=== PATIENT | male | born 1970 ===

== ENCOUNTER 2020-07-03 10:39 | Inpatient (IN) | payer SELFPAY ==
--- NOTE | 2020-07-03 11:07 | EDM.PDOC ---
ED HPI GENERAL MEDICAL PROBLEM - General Stated Complaint: Cough Time Seen by Provider: 07/03/20 10:45 - History of Present Illness INITIAL COMMENTS - FREE TEXT/NARRATIVE: 49-year-old male who denies any other medical problems non-smoker who is presenting with 8 days of primarily dry cough associated with mild pain in his abdomen during the active coughing associated with one episode of diarrhea early in the course no known fevers no myalgias no chest pain patient otherwise feels quite well. No lower extremity pain or swelling he has drank alcohol in the past but has not had any alcohol since the symptoms began. No exacerbating or alleviating factors. Patient does report anorexia and minimal solid food intake over the last few days but is continued to try and drink plenty of fluids no vomiting. - Related Data Allergies Allergy/AdvReac Type Severity Reaction Status Date / Time No Known Allergies Allergy Verified 07/03/20 11:13 Home Meds: Home Meds . [No Known Home Meds] 07/03/20 [History] ED ROS GENERAL - Review of Systems Review Of Systems: See Below Free Text/Narrative/Comment: General: No fever. Skin: No rash. ENT: No sore throat. Neck: No neck stiffness. Respiratory: Per HPI Cardiac: No chest pain. Gastrointestinal: Per HPI Urinary: No dysuria. Musculoskeletal: No myalgias/arthralgias. Neurologic: No headache. ED EXAM, GENERAL - Physical Exam Exam: See Below Free Text/Narrative:: General Appearance: No acute distress, appears comfortable Skin: No rash HEENT: Normocephalic/atraumatic, sclera anicteric, mucous membranes moist Neck: Normal range of motion Chest and Lungs: Normal work of breathing, no wheezing or rhonchi, crackles in the bilateral bases which partially clear with deep breaths Cardiovascular: Regular rate and rhythm, no murmur Abdomen: Soft, non-tender Back: Normal Musculoskeletal: No edema or tenderness Neurologic: Awake, alert, no obvious deficits, moving all extremities Psychiatric: Appropriate, cooperative #1 Interpretation EKG Date: 07/03/20 Time: 11:25 EKG Interpretation Comments: Sinus tachycardia with rate of 101 T wave inversions in 3 and aVF likely baseline no acute ischemia intervals normal Course - Vital Signs Last Recorded V/S: Last Vital Signs Temp 101.7 F H 07/03/20 11:17 Pulse 92 07/03/20 12:37 Resp 18 07/03/20 12:37 BP 124/73 07/03/20 12:37 Pulse Ox 94 L 07/03/20 12:39 - Orders/Labs/Meds Orders: Active Orders 24 hr Category Date Time Status EKG Documentation Completion [RC] STAT Care 07/03/20 10:57 Active BILIRUBIN DIRECT [CHEM] DAILY Lab 07/03/20 13:15 Ordered BILIRUBIN DIRECT [CHEM] DAILY Lab 07/04/20 13:15 Ordered BILIRUBIN DIRECT [CHEM] DAILY Lab 07/05/20 13:15 Ordered BILIRUBIN DIRECT [CHEM] DAILY Lab 07/06/20 13:15 Ordered BILIRUBIN DIRECT [CHEM] DAILY Lab 07/07/20 13:15 Ordered COMPREHENSIVE METABOLIC PN,CMP [CHEM] DAILY Lab 07/03/20 13:15 Ordered COMPREHENSIVE METABOLIC PN,CMP [CHEM] DAILY Lab 07/04/20 13:15 Ordered COMPREHENSIVE METABOLIC PN,CMP [CHEM] DAILY Lab 07/05/20 13:15 Ordered COMPREHENSIVE METABOLIC PN,CMP [CHEM] DAILY Lab 07/06/20 13:15 Ordered COMPREHENSIVE METABOLIC PN,CMP [CHEM] DAILY Lab 07/07/20 13:15 Ordered Remdesivir 200 mg Med 07/03/20 13:01 Ordered Sodium Chloride 0.9% [Normal Saline] 250 ml IV ONETIME Sodium Chloride 0.9% [Saline Flush] Med 07/03/20 10:56 Active 10 ml FLUSH ASDIRECTED PRN Sodium Chloride 0.9% [Saline Flush] Med 07/03/20 10:56 Active 2.5 ml FLUSH ASDIRECTED PRN Saline Lock Insert [OM.PC] Stat Oth 07/03/20 10:56 Ordered Medication Orders Sodium Chloride (Saline Flush) 10 ml FLUSH ASDIRECTED PRN PRN Reason: Keep Vein Open Last Admin: 07/03/20 11:17 Dose: 10 ml Documented by: DAVID Sodium Chloride (Saline Flush) 2.5 ml FLUSH ASDIRECTED PRN PRN Reason: Keep Vein Open Last Admin: 07/03/20 11:17 Dose: 2.5 ml Documented by: DAVID Labs: Laboratory Tests 07/03/20 07/03/20 07/03/20 Range/Units 11:25 11:25 11:25 WBC 4.95 (4.0-11.0) K/uL RBC 4.74 (4.50-5.90) M/uL Hgb 15.1 (13.0-17.0) g/dL Hct 44.0 (38.0-50.0) % MCV 92.8 (80.0-98.0) fL MCH 31.9 (27.0-32.0) pg MCHC 34.3 (31.0-37.0) g/dL RDW Std Deviation 44.5 (28.0-62.0) fl RDW Coeff of Flakita 13 (11.0-15.0) % Plt Count 93 L (150-400) K/uL MPV 12.00 (7.40-12.00) fL Neut % (Auto) 76.7 (48.0-80.0) % Lymph % (Auto) 16.4 (16.0-40.0) % [place] % (Auto) 6.9 (0.0-15.0) % Eos % (Auto) 0.0 (0.0-7.0) % Baso % (Auto) 0.0 (0.0-1.5) % Neut # (Auto) 3.8 (1.4-5.7) K/uL Lymph # (Auto) 0.8 (0.6-2.4) K/uL [place] # (Auto) 0.3 (0.0-0.8) K/uL Eos # (Auto) 0.0 (0.0-0.7) K/uL Baso # (Auto) 0.0 (0.0-0.1) K/uL Nucleated RBC % 0.0 /100WBC Nucleated RBCs # 0 K/uL Sodium 139 (136-148) mmol/L Potassium 3.7 (3.5-5.1) mmol/L Chloride 101 (98-107) mmol/L Carbon Dioxide 27.2 (21.0-32.0) mmol/L BUN 16 (7.0-18.0) mg/dL Creatinine 1.1 (0.8-1.3) mg/dL Est Cr Clr Drug Dosing 71.44 mL/min Estimated GFR (MDRD) > 60.0 ml/min Glucose 118 H (74-106) mg/dL Calcium 8.0 L (8.5-10.1) mg/dL Total Bilirubin 0.4 (0.2-1.0) mg/dL AST 90 H (15-37) IU/L ALT 51 (14-63) IU/L Alkaline Phosphatase 49 (46-116) U/L Troponin I < 0.050 (0.000-0.056) ng/mL B-Natriuretic Peptide 11 (<100) PG/ML Total Protein 7.5 (6.4-8.2) g/dL Albumin 3.1 L (3.4-5.0) g/dL Globulin 4.4 H (2.6-4.0) g/dL Albumin/Globulin Ratio 0.7 L (0.9-1.6) Influenza Type A RNA (NEGATIVE) Influenza Type B RNA (NEGATIVE) SARS-CoV-2 RNA (KOBE) (NEGATIVE) 07/03/20 Range/Units 11:30 WBC (4.0-11.0) K/uL RBC (4.50-5.90) M/uL Hgb (13.0-17.0) g/dL Hct (38.0-50.0) % MCV (80.0-98.0) fL MCH (27.0-32.0) pg MCHC (31.0-37.0) g/dL RDW Std Deviation (28.0-62.0) fl RDW Coeff of Flakita (11.0-15.0) % Plt Count (150-400) K/uL MPV (7.40-12.00) fL Neut % (Auto) (48.0-80.0) % Lymph % (Auto) (16.0-40.0) % [place] % (Auto) (0.0-15.0) % Eos % (Auto) (0.0-7.0) % Baso % (Auto) (0.0-1.5) % Neut # (Auto) (1.4-5.7) K/uL Lymph # (Auto) (0.6-2.4) K/uL [place] # (Auto) (0.0-0.8) K/uL Eos # (Auto) (0.0-0.7) K/uL Baso # (Auto) (0.0-0.1) K/uL Nucleated RBC % /100WBC Nucleated RBCs # K/uL Sodium (136-148) mmol/L Potassium (3.5-5.1) mmol/L Chloride (98-107) mmol/L Carbon Dioxide (21.0-32.0) mmol/L BUN (7.0-18.0) mg/dL Creatinine (0.8-1.3) mg/dL Est Cr Clr Drug Dosing mL/min Estimated GFR (MDRD) ml/min Glucose (74-106) mg/dL Calcium (8.5-10.1) mg/dL Total Bilirubin (0.2-1.0) mg/dL AST (15-37) IU/L ALT (14-63) IU/L Alkaline Phosphatase (46-116) U/L Troponin I (0.000-0.056) ng/mL B-Natriuretic Peptide (<100) PG/ML Total Protein (6.4-8.2) g/dL Albumin (3.4-5.0) g/dL Globulin (2.6-4.0) g/dL Albumin/Globulin Ratio (0.9-1.6) Influenza Type A RNA NEGATIVE (NEGATIVE) Influenza Type B RNA NEGATIVE (NEGATIVE) SARS-CoV-2 RNA (KOBE) POSITIVE H (NEGATIVE) Meds: Medications Generic Name Dose Route Start Last Admin Trade Name Freq PRN Reason Stop Dose Admin Sodium Chloride 10 ml 07/03/20 10:56 07/03/20 11:17 Saline Flush FLUSH 10 ml ASDIRECTED PRN Administration Keep Vein Open Sodium Chloride 2.5 ml 07/03/20 10:56 07/03/20 11:17 Saline Flush FLUSH 2.5 ml ASDIRECTED PRN Administration Keep Vein Open Discontinued Medications Generic Name Dose Route Start Last Admin Trade Name Freq PRN Reason Stop Dose Admin Acetaminophen 650 mg 07/03/20 11:12 07/03/20 11:17 Tylenol PO 07/03/20 11:13 650 mg NOW ONE Administration Dexamethasone 6 mg 07/03/20 12:36 Decadron IVPUSH 07/03/20 12:37 ONETIME ONE Departure - Departure Time of Disposition: 12:28 Disposition: Admitted As Inpatient 67 Condition: Good Clinical Impression: COVID-19, Hypoxia - Discharge Information *PRESCRIPTION DRUG MONITORING PROGRAM REVIEWED*: Not Applicable *COPY OF PRESCRIPTION DRUG MONITORING REPORT IN PATIENT EDUARDO: Not Applicable Instructions: COVID-19 Frequently Asked Questions, Prevent the Spread of COVID- 19 if You Are Sick - [facility] Referrals: PCP,None [Primary Care Provider] - Additional Instructions: [facility] - Primary Care [address] [place] [address] [facility] [address] [place] [address] The following information is given to patients seen in the emergency department who are being discharged to home. This information is to outline your options for follow-up care. We provide all patients seen in our emergency department with a follow-up referral. The need for follow-up, as well as the timing and circumstances, are variable depending upon the specifics of your emergency department visit. If you don't have a primary care physician on staff, we will provide you with a referral. We always advise you to contact your personal physician following an emergency department visit to inform them of the circumstance of the visit and for follow-up with them and/or the need for any referrals to a consulting specialist. The emergency department will also refer you to a specialist when appropriate. This referral assures that you have the opportunity for follow-up care with a specialist. All of these measure are taken in an effort to provide you with optimal care, which includes your follow-up. Under all circumstances we always encourage you to contact your private physician who remains a resource for coordinating your care. When calling for follow-up care, please make the office aware that this follow-up is from your recent emergency room visit. If for any reason you are refused follow-up, please contact the [facility] Emergency Department at and asked to speak to the emergency department charge nurse. Sepsis Event Note (ED) - Focused Exam Vital Signs: Vital Signs Temp Temp Pulse Resp BP Pulse Ox 07/03/20 12:39 94 L 07/03/20 12:37 92 18 124/73 88 L 07/03/20 12:00 105 H 18 107/74 94 L 07/03/20 11:30 102 H 18 129/78 94 L 07/03/20 11:17 101.7 F H 07/03/20 11:00 20 94 L 07/03/20 10:50 101.7 F H 107 H 20 129/75 90 L - My Orders Last 24 Hours: My Active Orders 07/03/20 10:56 Sodium Chloride 0.9% [Saline Flush] 10 ml FLUSH ASDIRECTED PRN Sodium Chloride 0.9% [Saline Flush] 2.5 ml FLUSH ASDIRECTED PRN Saline Lock Insert [OM.PC] Stat 07/03/20 10:57 EKG Documentation Completion [RC] STAT 07/03/20 13:01 Remdesivir 200 mg Sodium Chloride 0.9% [Normal Saline] 250 ml IV ONETIME 07/03/20 13:15 BILIRUBIN DIRECT [CHEM] DAILY COMPREHENSIVE METABOLIC PN,CMP [CHEM] DAILY 07/04/20 13:15 BILIRUBIN DIRECT [CHEM] DAILY COMPREHENSIVE METABOLIC PN,CMP [CHEM] DAILY 07/05/20 13:15 BILIRUBIN DIRECT [CHEM] DAILY COMPREHENSIVE METABOLIC PN,CMP [CHEM] DAILY 07/06/20 13:15 BILIRUBIN DIRECT [CHEM] DAILY COMPREHENSIVE METABOLIC PN,CMP [CHEM] DAILY 07/07/20 13:15 BILIRUBIN DIRECT [CHEM] DAILY COMPREHENSIVE METABOLIC PN,CMP [CHEM] DAILY - Assessment/Plan Last 24 Hours: My Active Orders 07/03/20 10:56 Sodium Chloride 0.9% [Saline Flush] 10 ml FLUSH ASDIRECTED PRN Sodium Chloride 0.9% [Saline Flush] 2.5 ml FLUSH ASDIRECTED PRN Saline Lock Insert [OM.PC] Stat 07/03/20 10:57 EKG Documentation Completion [RC] STAT 07/03/20 13:01 Remdesivir 200 mg Sodium Chloride 0.9% [Normal Saline] 250 ml IV ONETIME 07/03/20 13:15 BILIRUBIN DIRECT [CHEM] DAILY COMPREHENSIVE METABOLIC PN,CMP [CHEM] DAILY 07/04/20 13:15 BILIRUBIN DIRECT [CHEM] DAILY COMPREHENSIVE METABOLIC PN,CMP [CHEM] DAILY 07/05/20 13:15 BILIRUBIN DIRECT [CHEM] DAILY COMPREHENSIVE METABOLIC PN,CMP [CHEM] DAILY 07/06/20 13:15 BILIRUBIN DIRECT [CHEM] DAILY COMPREHENSIVE METABOLIC PN,CMP [CHEM] DAILY 07/07/20 13:15 BILIRUBIN DIRECT [CHEM] DAILY COMPREHENSIVE METABOLIC PN,CMP [CHEM] DAILY Assessment:: Nontoxic-appearing 49-year-old male who denies past medical history is presenting with nonproductive cough poor appetite and one episode of diarrhea for the last 8 days. Certainly Covid is a consideration of the viral syndrome also consideration patient has some scant crackles in the bilateral bases on exam but normal work of breathing he has no lower extremity pain or swelling he does not clinically appear to be in decompensated heart failure but this is also a possibility EKG troponin BMP ordered as well as CBC and CMP he has no abdominal pain and no abdominal tenderness that would suggest appendicitis diverticulitis or any ovarian pathology. Room air O2 saturation in the low 90s heart rate in the upper 90s. Not acutely toxic 1226: Patient's labs notable for mild thrombocytopenia likely related to viral infection. Chest x-ray shows diffuse patchy airspace opacities consistent with Covid and his COVID-19 test is positive. I do think this is the cause of the patient's symptoms. Patient is hypoxic with a room air O2 sat in the upper 80s. For this reason patient was placed on nasal cannula which he had a good response to. Given this hypoxia patient given a dose of Decadron patient d iscussed with Dr. Fuentes and we will admit for acute hypoxic respiratory failure due to COVID-19. Per discussion with Dr. Fuentes patient is a candidate for remdesivir as well and this is been ordered. My entire encounter was conducted with a video airport attendant.
[2020-07-03] MEDS ORDERED: Acetaminophen 325 MG Tab PO ONE (11:12)
[2020-07-03] MEDS: Sodium Chloride 0.9% 10 ML Syringe FLUSH PRN (11:17)
[2020-07-03] MEDS: Sodium Chloride 0.9% 2.5 ML Syringe FLUSH PRN (11:17)
[2020-07-03 12:01] LABS: BLOOD UREA NITROGEN,BUN 16 mg/dL (7.0-18.0); CARBON DIOXIDE,CO2 27.2 mmol/L (21.0-32.0); CHLORIDE,CL 101 mmol/L (98-107); GLUCOSE RANDOM 118 mg/dL (74-106); POTASSIUM,K 3.7 mmol/L (3.5-5.1); SODIUM,NA 139 mmol/L (136-148)
--- NOTE | 2020-07-03 12:12 | CR ---
INDICATION: Cough myalgias, crackles on exam TECHNIQUE: Chest 1 view. COMPARISON: None. FINDINGS: The heart is normal in size. There are patchy bilateral airspace opacities. Negative for pleural effusion or pneumothorax. The bones are unremarkable. IMPRESSION: Bilateral patchy airspace opacities, findings which can be seen with a viral infectious process such as COVID-19 or multifocal pneumonia. Dictated by Noemí Chauhan MD @ Jul 03 2020 12:10PM Signed by Dr. Noemí Chauhan @ Jul 03 2020 12:11PM
[2020-07-03 12:15] LABS: CORONAVIRUS COVID-19 NAA POSITIVE (NEGATIVE); INFLUENZA A NAA NEGATIVE (NEGATIVE); INFLUENZA B NAA NEGATIVE (NEGATIVE)
[2020-07-03] MEDS ORDERED: Dexamethasone 10 MG/ML SDV IVPUSH ONE (12:36)
[2020-07-03] MEDS ORDERED: REMDESIVIR 200 MG in Sodium Chloride 0.9% 250 ML IV ONE ×2 (13:01→13:45)
[2020-07-03] MEDS: Enoxaparin 40 MG/0.4 ML Syringe SUBCUT SCH (16:02)
--- NOTE | 2020-07-03 20:36 | PCM.HP.2 ---
H&P History of Present Illness - General Date of Service: 07/03/20 Admit Problem/Dx: Admission Diagnosis/Problem Admission Diagnosis/Problem Hypoxia - History of Present Illness Initial Comments - Free Text/Narative: 49 yo male who presents to the ED with complaint of cough for eight days. Patient denies any fevers, shortness of breath, chest pain, or fatigue. PAtient was noted to be satting in mid 80s on room air. Patient tested positive for COVID and CXR reported bilateral patchy opacities. - Related Data Allergies/Adverse Reactions: Allergies Allergy/AdvReac Type Severity Reaction Status Date / Time No Known Allergies Allergy Verified 07/03/20 15:04 Home Medications: Home Meds . [No Known Home Meds] 07/03/20 [History] Past Medical History - Past Health History Medical/Surgical History: Denies Medical/Surgical History - Past Surgical History GI Surgical History: Reports: Other (See Below) Other GI Surgeries/Procedures: pt has scar on left lower side Social & Family History - Family History Family Medical History: No Pertinent Family History - Tobacco Use Tobacco Use Status *Q: Former Tobacco User Used Tobacco, but Quit: Yes Month/Year Tobacco Last Used: 8 yrs ago Second Hand Smoke Exposure: No - Caffeine Use Caffeine Use: Reports: Coffee - Recreational Drug Use Recreational Drug Use: No H&P Review of Systems - Review of Systems: Review Of Systems: Comprehensive ROS is negative, except as noted in HPI. Exam - Exam Exam: See Below - Vital Signs Vital Signs: Last Vital Signs Temp 36.2 C 07/03/20 19:38 Pulse 92 07/03/20 19:38 Resp 20 07/03/20 19:38 BP 111/58 L 07/03/20 19:38 Pulse Ox 92 L 07/03/20 19:38 Weight: 208.3 kg - Exam General: Alert, Oriented HEENT: Mucosa Moist & [place] Lungs: Clear to Auscultation, Normal Respiratory Effort Cardiovascular: Regular Rate, Regular Rhythm GI/Abdominal Exam: Normal Bowel Sounds, Soft, Non-Tender Extremities: Non-Tender, No Pedal Edema Skin: Warm, Dry, Intact Neurological: Cranial Nerves Intact - Patient Data Lab Results Last 24 hrs: Laboratory Results - last 24 hr 07/03/20 07/03/20 07/03/20 Range/Units 11:25 11:25 11:25 WBC 4.95 (4.0-11.0) K/uL RBC 4.74 (4.50-5.90) M/uL Hgb 15.1 (13.0-17.0) g/dL Hct 44.0 (38.0-50.0) % MCV 92.8 (80.0-98.0) fL MCH 31.9 (27.0-32.0) pg MCHC 34.3 (31.0-37.0) g/dL RDW Std Deviation 44.5 (28.0-62.0) fl RDW Coeff of Flakita 13 (11.0-15.0) % Plt Count 93 L (150-400) K/uL MPV 12.00 (7.40-12.00) fL Neut % (Auto) 76.7 (48.0-80.0) % Lymph % (Auto) 16.4 (16.0-40.0) % [place] % (Auto) 6.9 (0.0-15.0) % Eos % (Auto) 0.0 (0.0-7.0) % Baso % (Auto) 0.0 (0.0-1.5) % Neut # (Auto) 3.8 (1.4-5.7) K/uL Lymph # (Auto) 0.8 (0.6-2.4) K/uL [place] # (Auto) 0.3 (0.0-0.8) K/uL Eos # (Auto) 0.0 (0.0-0.7) K/uL Baso # (Auto) 0.0 (0.0-0.1) K/uL Nucleated RBC % 0.0 /100WBC Nucleated RBCs # 0 K/uL Sodium 139 (136-148) mmol/L Potassium 3.7 (3.5-5.1) mmol/L Chloride 101 (98-107) mmol/L Carbon Dioxide 27.2 (21.0-32.0) mmol/L BUN 16 (7.0-18.0) mg/dL Creatinine 1.1 (0.8-1.3) mg/dL Est Cr Clr Drug Dosing 71.44 mL/min Estimated GFR (MDRD) > 60.0 ml/min Glucose 118 H (74-106) mg/dL Calcium 8.0 L (8.5-10.1) mg/dL Total Bilirubin 0.4 (0.2-1.0) mg/dL Direct Bilirubin 0.10 (0.0-0.5) mg/dL AST 90 H (15-37) IU/L ALT 51 (14-63) IU/L Alkaline Phosphatase 49 (46-116) U/L Troponin I < 0.050 (0.000-0.056) ng/mL B-Natriuretic Peptide 11 (<100) PG/ML Total Protein 7.5 (6.4-8.2) g/dL Albumin 3.1 L (3.4-5.0) g/dL Globulin 4.4 H (2.6-4.0) g/dL Albumin/Globulin Ratio 0.7 L (0.9-1.6) Influenza Type A RNA (NEGATIVE) Influenza Type B RNA (NEGATIVE) SARS-CoV-2 RNA (KOBE) (NEGATIVE) 07/03/20 Range/Units 11:30 WBC (4.0-11.0) K/uL RBC (4.50-5.90) M/uL Hgb (13.0-17.0) g/dL Hct (38.0-50.0) % MCV (80.0-98.0) fL MCH (27.0-32.0) pg MCHC (31.0-37.0) g/dL RDW Std Deviation (28.0-62.0) fl RDW Coeff of Flakita (11.0-15.0) % Plt Count (150-400) K/uL MPV (7.40-12.00) fL Neut % (Auto) (48.0-80.0) % Lymph % (Auto) (16.0-40.0) % [place] % (Auto) (0.0-15.0) % Eos % (Auto) (0.0-7.0) % Baso % (Auto) (0.0-1.5) % Neut # (Auto) (1.4-5.7) K/uL Lymph # (Auto) (0.6-2.4) K/uL [place] # (Auto) (0.0-0.8) K/uL Eos # (Auto) (0.0-0.7) K/uL Baso # (Auto) (0.0-0.1) K/uL Nucleated RBC % /100WBC Nucleated RBCs # K/uL Sodium (136-148) mmol/L Potassium (3.5-5.1) mmol/L Chloride (98-107) mmol/L Carbon Dioxide (21.0-32.0) mmol/L BUN (7.0-18.0) mg/dL Creatinine (0.8-1.3) mg/dL Est Cr Clr Drug Dosing mL/min Estimated GFR (MDRD) ml/min Glucose (74-106) mg/dL Calcium (8.5-10.1) mg/dL Total Bilirubin (0.2-1.0) mg/dL Direct Bilirubin (0.0-0.5) mg/dL AST (15-37) IU/L ALT (14-63) IU/L Alkaline Phosphatase (46-116) U/L Troponin I (0.000-0.056) ng/mL B-Natriuretic Peptide (<100) PG/ML Total Protein (6.4-8.2) g/dL Albumin (3.4-5.0) g/dL Globulin (2.6-4.0) g/dL Albumin/Globulin Ratio (0.9-1.6) Influenza Type A RNA NEGATIVE (NEGATIVE) Influenza Type B RNA NEGATIVE (NEGATIVE) SARS-CoV-2 RNA (KOBE) POSITIVE H (NEGATIVE) Result Diagrams: 07/03/20 11:25 07/03/20 11:25 Sepsis Event Note - Evaluation Sepsis Screening Result: No Definite Risk - Focused Exam Vital Signs: Vital Signs Temp Temp Pulse Resp BP Pulse Ox 07/03/20 19:38 36.2 C 92 20 111/58 L 92 L 07/03/20 17:00 36.6 C 84 18 110/63 92 L 07/03/20 14:06 36.7 C 93 20 102/73 89 L 07/03/20 13:30 36.2 C 93 18 116/75 96 07/03/20 12:39 94 L 07/03/20 12:37 92 18 124/73 88 L 07/03/20 12:00 105 H 18 107/74 94 L 07/03/20 11:30 102 H 18 129/78 94 L 07/03/20 11:17 38.7 C H 07/03/20 11:00 20 94 L 07/03/20 10:50 38.7 C H 107 H 20 129/75 90 L Problem List Initiated/Reviewed/Updated: Yes Orders Last 24hrs: Active Orders 24 hr Category Date Time Status Admission Status [Patient Status] [ADT] Timed ADT 07/04/20 05:00 Active Vital Signs [RC] Q4H Care 07/03/20 13:47 Active Regular Diet [DIET] Diet 07/03/20 Dinner Active BILIRUBIN DIRECT [CHEM] DAILY Lab 07/04/20 13:15 Ordered BILIRUBIN DIRECT [CHEM] DAILY Lab 07/05/20 13:15 Ordered BILIRUBIN DIRECT [CHEM] DAILY Lab 07/06/20 13:15 Ordered BILIRUBIN DIRECT [CHEM] DAILY Lab 07/07/20 13:15 Ordered CBC WITH AUTO DIFF [HEME] Routine Lab 07/04/20 05:00 Ordered COMPREHENSIVE METABOLIC PN,CMP [CHEM] DAILY Lab 07/04/20 13:15 Ordered COMPREHENSIVE METABOLIC PN,CMP [CHEM] DAILY Lab 07/05/20 13:15 Ordered COMPREHENSIVE METABOLIC PN,CMP [CHEM] DAILY Lab 07/06/20 13:15 Ordered COMPREHENSIVE METABOLIC PN,CMP [CHEM] DAILY Lab 07/07/20 13:15 Ordered COMPREHENSIVE METABOLIC PN,CMP [CHEM] Routine Lab 07/04/20 05:00 Ordered Enoxaparin [Lovenox] Med 07/03/20 16:00 Active 40 mg SUBCUT Q24H Sodium Chloride 0.9% [Saline Flush] Med 07/03/20 10:56 Active 10 ml FLUSH ASDIRECTED PRN Sodium Chloride 0.9% [Saline Flush] Med 07/03/20 10:56 Active 2.5 ml FLUSH ASDIRECTED PRN Saline Lock Insert [OM.PC] Stat Oth 07/03/20 10:56 Ordered Medication Orders Enoxaparin Sodium (Lovenox) 40 mg SUBCUT Q24H YADY Last Admin: 07/03/20 16:02 Dose: 40 mg Documented by: KASHIFPRI Sodium Chloride (Saline Flush) 10 ml FLUSH ASDIRECTED PRN PRN Reason: Keep Vein Open Last Admin: 07/03/20 11:17 Dose: 10 ml Documented by: DAVID Sodium Chloride (Saline Flush) 2.5 ml FLUSH ASDIRECTED PRN PRN Reason: Keep Vein Open Last Admin: 07/03/20 11:17 Dose: 2.5 ml Documented by: DAVID Assessment/Plan Comment:: 49 yo male admitted for COVID pneumonia. We will treat with dexamethasone and remdisivir. We will wean NC O2 as tolerated. We will place on lovenox for VTE prophylaxis.
[2020-07-03] MEDS ORDERED: Benzonatate 100 MG Cap PO PRN (21:44)
[2020-07-04 06:56] LABS: BLOOD UREA NITROGEN,BUN 15 mg/dL (7.0-18.0); CARBON DIOXIDE,CO2 27.7 mmol/L (21.0-32.0); CHLORIDE,CL 104 mmol/L (98-107); GLUCOSE RANDOM 151 mg/dL (74-106); POTASSIUM,K 3.6 mmol/L (3.5-5.1); SODIUM,NA 140 mmol/L (136-148)
[2020-07-04] MEDS ORDERED: Albuterol/Ipratropium 4 GM Inhalation Spray INH PRN (08:00)
--- NOTE | 2020-07-04 08:16 | PCM.PN ---
- General Info Date of Service: 07/04/20 Subjective Update: Reports breathing about the same as yesterday. Reports coughing when trying to take a deep breath. Tolerated dinner last night. No fevers, chills, chest pain, nausea or vomiting. - Patient Data Vitals - Most Recent: Last Vital Signs Temp 36.9 C 07/04/20 04:07 Pulse 77 07/04/20 04:07 Resp 20 07/04/20 04:07 BP 116/63 07/04/20 04:07 Pulse Ox 90 L 07/04/20 04:07 Weight - Most Recent: 208.3 kg I&O - Last 24 Hours: Intake & Output 07/03/20 07/04/20 07/04/20 22:59 06:59 14:59 Intake Total 290 300 Output Total 400 450 Balance -110 -150 Lab Results Last 24 Hours: Laboratory Results - last 24 hr 07/03/20 07/03/20 07/03/20 Range/Units 11:25 11:25 11:25 WBC 4.95 (4.0-11.0) K/uL RBC 4.74 (4.50-5.90) M/uL Hgb 15.1 (13.0-17.0) g/dL Hct 44.0 (38.0-50.0) % MCV 92.8 (80.0-98.0) fL MCH 31.9 (27.0-32.0) pg MCHC 34.3 (31.0-37.0) g/dL RDW Std Deviation 44.5 (28.0-62.0) fl RDW Coeff of Flakita 13 (11.0-15.0) % Plt Count 93 L (150-400) K/uL MPV 12.00 (7.40-12.00) fL Neut % (Auto) 76.7 (48.0-80.0) % Lymph % (Auto) 16.4 (16.0-40.0) % [place] % (Auto) 6.9 (0.0-15.0) % Eos % (Auto) 0.0 (0.0-7.0) % Baso % (Auto) 0.0 (0.0-1.5) % Neut # (Auto) 3.8 (1.4-5.7) K/uL Lymph # (Auto) 0.8 (0.6-2.4) K/uL [place] # (Auto) 0.3 (0.0-0.8) K/uL Eos # (Auto) 0.0 (0.0-0.7) K/uL Baso # (Auto) 0.0 (0.0-0.1) K/uL Nucleated RBC % 0.0 /100WBC Nucleated RBCs # 0 K/uL Sodium 139 (136-148) mmol/L Potassium 3.7 (3.5-5.1) mmol/L Chloride 101 (98-107) mmol/L Carbon Dioxide 27.2 (21.0-32.0) mmol/L BUN 16 (7.0-18.0) mg/dL Creatinine 1.1 (0.8-1.3) mg/dL Est Cr Clr Drug Dosing 71.44 mL/min Estimated GFR (MDRD) > 60.0 ml/min Glucose 118 H (74-106) mg/dL Calcium 8.0 L (8.5-10.1) mg/dL Total Bilirubin 0.4 (0.2-1.0) mg/dL Direct Bilirubin 0.10 (0.0-0.5) mg/dL AST 90 H (15-37) IU/L ALT 51 (14-63) IU/L Alkaline Phosphatase 49 (46-116) U/L Troponin I < 0.050 (0.000-0.056) ng/mL B-Natriuretic Peptide 11 (<100) PG/ML Total Protein 7.5 (6.4-8.2) g/dL Albumin 3.1 L (3.4-5.0) g/dL Globulin 4.4 H (2.6-4.0) g/dL Albumin/Globulin Ratio 0.7 L (0.9-1.6) Influenza Type A RNA (NEGATIVE) Influenza Type B RNA (NEGATIVE) SARS-CoV-2 RNA (KOBE) (NEGATIVE) 07/03/20 07/04/20 07/04/20 Range/Units 11:30 06:15 06:15 WBC 5.80 (4.0-11.0) K/uL RBC 4.67 (4.50-5.90) M/uL Hgb 14.6 (13.0-17.0) g/dL Hct 43.2 (38.0-50.0) % MCV 92.5 (80.0-98.0) fL MCH 31.3 (27.0-32.0) pg MCHC 33.8 (31.0-37.0) g/dL RDW Std Deviation 43.9 (28.0-62.0) fl RDW Coeff of Flakita 13 (11.0-15.0) % Plt Count 110 L (150-400) K/uL MPV 11.30 (7.40-12.00) fL Neut % (Auto) 73.9 (48.0-80.0) % Lymph % (Auto) 16.9 (16.0-40.0) % [place] % (Auto) 9.0 (0.0-15.0) % Eos % (Auto) 0.0 (0.0-7.0) % Baso % (Auto) 0.2 (0.0-1.5) % Neut # (Auto) 4.3 (1.4-5.7) K/uL Lymph # (Auto) 1.0 (0.6-2.4) K/uL [place] # (Auto) 0.5 (0.0-0.8) K/uL Eos # (Auto) 0.0 (0.0-0.7) K/uL Baso # (Auto) 0.0 (0.0-0.1) K/uL Nucleated RBC % 0.0 /100WBC Nucleated RBCs # 0 K/uL Sodium 140 (136-148) mmol/L Potassium 3.6 (3.5-5.1) mmol/L Chloride 104 (98-107) mmol/L Carbon Dioxide 27.7 (21.0-32.0) mmol/L BUN 15 (7.0-18.0) mg/dL Creatinine 0.9 (0.8-1.3) mg/dL Est Cr Clr Drug Dosing 87.31 mL/min Estimated GFR (MDRD) > 60.0 ml/min Glucose 151 H (74-106) mg/dL Calcium 7.8 L (8.5-10.1) mg/dL Total Bilirubin 0.3 (0.2-1.0) mg/dL Direct Bilirubin (0.0-0.5) mg/dL AST 83 H (15-37) IU/L ALT 46 (14-63) IU/L Alkaline Phosphatase 47 (46-116) U/L Troponin I (0.000-0.056) ng/mL B-Natriuretic Peptide (<100) PG/ML Total Protein 7.1 (6.4-8.2) g/dL Albumin 2.8 L (3.4-5.0) g/dL Globulin 4.3 H (2.6-4.0) g/dL Albumin/Globulin Ratio 0.7 L (0.9-1.6) Influenza Type A RNA NEGATIVE (NEGATIVE) Influenza Type B RNA NEGATIVE (NEGATIVE) SARS-CoV-2 RNA (KOBE) POSITIVE H (NEGATIVE) Med Orders - Current: Current Medications Benzonatate (Tessalon Perles) 100 mg PO TID PRN PRN Reason: Cough Last Admin: 07/04/20 00:08 Dose: 100 mg Documented by: Dexamethasone (Dexamethasone) 6 mg PO Q24H YADY Enoxaparin Sodium (Lovenox) 40 mg SUBCUT Q24H [facility] Last Admin: 07/03/20 16:02 Dose: 40 mg Documented by: Remdesivir 100 mg/ Sodium (Chloride) 100 mls @ 100 mls/hr IV Q24H YADY Stop: 07/07/20 14:59 Sodium Chloride (Saline Flush) 10 ml FLUSH ASDIRECTED PRN PRN Reason: Keep Vein Open Last Admin: 07/03/20 11:17 Dose: 10 ml Documented by: Sodium Chloride (Saline Flush) 2.5 ml FLUSH ASDIRECTED PRN PRN Reason: Keep Vein Open Last Admin: 07/03/20 11:17 Dose: 2.5 ml Documented by: Discontinued Medications Acetaminophen (Tylenol) 650 mg PO NOW ONE Stop: 07/03/20 11:13 Last Admin: 07/03/20 11:17 Dose: 650 mg Documented by: Albuterol/Ipratropium (Combivent Respimat) 0 gm INH Q4H PRN PRN Reason: Dyspnea Dexamethasone (Decadron) 6 mg IVPUSH ONETIME ONE Stop: 07/03/20 12:37 Last Admin: 07/03/20 13:34 Dose: 6 mg Documented by: Remdesivir 200 mg/ Sodium (Chloride) 250 mls @ 250 mls/hr IV ONETIME ONE Stop: 07/03/20 13:02 Last Admin: 07/03/20 14:41 Dose: Not Given Documented by: Remdesivir 200 mg/ Sodium (Chloride) 250 mls @ 250 mls/hr IV ONETIME ONE Stop: 07/03/20 14:44 Last Admin: 07/03/20 14:21 Dose: 250 mls/hr Documented by: - Exam General: Alert, Oriented, Cooperative, No Acute Distress Lungs: Clear to Auscultation, Other (poor inspiratory effort) Cardiovascular: Regular Rate, Regular Rhythm GI/Abdominal Exam: Normal Bowel Sounds, Soft, Non-Tender, No Distention Extremities: Normal Inspection, No Pedal Edema - Patient Data Lab Results Last 24 hrs: Laboratory Results - last 24 hr 07/03/20 07/03/20 07/03/20 Range/Units 11:25 11:25 11:25 WBC 4.95 (4.0-11.0) K/uL RBC 4.74 (4.50-5.90) M/uL Hgb 15.1 (13.0-17.0) g/dL Hct 44.0 (38.0-50.0) % MCV 92.8 (80.0-98.0) fL MCH 31.9 (27.0-32.0) pg MCHC 34.3 (31.0-37.0) g/dL RDW Std Deviation 44.5 (28.0-62.0) fl RDW Coeff of Flakita 13 (11.0-15.0) % Plt Count 93 L (150-400) K/uL MPV 12.00 (7.40-12.00) fL Neut % (Auto) 76.7 (48.0-80.0) % Lymph % (Auto) 16.4 (16.0-40.0) % [place] % (Auto) 6.9 (0.0-15.0) % Eos % (Auto) 0.0 (0.0-7.0) % Baso % (Auto) 0.0 (0.0-1.5) % Neut # (Auto) 3.8 (1.4-5.7) K/uL Lymph # (Auto) 0.8 (0.6-2.4) K/uL [place] # (Auto) 0.3 (0.0-0.8) K/uL Eos # (Auto) 0.0 (0.0-0.7) K/uL Baso # (Auto) 0.0 (0.0-0.1) K/uL Nucleated RBC % 0.0 /100WBC Nucleated RBCs # 0 K/uL Sodium 139 (136-148) mmol/L Potassium 3.7 (3.5-5.1) mmol/L Chloride 101 (98-107) mmol/L Carbon Dioxide 27.2 (21.0-32.0) mmol/L BUN 16 (7.0-18.0) mg/dL Creatinine 1.1 (0.8-1.3) mg/dL Est Cr Clr Drug Dosing 71.44 mL/min Estimated GFR (MDRD) > 60.0 ml/min Glucose 118 H (74-106) mg/dL Calcium 8.0 L (8.5-10.1) mg/dL Total Bilirubin 0.4 (0.2-1.0) mg/dL Direct Bilirubin 0.10 (0.0-0.5) mg/dL AST 90 H (15-37) IU/L ALT 51 (14-63) IU/L Alkaline Phosphatase 49 (46-116) U/L Troponin I < 0.050 (0.000-0.056) ng/mL B-Natriuretic Peptide 11 (<100) PG/ML Total Protein 7.5 (6.4-8.2) g/dL Albumin 3.1 L (3.4-5.0) g/dL Globulin 4.4 H (2.6-4.0) g/dL Albumin/Globulin Ratio 0.7 L (0.9-1.6) Influenza Type A RNA (NEGATIVE) Influenza Type B RNA (NEGATIVE) SARS-CoV-2 RNA (KOBE) (NEGATIVE) 07/03/20 07/04/20 07/04/20 Range/Units 11:30 06:15 06:15 WBC 5.80 (4.0-11.0) K/uL RBC 4.67 (4.50-5.90) M/uL Hgb 14.6 (13.0-17.0) g/dL Hct 43.2 (38.0-50.0) % MCV 92.5 (80.0-98.0) fL MCH 31.3 (27.0-32.0) pg MCHC 33.8 (31.0-37.0) g/dL RDW Std Deviation 43.9 (28.0-62.0) fl RDW Coeff of Flakita 13 (11.0-15.0) % Plt Count 110 L (150-400) K/uL MPV 11.30 (7.40-12.00) fL Neut % (Auto) 73.9 (48.0-80.0) % Lymph % (Auto) 16.9 (16.0-40.0) % [place] % (Auto) 9.0 (0.0-15.0) % Eos % (Auto) 0.0 (0.0-7.0) % Baso % (Auto) 0.2 (0.0-1.5) % Neut # (Auto) 4.3 (1.4-5.7) K/uL Lymph # (Auto) 1.0 (0.6-2.4) K/uL [place] # (Auto) 0.5 (0.0-0.8) K/uL Eos # (Auto) 0.0 (0.0-0.7) K/uL Baso # (Auto) 0.0 (0.0-0.1) K/uL Nucleated RBC % 0.0 /100WBC Nucleated RBCs # 0 K/uL Sodium 140 (136-148) mmol/L Potassium 3.6 (3.5-5.1) mmol/L Chloride 104 (98-107) mmol/L Carbon Dioxide 27.7 (21.0-32.0) mmol/L BUN 15 (7.0-18.0) mg/dL Creatinine 0.9 (0.8-1.3) mg/dL Est Cr Clr Drug Dosing 87.31 mL/min Estimated GFR (MDRD) > 60.0 ml/min Glucose 151 H (74-106) mg/dL Calcium 7.8 L (8.5-10.1) mg/dL Total Bilirubin 0.3 (0.2-1.0) mg/dL Direct Bilirubin (0.0-0.5) mg/dL AST 83 H (15-37) IU/L ALT 46 (14-63) IU/L Alkaline Phosphatase 47 (46-116) U/L Troponin I (0.000-0.056) ng/mL B-Natriuretic Peptide (<100) PG/ML Total Protein 7.1 (6.4-8.2) g/dL Albumin 2.8 L (3.4-5.0) g/dL Globulin 4.3 H (2.6-4.0) g/dL Albumin/Globulin Ratio 0.7 L (0.9-1.6) Influenza Type A RNA NEGATIVE (NEGATIVE) Influenza Type B RNA NEGATIVE (NEGATIVE) SARS-CoV-2 RNA (KOBE) POSITIVE H (NEGATIVE) Result Diagrams: 07/04/20 06:15 07/04/20 06:15 Sepsis Event Note - Evaluation Sepsis Screening Result: No Definite Risk - Focused Exam Vital Signs: Vital Signs Temp Pulse Resp BP Pulse Ox Pulse Ox 07/04/20 04:07 36.9 C 77 20 116/63 90 L 07/04/20 00:10 35.7 C L 82 19 108/57 L 92 L 07/03/20 21:42 93 L - Problem List & Annotations (1) COVID-19 SNOMED Code(s): 909680180 Code(s): U07.1 - COVID-19 Status: Acute Current Visit: Yes (2) Hypoxia SNOMED Code(s): 925865175 Code(s): R09.02 - HYPOXEMIA Status: Acute Current Visit: Yes - Problem List Review Problem List Initiated/Reviewed/Updated: Yes - My Orders Last 24 Hours: My Active Orders 07/04/20 07:20 Acapella [RT Chest Physiotherapy] [RC] ASDIRECTED RT Incentive Spirometry [RC] ASDIRECTED 07/04/20 07:21 RT Post Treatment Assessment [RC] Click to Edit RT Pre-Treatment Assessment [RC] Click to Edit 07/04/20 08:15 Albuterol/Ipratropium [Combivent Respimat] See Dose Instructions INH Q4H 07/05/20 05:11 CBC WITH AUTO DIFF [HEME] AM - Plan Plan:: Assessment and Plan: 1. Acute hypoxic respiratory failure secondary to COVID-19 pneumonia: - Continue supplemental oxygen prn to maintain O2 sat > 92%, Combivent q4 YADY, dexamethasone 6 mg qd, Remdesivir, incentive spirometer and acapella. Patient on PPI. 2. DVT prophylaxis: - Lovenox 40 mg subcut qd.
[2020-07-04] MEDS: Dexamethasone 4 MG Tab PO SCH (12:11)
[2020-07-04] MEDS: Albuterol/Ipratropium 4 GM Inhalation Spray INH SCH ×3 (14:28→21:58)
[2020-07-04] MEDS: REMDESIVIR 100 MG in Sodium Chloride 0.9% 100 ML IV SCH (14:52)
[2020-07-04] MEDS: Pantoprazole 40 MG Tab.CR PO SCH (14:54)
[2020-07-04] MEDS: Enoxaparin 40 MG/0.4 ML Syringe SUBCUT SCH (15:02)
[2020-07-04] MEDS: Sodium Chloride 0.9% 2.5 ML Syringe FLUSH PRN (16:18)
[2020-07-05] MEDS: Albuterol/Ipratropium 4 GM Inhalation Spray INH SCH ×7 (02:56→21:45)
[2020-07-05 06:19] LABS: BLOOD UREA NITROGEN,BUN 17 mg/dL (7.0-18.0); CARBON DIOXIDE,CO2 27.9 mmol/L (21.0-32.0); CHLORIDE,CL 105 mmol/L (98-107); GLUCOSE RANDOM 159 mg/dL (74-106); POTASSIUM,K 3.6 mmol/L (3.5-5.1); SODIUM,NA 140 mmol/L (136-148)
--- NOTE | 2020-07-05 08:05 | PCM.PN ---
- General Info Date of Service: 07/05/20 Subjective Update: Reports breathing has improved since yesterday. Denies having much of a cough. Tolerating oral diet. No fevers, chills, nausea, vomiting or chest pain overnight. - Patient Data Vitals - Most Recent: Last Vital Signs Temp 36.7 C 07/05/20 04:00 Pulse 89 07/05/20 04:00 Resp 16 07/05/20 04:00 BP 130/76 07/05/20 04:00 Pulse Ox 91 L 07/05/20 04:00 Weight - Most Recent: 208.3 kg I&O - Last 24 Hours: Intake & Output 07/04/20 07/05/20 07/05/20 22:59 06:59 14:59 Intake Total 950 1000 Output Total 650 Balance 300 1000 Lab Results Last 24 Hours: Laboratory Results - last 24 hr 07/05/20 07/05/20 Range/Units 05:43 05:43 WBC 6.52 (4.0-11.0) K/uL RBC 4.45 L (4.50-5.90) M/uL Hgb 13.8 (13.0-17.0) g/dL Hct 41.4 (38.0-50.0) % MCV 93.0 (80.0-98.0) fL MCH 31.0 (27.0-32.0) pg MCHC 33.3 (31.0-37.0) g/dL RDW Std Deviation 45.0 (28.0-62.0) fl RDW Coeff of Flakita 13 (11.0-15.0) % Plt Count 126 L (150-400) K/uL MPV 11.10 (7.40-12.00) fL Neut % (Auto) 78.1 (48.0-80.0) % Lymph % (Auto) 13.7 L (16.0-40.0) % [place] % (Auto) 8.0 (0.0-15.0) % Eos % (Auto) 0.0 (0.0-7.0) % Baso % (Auto) 0.2 (0.0-1.5) % Neut # (Auto) 5.1 (1.4-5.7) K/uL Lymph # (Auto) 0.9 (0.6-2.4) K/uL [place] # (Auto) 0.5 (0.0-0.8) K/uL Eos # (Auto) 0.0 (0.0-0.7) K/uL Baso # (Auto) 0.0 (0.0-0.1) K/uL Nucleated RBC % 0.0 /100WBC Nucleated RBCs # 0 K/uL Sodium 140 (136-148) mmol/L Potassium 3.6 (3.5-5.1) mmol/L Chloride 105 (98-107) mmol/L Carbon Dioxide 27.9 (21.0-32.0) mmol/L BUN 17 (7.0-18.0) mg/dL Creatinine 0.8 (0.8-1.3) mg/dL Est Cr Clr Drug Dosing 98.23 mL/min Estimated GFR (MDRD) > 60.0 ml/min Glucose 159 H (74-106) mg/dL Calcium 7.6 L (8.5-10.1) mg/dL Total Bilirubin 0.3 (0.2-1.0) mg/dL AST 79 H (15-37) IU/L ALT 46 (14-63) IU/L Alkaline Phosphatase 45 L (46-116) U/L Total Protein 6.6 (6.4-8.2) g/dL Albumin 2.6 L (3.4-5.0) g/dL Globulin 4.0 (2.6-4.0) g/dL Albumin/Globulin Ratio 0.7 L (0.9-1.6) Med Orders - Current: Current Medications Albuterol/Ipratropium (Combivent Respimat) 0 gm INH Q4HRRT [facility] Last Admin: 07/05/20 06:16 Dose: 1 puff Documented by: Benzonatate (Tessalon Perles) 100 mg PO TID PRN PRN Reason: Cough Last Admin: 07/04/20 00:08 Dose: 100 mg Documented by: Dexamethasone (Dexamethasone) 6 mg PO Q24H [facility] Last Admin: 07/04/20 12:11 Dose: 6 mg Documented by: Enoxaparin Sodium (Lovenox) 40 mg SUBCUT Q24H [facility] Last Admin: 07/04/20 15:02 Dose: 40 mg Documented by: Remdesivir 100 mg/ Sodium (Chloride) 100 mls @ 100 mls/hr IV Q24H [facility] Stop: 07/07/20 14:59 Last Admin: 07/04/20 14:52 Dose: 100 mls/hr Documented by: Pantoprazole Sodium (Protonix) 40 mg PO DAILY [facility] Last Admin: 07/04/20 14:54 Dose: 40 mg Documented by: Sodium Chloride (Saline Flush) 10 ml FLUSH ASDIRECTED PRN PRN Reason: Keep Vein Open Last Admin: 07/03/20 11:17 Dose: 10 ml Documented by: Sodium Chloride (Saline Flush) 2.5 ml FLUSH ASDIRECTED PRN PRN Reason: Keep Vein Open Last Admin: 07/04/20 16:18 Dose: 2.5 ml Documented by: Discontinued Medications Acetaminophen (Tylenol) 650 mg PO NOW ONE Stop: 07/03/20 11:13 Last Admin: 07/03/20 11:17 Dose: 650 mg Documented by: Albuterol/Ipratropium (Combivent Respimat) 0 gm INH Q4H PRN PRN Reason: Dyspnea Albuterol/Ipratropium (Combivent Respimat) 0 gm INH Q4H [facility] Last Admin: 07/05/20 05:58 Dose: Not Given Documented by: Dexamethasone (Decadron) 6 mg IVPUSH ONETIME ONE Stop: 07/03/20 12:37 Last Admin: 07/03/20 13:34 Dose: 6 mg Documented by: Remdesivir 200 mg/ Sodium (Chloride) 250 mls @ 250 mls/hr IV ONETIME ONE Stop: 07/03/20 13:02 Last Admin: 07/03/20 14:41 Dose: Not Given Documented by: Remdesivir 200 mg/ Sodium (Chloride) 250 mls @ 250 mls/hr IV ONETIME ONE Stop: 07/03/20 14:44 Last Admin: 07/03/20 14:21 Dose: 250 mls/hr Documented by: - Exam General: Alert, Oriented, Cooperative Lungs: Clear to Auscultation, Normal Respiratory Effort Cardiovascular: Regular Rate, Regular Rhythm GI/Abdominal Exam: Normal Bowel Sounds, Soft, Non-Tender, No Distention Extremities: Normal Inspection, No Pedal Edema - Patient Data Lab Results Last 24 hrs: Laboratory Results - last 24 hr 07/05/20 07/05/20 Range/Units 05:43 05:43 WBC 6.52 (4.0-11.0) K/uL RBC 4.45 L (4.50-5.90) M/uL Hgb 13.8 (13.0-17.0) g/dL Hct 41.4 (38.0-50.0) % MCV 93.0 (80.0-98.0) fL MCH 31.0 (27.0-32.0) pg MCHC 33.3 (31.0-37.0) g/dL RDW Std Deviation 45.0 (28.0-62.0) fl RDW Coeff of Flakita 13 (11.0-15.0) % Plt Count 126 L (150-400) K/uL MPV 11.10 (7.40-12.00) fL Neut % (Auto) 78.1 (48.0-80.0) % Lymph % (Auto) 13.7 L (16.0-40.0) % [place] % (Auto) 8.0 (0.0-15.0) % Eos % (Auto) 0.0 (0.0-7.0) % Baso % (Auto) 0.2 (0.0-1.5) % Neut # (Auto) 5.1 (1.4-5.7) K/uL Lymph # (Auto) 0.9 (0.6-2.4) K/uL [place] # (Auto) 0.5 (0.0-0.8) K/uL Eos # (Auto) 0.0 (0.0-0.7) K/uL Baso # (Auto) 0.0 (0.0-0.1) K/uL Nucleated RBC % 0.0 /100WBC Nucleated RBCs # 0 K/uL Sodium 140 (136-148) mmol/L Potassium 3.6 (3.5-5.1) mmol/L Chloride 105 (98-107) mmol/L Carbon Dioxide 27.9 (21.0-32.0) mmol/L BUN 17 (7.0-18.0) mg/dL Creatinine 0.8 (0.8-1.3) mg/dL Est Cr Clr Drug Dosing 98.23 mL/min Estimated GFR (MDRD) > 60.0 ml/min Glucose 159 H (74-106) mg/dL Calcium 7.6 L (8.5-10.1) mg/dL Total Bilirubin 0.3 (0.2-1.0) mg/dL AST 79 H (15-37) IU/L ALT 46 (14-63) IU/L Alkaline Phosphatase 45 L (46-116) U/L Total Protein 6.6 (6.4-8.2) g/dL Albumin 2.6 L (3.4-5.0) g/dL Globulin 4.0 (2.6-4.0) g/dL Albumin/Globulin Ratio 0.7 L (0.9-1.6) Result Diagrams: 07/05/20 05:43 07/05/20 05:43 Sepsis Event Note - Evaluation Sepsis Screening Result: No Definite Risk - Focused Exam Vital Signs: Vital Signs Temp Pulse Resp BP Pulse Ox 07/05/20 04:00 36.7 C 89 16 130/76 91 L 07/05/20 00:00 36.6 C 87 18 129/69 92 L - Problem List & Annotations (1) COVID-19 SNOMED Code(s): 142245731 Code(s): U07.1 - COVID-19 Status: Acute Current Visit: Yes (2) Hypoxia SNOMED Code(s): 681262125 Code(s): R09.02 - HYPOXEMIA Status: Acute Current Visit: Yes - Problem List Review Problem List Initiated/Reviewed/Updated: Yes - My Orders Last 24 Hours: My Active Orders 07/04/20 07:20 Acapella [RT Chest Physiotherapy] [RC] ASDIRECTED RT Incentive Spirometry [RC] ASDIRECTED 07/04/20 07:21 RT Post Treatment Assessment [RC] Click to Edit RT Pre-Treatment Assessment [RC] Click to Edit 07/04/20 14:15 Pantoprazole [ProTONIX] 40 mg PO DAILY 07/04/20 18:00 Albuterol/Ipratropium [Combivent Respimat] 0 gm INH Q4HRRT 07/06/20 05:11 CBC WITH AUTO DIFF [HEME] AM - Plan Plan:: Assessment and Plan: 1. Acute hypoxic respiratory failure secondary to COVID-19 pneumonia: - Will wean oxygen as tolerated. Continue supplemental oxygen prn to maintain O2 sat > 92%, Combivent q4 YADY, dexamethasone 6 mg qd, Remdesivir, incentive sp irometer and acapella. 2. DVT prophylaxis: - Lovenox 40 mg subcut qd. 3. GI prophylaxis: - Pantoprazole 40 mg qd.
[2020-07-05] MEDS: Pantoprazole 40 MG Tab.CR PO SCH (08:39)
[2020-07-05] MEDS: Dexamethasone 4 MG Tab PO SCH (12:52)
[2020-07-05] MEDS: REMDESIVIR 100 MG in Sodium Chloride 0.9% 100 ML IV SCH (14:49)
[2020-07-05] MEDS: Benzonatate 100 MG Cap PO PRN (14:55)
[2020-07-05] MEDS: Enoxaparin 40 MG/0.4 ML Syringe SUBCUT SCH (15:00)
[2020-07-06] MEDS: Albuterol/Ipratropium 4 GM Inhalation Spray INH SCH ×6 (02:52→21:31)
[2020-07-06] MEDS: Benzonatate 100 MG Cap PO PRN ×2 (04:39→11:40)
[2020-07-06 06:51] LABS: BLOOD UREA NITROGEN,BUN 13 mg/dL (7.0-18.0); CARBON DIOXIDE,CO2 28.4 mmol/L (21.0-32.0); CHLORIDE,CL 104 mmol/L (98-107); GLUCOSE RANDOM 156 mg/dL (74-106); POTASSIUM,K 3.7 mmol/L (3.5-5.1); SODIUM,NA 141 mmol/L (136-148)
[2020-07-06] MEDS: Pantoprazole 40 MG Tab.CR PO SCH (08:48)
[2020-07-06] MEDS: Codeine/guaiFENesin 10-100 MG/5 ML Syrup 5 ML Cup PO PRN ×2 (08:48→15:06)
[2020-07-06] MEDS: Dexamethasone 4 MG Tab PO SCH (11:40)
--- NOTE | 2020-07-06 13:04 | PCM.PN ---
- General Info Date of Service: 07/06/20 Subjective Update: Reports breathing is same as yesterday and was coughing a lot overnight. Tolerating oral diet. Per nursing, patient required increase in oxygen to 5-6 L this morning and had oxygen saturation of 85-86%. - Patient Data Vitals - Most Recent: Last Vital Signs Temp 36.3 C 07/06/20 11:37 Pulse 96 07/06/20 11:37 Resp 16 07/06/20 11:37 BP 123/78 07/06/20 11:37 Pulse Ox 90 L 07/06/20 11:37 Weight - Most Recent: 92.578 kg I&O - Last 24 Hours: Intake & Output 07/05/20 07/06/20 07/06/20 22:59 06:59 14:59 Intake Total 1350 800 Output Total 600 750 Balance 750 50 Lab Results Last 24 Hours: Laboratory Results - last 24 hr 07/06/20 07/06/20 Range/Units 06:22 06:22 WBC 7.23 (4.0-11.0) K/uL RBC 4.74 (4.50-5.90) M/uL Hgb 14.7 (13.0-17.0) g/dL Hct 44.0 (38.0-50.0) % MCV 92.8 (80.0-98.0) fL MCH 31.0 (27.0-32.0) pg MCHC 33.4 (31.0-37.0) g/dL RDW Std Deviation 44.0 (28.0-62.0) fl RDW Coeff of Flakita 13 (11.0-15.0) % Plt Count 165 (150-400) K/uL MPV 11.40 (7.40-12.00) fL Neut % (Auto) 74.4 (48.0-80.0) % Lymph % (Auto) 16.6 (16.0-40.0) % [place] % (Auto) 8.6 (0.0-15.0) % Eos % (Auto) 0.0 (0.0-7.0) % Baso % (Auto) 0.4 (0.0-1.5) % Neut # (Auto) 5.4 (1.4-5.7) K/uL Lymph # (Auto) 1.2 (0.6-2.4) K/uL [place] # (Auto) 0.6 (0.0-0.8) K/uL Eos # (Auto) 0.0 (0.0-0.7) K/uL Baso # (Auto) 0.0 (0.0-0.1) K/uL Nucleated RBC % 0.0 /100WBC Nucleated RBCs # 0 K/uL Sodium 141 (136-148) mmol/L Potassium 3.7 (3.5-5.1) mmol/L Chloride 104 (98-107) mmol/L Carbon Dioxide 28.4 (21.0-32.0) mmol/L BUN 13 (7.0-18.0) mg/dL Creatinine 0.9 (0.8-1.3) mg/dL Est Cr Clr Drug Dosing 87.31 mL/min Estimated GFR (MDRD) > 60.0 ml/min Glucose 156 H (74-106) mg/dL Calcium 7.5 L (8.5-10.1) mg/dL Total Bilirubin 0.5 (0.2-1.0) mg/dL AST 89 H (15-37) IU/L ALT 62 (14-63) IU/L Alkaline Phosphatase 55 (46-116) U/L Total Protein 7.0 (6.4-8.2) g/dL Albumin 2.8 L (3.4-5.0) g/dL Globulin 4.2 H (2.6-4.0) g/dL Albumin/Globulin Ratio 0.7 L (0.9-1.6) Med Orders - Current: Current Medications Albuterol/Ipratropium (Combivent Respimat) 0 gm INH Q4HRRT [facility] Last Admin: 07/06/20 09:30 Dose: 1 puff Documented by: Benzonatate (Tessalon Perles) 200 mg PO TID PRN PRN Reason: Cough Last Admin: 07/06/20 11:40 Dose: 200 mg Documented by: Dexamethasone (Dexamethasone) 6 mg PO Q24H [facility] Last Admin: 07/06/20 11:40 Dose: 6 mg Documented by: Enoxaparin Sodium (Lovenox) 40 mg SUBCUT Q24H [facility] Last Admin: 07/05/20 15:00 Dose: 40 mg Documented by: Guaifenesin/Codeine Phosphate (Robitussin Ac) 5 ml PO Q6H PRN PRN Reason: Cough Last Admin: 07/06/20 08:48 Dose: 5 ml Documented by: Remdesivir 100 mg/ Sodium (Chloride) 100 mls @ 100 mls/hr IV Q24H [facility] Stop: 07/07/20 14:59 Last Admin: 07/05/20 14:49 Dose: 100 mls/hr Documented by: Pantoprazole Sodium (Protonix) 40 mg PO DAILY [facility] Last Admin: 07/06/20 08:48 Dose: 40 mg Documented by: Sodium Chloride (Saline Flush) 10 ml FLUSH ASDIRECTED PRN PRN Reason: Keep Vein Open Last Admin: 07/03/20 11:17 Dose: 10 ml Documented by: Sodium Chloride (Saline Flush) 2.5 ml FLUSH ASDIRECTED PRN PRN Reason: Keep Vein Open Last Admin: 07/04/20 16:18 Dose: 2.5 ml Documented by: Discontinued Medications Acetaminophen (Tylenol) 650 mg PO NOW ONE Stop: 07/03/20 11:13 Last Admin: 07/03/20 11:17 Dose: 650 mg Documented by: Albuterol/Ipratropium (Combivent Respimat) 0 gm INH Q4H PRN PRN Reason: Dyspnea Albuterol/Ipratropium (Combivent Respimat) 0 gm INH Q4H [facility] Last Admin: 07/05/20 05:58 Dose: Not Given Documented by: Benzonatate (Tessalon Perles) 100 mg PO TID PRN PRN Reason: Cough Last Admin: 07/04/20 00:08 Dose: 100 mg Documented by: Dexamethasone (Decadron) 6 mg IVPUSH ONETIME ONE Stop: 07/03/20 12:37 Last Admin: 07/03/20 13:34 Dose: 6 mg Documented by: Remdesivir 200 mg/ Sodium (Chloride) 250 mls @ 250 mls/hr IV ONETIME ONE Stop: 07/03/20 13:02 Last Admin: 07/03/20 14:41 Dose: Not Given Documented by: Remdesivir 200 mg/ Sodium (Chloride) 250 mls @ 250 mls/hr IV ONETIME ONE Stop: 07/03/20 14:44 Last Admin: 07/03/20 14:21 Dose: 250 mls/hr Documented by: - Exam General: Alert, Oriented, Cooperative, No Acute Distress Lungs: Clear to Auscultation, Normal Respiratory Effort Cardiovascular: Regular Rate, Regular Rhythm GI/Abdominal Exam: Normal Bowel Sounds, Soft, Non-Tender, No Distention Extremities: Normal Inspection, No Pedal Edema - Patient Data Lab Results Last 24 hrs: Laboratory Results - last 24 hr 07/06/20 07/06/20 Range/Units 06:22 06:22 WBC 7.23 (4.0-11.0) K/uL RBC 4.74 (4.50-5.90) M/uL Hgb 14.7 (13.0-17.0) g/dL Hct 44.0 (38.0-50.0) % MCV 92.8 (80.0-98.0) fL MCH 31.0 (27.0-32.0) pg MCHC 33.4 (31.0-37.0) g/dL RDW Std Deviation 44.0 (28.0-62.0) fl RDW Coeff of [place] 13 (11.0-15.0) % Plt Count 165 (150-400) K/uL MPV 11.40 (7.40-12.00) fL Neut % (Auto) 74.4 (48.0-80.0) % Lymph % (Auto) 16.6 (16.0-40.0) % [place] % (Auto) 8.6 (0.0-15.0) % Eos % (Auto) 0.0 (0.0-7.0) % Baso % (Auto) 0.4 (0.0-1.5) % Neut # (Auto) 5.4 (1.4-5.7) K/uL Lymph # (Auto) 1.2 (0.6-2.4) K/uL [place] # (Auto) 0.6 (0.0-0.8) K/uL Eos # (Auto) 0.0 (0.0-0.7) K/uL Baso # (Auto) 0.0 (0.0-0.1) K/uL Nucleated RBC % 0.0 /100WBC Nucleated RBCs # 0 K/uL Sodium 141 (136-148) mmol/L Potassium 3.7 (3.5-5.1) mmol/L Chloride 104 (98-107) mmol/L Carbon Dioxide 28.4 (21.0-32.0) mmol/L BUN 13 (7.0-18.0) mg/dL Creatinine 0.9 (0.8-1.3) mg/dL Est Cr Clr Drug Dosing 87.31 mL/min Estimated GFR (MDRD) > 60.0 ml/min Glucose 156 H (74-106) mg/dL Calcium 7.5 L (8.5-10.1) mg/dL Total Bilirubin 0.5 (0.2-1.0) mg/dL AST 89 H (15-37) IU/L ALT 62 (14-63) IU/L Alkaline Phosphatase 55 (46-116) U/L Total Protein 7.0 (6.4-8.2) g/dL Albumin 2.8 L (3.4-5.0) g/dL Globulin 4.2 H (2.6-4.0) g/dL Albumin/Globulin Ratio 0.7 L (0.9-1.6) Result Diagrams: 07/06/20 06:22 07/06/20 06:22 Sepsis Event Note - Evaluation Sepsis Screening Result: No Definite Risk - Focused Exam Vital Signs: Vital Signs Temp Pulse Resp BP Pulse Ox 07/06/20 11:37 36.3 C 96 16 123/78 90 L 07/06/20 08:50 36.3 C 86 16 128/80 87 L 07/06/20 04:00 36.3 C 86 16 133/75 90 L - Problem List & Annotations (1) COVID-19 SNOMED Code(s): 523941848 Code(s): U07.1 - COVID-19 Status: Acute Current Visit: Yes (2) Hypoxia SNOMED Code(s): 771550312 Code(s): R09.02 - HYPOXEMIA Status: Acute Current Visit: Yes - Problem List Review Problem List Initiated/Reviewed/Updated: Yes - My Orders Last 24 Hours: My Active Orders 07/06/20 08:00 Codeine/guaiFENesin [Robitussin AC] 5 ml PO Q6H PRN 07/06/20 09:14 Communication Order [RC] ROUTINE RT Oxygen High Humidity High Flow [RESPCARE] Urgent 07/06/20 11:45 Ang Chest [CT] Urgent - Plan Plan:: Assessment and Plan: 1. Acute hypoxic respiratory failure secondary to COVID-19 pneumonia: - Will start heated high flow oxygen. Continue Combivent q4 YADY, dexamethasone 6 mg qd, Remdesivir, incentive spirometer and acapella. 2. DVT prophylaxis: - Lovenox 40 mg subcut qd. 3. GI prophylaxis: - Pantoprazole 40 mg qd.
[2020-07-06] MEDS: REMDESIVIR 100 MG in Sodium Chloride 0.9% 100 ML IV SCH (15:05)
[2020-07-06] MEDS: Enoxaparin 40 MG/0.4 ML Syringe SUBCUT SCH (15:15)
--- NOTE | 2020-07-06 15:34 | CT ---
INDICATION: Hypoxia TECHNIQUE: CT chest pulmonary angiogram acquired with IV contrast. 100 cc Isovue 370 COMPARISON: None FINDINGS: Cardiovascular structures: Occluded limited study due to suboptimal opacification the pulmonary arteries. No obvious pulmonary emboli involving the main pulmonary arteries. Heart size is normal. No sign of aneurysm or dissection in the thoracic aorta. Mediastinum and kadeem: Sub centimeter mediastinal adenopathy. Lungs: Extensive diffuse bilateral areas of ground-glass appearance. COVID pneumonia should be considered. Pleura and pericardium: No effusions. Chest wall and axilla: No mass or adenopathy. Bones: No significant findings. Upper abdomen: Hepatic steatosis. Thickening of the distal esophagus. IMPRESSION: Nuclear study due to suboptimal opacification of pulmonary arteries. No obvious pulmonary emboli in the main pulmonary arteries. Extensive diffuse some bilateral areas of ground-glass appearance. COVID pneumonia should be considered. Hepatic steatosis. Please note that all CT scans at this facility use dose modulation, iterative reconstruction, and/or weight-based dosing when appropriate to reduce radiation dose to as low as reasonably achievable. Dictated by Ronal Gamez MD @ Jul 06 2020 3:33PM Signed by Dr. Ronal Gamez @ Jul 06 2020 3:33PM
[2020-07-06] MEDS ORDERED: Iopamidol 755 MG/ML 500 ML Multipack Bottle IVPUSH STA (16:00)
[2020-07-06] MEDS ORDERED: Iodixanol 652 MG/ML 100 ML Bottle IVPUSH ONE (16:04)
[2020-07-06] MEDS: Sodium Chloride 0.9% 10 ML Syringe FLUSH PRN (21:31)
[2020-07-07] MEDS: Albuterol/Ipratropium 4 GM Inhalation Spray INH SCH ×6 (02:21→21:26)
[2020-07-07 07:15] LABS: BLOOD UREA NITROGEN,BUN 12 mg/dL (7.0-18.0); CARBON DIOXIDE,CO2 28.6 mmol/L (21.0-32.0); CHLORIDE,CL 107 mmol/L (98-107); GLUCOSE RANDOM 169 mg/dL (74-106); POTASSIUM,K 3.7 mmol/L (3.5-5.1); SODIUM,NA 144 mmol/L (136-148)
--- NOTE | 2020-07-07 08:56 | PCM.PN ---
<Joey Nguyen M - Last Filed: 07/07/20 11:31> - General Info Date of Service: 07/07/20 Subjective Update: Reports breathing feels the same as yesterday. Has cough in the mornings but better throughout the day. Tolerating oral diet. No complaints overnight. - Patient Data Vitals - Most Recent: Last Vital Signs Temp 35.7 C L 07/07/20 04:40 Pulse 88 07/07/20 04:40 Resp 16 07/07/20 04:40 BP 123/78 07/07/20 04:40 Pulse Ox 92 L 07/07/20 04:43 Weight - Most Recent: 92.578 kg I&O - Last 24 Hours: Intake & Output 07/06/20 07/07/20 07/07/20 22:59 06:59 14:59 Intake Total 1380 800 Output Total 600 1150 Balance 780 -350 Lab Results Last 24 Hours: Laboratory Results - last 24 hr 07/07/20 07/07/20 Range/Units 06:15 06:15 WBC 7.58 (4.0-11.0) K/uL RBC 4.41 L (4.50-5.90) M/uL Hgb 13.7 (13.0-17.0) g/dL Hct 41.0 (38.0-50.0) % MCV 93.0 (80.0-98.0) fL MCH 31.1 (27.0-32.0) pg MCHC 33.4 (31.0-37.0) g/dL RDW Std Deviation 44.3 (28.0-62.0) fl RDW Coeff of Flakita 13 (11.0-15.0) % Plt Count 175 (150-400) K/uL MPV 11.90 (7.40-12.00) fL Neut % (Auto) 74.6 (48.0-80.0) % Lymph % (Auto) 16.6 (16.0-40.0) % Ralls % (Auto) 8.4 (0.0-15.0) % Eos % (Auto) 0.0 (0.0-7.0) % Baso % (Auto) 0.4 (0.0-1.5) % Neut # (Auto) 5.7 (1.4-5.7) K/uL Lymph # (Auto) 1.3 (0.6-2.4) K/uL Ralls # (Auto) 0.6 (0.0-0.8) K/uL Eos # (Auto) 0.0 (0.0-0.7) K/uL Baso # (Auto) 0.0 (0.0-0.1) K/uL Nucleated RBC % 0.0 /100WBC Nucleated RBCs # 0 K/uL Sodium 144 (136-148) mmol/L Potassium 3.7 (3.5-5.1) mmol/L Chloride 107 (98-107) mmol/L Carbon Dioxide 28.6 (21.0-32.0) mmol/L BUN 12 (7.0-18.0) mg/dL Creatinine 0.9 (0.8-1.3) mg/dL Est Cr Clr Drug Dosing 87.31 mL/min Estimated GFR (MDRD) > 60.0 ml/min Glucose 169 H (74-106) mg/dL Calcium 7.6 L (8.5-10.1) mg/dL Total Bilirubin 0.5 (0.2-1.0) mg/dL AST 114 H (15-37) IU/L ALT 108 H (14-63) IU/L Alkaline Phosphatase 54 (46-116) U/L Total Protein 6.4 (6.4-8.2) g/dL Albumin 2.6 L (3.4-5.0) g/dL Globulin 3.8 (2.6-4.0) g/dL Albumin/Globulin Ratio 0.7 L (0.9-1.6) Med Orders - Current: Current Medications Albuterol/Ipratropium (Combivent Respimat) 0 gm INH Q4HRRT [facility] Last Admin: 07/07/20 05:45 Dose: 1 puff Documented by: Benzonatate (Tessalon Perles) 200 mg PO TID PRN PRN Reason: Cough Last Admin: 07/06/20 11:40 Dose: 200 mg Documented by: Dexamethasone (Dexamethasone) 6 mg PO Q24H [facility] Last Admin: 07/06/20 11:40 Dose: 6 mg Documented by: Enoxaparin Sodium (Lovenox) 40 mg SUBCUT Q24H [facility] Last Admin: 07/06/20 15:15 Dose: 40 mg Documented by: Guaifenesin/Codeine Phosphate (Robitussin Ac) 5 ml PO Q6H PRN PRN Reason: Cough Last Admin: 07/06/20 15:06 Dose: 5 ml Documented by: Remdesivir 100 mg/ Sodium (Chloride) 100 mls @ 100 mls/hr IV Q24H [facility] Stop: 07/07/20 14:59 Last Admin: 07/06/20 15:05 Dose: 100 mls/hr Documented by: Pantoprazole Sodium (Protonix) 40 mg PO DAILY [facility] Last Admin: 07/06/20 08:48 Dose: 40 mg Documented by: Sodium Chloride (Saline Flush) 10 ml FLUSH ASDIRECTED PRN PRN Reason: Keep Vein Open Last Admin: 07/06/20 21:31 Dose: 10 ml Documented by: Sodium Chloride (Saline Flush) 2.5 ml FLUSH ASDIRECTED PRN PRN Reason: Keep Vein Open Last Admin: 07/04/20 16:18 Dose: 2.5 ml Documented by: Discontinued Medications Acetaminophen (Tylenol) 650 mg PO NOW ONE Stop: 07/03/20 11:13 Last Admin: 07/03/20 11:17 Dose: 650 mg Documented by: Albuterol/Ipratropium (Combivent Respimat) 0 gm INH Q4H PRN PRN Reason: Dyspnea Albuterol/Ipratropium (Combivent Respimat) 0 gm INH Q4H [facility] Last Admin: 07/05/20 05:58 Dose: Not Given Documented by: Benzonatate (Tessalon Perles) 100 mg PO TID PRN PRN Reason: Cough Last Admin: 07/04/20 00:08 Dose: 100 mg Documented by: Dexamethasone (Decadron) 6 mg IVPUSH ONETIME ONE Stop: 07/03/20 12:37 Last Admin: 07/03/20 13:34 Dose: 6 mg Documented by: Remdesivir 200 mg/ Sodium (Chloride) 250 mls @ 250 mls/hr IV ONETIME ONE Stop: 07/03/20 13:02 Last Admin: 07/03/20 14:41 Dose: Not Given Documented by: Remdesivir 200 mg/ Sodium (Chloride) 250 mls @ 250 mls/hr IV ONETIME ONE Stop: 07/03/20 14:44 Last Admin: 07/03/20 14:21 Dose: 250 mls/hr Documented by: Iodixanol (Visipaque 320) 100 ml IVPUSH ONETIME ONE Stop: 07/06/20 16:05 Last Admin: 07/06/20 16:05 Dose: 100 ml Documented by: Iopamidol (Isovue Multipack-370 (76%)) 100 ml IVPUSH ONETIME STA Stop: 07/06/20 16:01 Last Admin: 07/06/20 16:01 Dose: 100 ml Documented by: - Exam General: Alert, Oriented, Cooperative, No Acute Distress Lungs: Clear to Auscultation, Normal Respiratory Effort Cardiovascular: Regular Rate, Regular Rhythm GI/Abdominal Exam: Normal Bowel Sounds, Soft, Non-Tender, No Distention Extremities: Normal Inspection, No Pedal Edema - Patient Data Lab Results Last 24 hrs: Laboratory Results - last 24 hr 07/07/20 07/07/20 Range/Units 06:15 06:15 WBC 7.58 (4.0-11.0) K/uL RBC 4.41 L (4.50-5.90) M/uL Hgb 13.7 (13.0-17.0) g/dL Hct 41.0 (38.0-50.0) % MCV 93.0 (80.0-98.0) fL MCH 31.1 (27.0-32.0) pg MCHC 33.4 (31.0-37.0) g/dL RDW Std Deviation 44.3 (28.0-62.0) fl RDW Coeff of Flakita 13 (11.0-15.0) % Plt Count 175 (150-400) K/uL MPV 11.90 (7.40-12.00) fL Neut % (Auto) 74.6 (48.0-80.0) % Lymph % (Auto) 16.6 (16.0-40.0) % Ralls % (Auto) 8.4 (0.0-15.0) % Eos % (Auto) 0.0 (0.0-7.0) % Baso % (Auto) 0.4 (0.0-1.5) % Neut # (Auto) 5.7 (1.4-5.7) K/uL Lymph # (Auto) 1.3 (0.6-2.4) K/uL Ralls # (Auto) 0.6 (0.0-0.8) K/uL Eos # (Auto) 0.0 (0.0-0.7) K/uL Baso # (Auto) 0.0 (0.0-0.1) K/uL Nucleated RBC % 0.0 /100WBC Nucleated RBCs # 0 K/uL Sodium 144 (136-148) mmol/L Potassium 3.7 (3.5-5.1) mmol/L Chloride 107 (98-107) mmol/L Carbon Dioxide 28.6 (21.0-32.0) mmol/L BUN 12 (7.0-18.0) mg/dL Creatinine 0.9 (0.8-1.3) mg/dL Est Cr Clr Drug Dosing 87.31 mL/min Estimated GFR (MDRD) > 60.0 ml/min Glucose 169 H (74-106) mg/dL Calcium 7.6 L (8.5-10.1) mg/dL Total Bilirubin 0.5 (0.2-1.0) mg/dL AST 114 H (15-37) IU/L ALT 108 H (14-63) IU/L Alkaline Phosphatase 54 (46-116) U/L Total Protein 6.4 (6.4-8.2) g/dL Albumin 2.6 L (3.4-5.0) g/dL Globulin 3.8 (2.6-4.0) g/dL Albumin/Globulin Ratio 0.7 L (0.9-1.6) Result Diagrams: 07/07/20 06:15 07/07/20 06:15 Sepsis Event Note - Evaluation Sepsis Screening Result: No Definite Risk - Focused Exam Vital Signs: Vital Signs Temp Pulse Resp BP Pulse Ox Pulse Ox 07/07/20 04:43 92 L 07/07/20 04:40 35.7 C L 88 16 123/78 95 07/07/20 00:45 16 95 07/07/20 00:42 36.1 C 80 16 114/65 97 07/06/20 22:10 92 L 07/06/20 21:27 37.2 C 94 16 119/80 93 L - Problem List & Annotations (1) COVID-19 SNOMED Code(s): 280939702 Code(s): U07.1 - COVID-19 Status: Acute Current Visit: Yes (2) Hypoxia SNOMED Code(s): 193254364 Code(s): R09.02 - HYPOXEMIA Status: Acute Current Visit: Yes - Problem List Review Problem List Initiated/Reviewed/Updated: Yes - My Orders Last 24 Hours: My Active Orders 07/06/20 08:00 Codeine/guaiFENesin [Robitussin AC] 5 ml PO Q6H PRN 07/06/20 09:14 Communication Order [RC] ROUTINE RT Oxygen High Humidity High Flow [RESPCARE] Urgent - Plan Plan:: Assessment and Plan: 1. Acute hypoxic respiratory failure secondary to COVID-19 pneumonia: - Continue heated high flow oxygen, currently on 45 L and 50% FiO2. Continue Combivent q4 [facility], dexamethasone 6 mg qd, Remdesivir, incentive spirometer and acapella. 2. DVT prophylaxis: - Lovenox 40 mg subcut qd. 3. GI prophylaxis: - Pantoprazole 40 mg qd. <Jagjit Taylor - Last Filed: 07/08/20 12:01> - General Info Subjective Update: I have seen and evaluated the patient and agree with the residents note unless specified in my note - Patient Data Vitals - Most Recent: Last Vital Signs Temp 36.5 C 07/08/20 09:00 Pulse 67 07/08/20 09:00 Resp 16 07/08/20 09:00 BP 130/70 07/08/20 09:00 Pulse Ox 93 L 07/08/20 09:00 I&O - Last 24 Hours: Intake & Output 07/07/20 07/08/20 07/08/20 22:59 06:59 14:59 Intake Total 1250 1100 Output Total 350 1350 Balance 900 -250 Lab Results Last 24 Hours: Laboratory Results - last 24 hr 07/08/20 07/08/20 07/08/20 Range/Units 05:55 05:55 11:29 WBC 9.28 (4.0-11.0) K/uL RBC 4.55 (4.50-5.90) M/uL Hgb 14.0 (13.0-17.0) g/dL Hct 41.8 (38.0-50.0) % MCV 91.9 (80.0-98.0) fL MCH 30.8 (27.0-32.0) pg MCHC 33.5 (31.0-37.0) g/dL RDW Std Deviation 43.0 (28.0-62.0) fl RDW Coeff of Flakita 13 (11.0-15.0) % Plt Count 199 (150-400) K/uL MPV 11.10 (7.40-12.00) fL Neut % (Auto) 78.4 (48.0-80.0) % Lymph % (Auto) 14.4 L (16.0-40.0) % Ralls % (Auto) 7.1 (0.0-15.0) % Eos % (Auto) 0.0 (0.0-7.0) % Baso % (Auto) 0.1 (0.0-1.5) % Neut # (Auto) 7.3 H (1.4-5.7) K/uL Lymph # (Auto) 1.3 (0.6-2.4) K/uL Ralls # (Auto) 0.7 (0.0-0.8) K/uL Eos # (Auto) 0.0 (0.0-0.7) K/uL Baso # (Auto) 0.0 (0.0-0.1) K/uL Nucleated RBC % 0.0 /100WBC Nucleated RBCs # 0 K/uL ABG pH 7.559 H (7.35-7.45) ABG pCO2 29 L (35-45) mmHG ABG pO2 105 H (75-100) mmHG ABG HCO3 26 (22-26) mEq/L ABG Total CO2 22.1 ABG Base Excess 4.4 H (-2.0-2.0) Sodium 142 (136-148) mmol/L Potassium 3.7 (3.5-5.1) mmol/L Chloride 107 (98-107) mmol/L Carbon Dioxide 25.7 (21.0-32.0) mmol/L BUN 10 (7.0-18.0) mg/dL Creatinine 0.8 (0.8-1.3) mg/dL Est Cr Clr Drug Dosing 98.23 mL/min Estimated GFR (MDRD) > 60.0 ml/min Glucose 140 H (74-106) mg/dL Calcium 7.8 L (8.5-10.1) mg/dL Magnesium 2.3 (1.8-2.4) mg/dL Total Bilirubin 0.5 (0.2-1.0) mg/dL AST 67 H (15-37) IU/L ALT 84 H (14-63) IU/L Alkaline Phosphatase 57 (46-116) U/L Total Protein 6.5 (6.4-8.2) g/dL Albumin 2.6 L (3.4-5.0) g/dL Globulin 3.9 (2.6-4.0) g/dL Albumin/Globulin Ratio 0.7 L (0.9-1.6) Med Orders - Current: Current Medications Albuterol/Ipratropium (Combivent Respimat) 0 gm INH Q4HRRT [facility] Last Admin: 07/08/20 09:22 Dose: 1 puff Documented by: Benzonatate (Tessalon Perles) 200 mg PO TID PRN PRN Reason: Cough Last Admin: 07/08/20 09:22 Dose: 200 mg Documented by: Dexamethasone (Dexamethasone) 6 mg PO Q24H [facility] Last Admin: 07/07/20 12:35 Dose: 6 mg Documented by: Enoxaparin Sodium (Lovenox) 40 mg SUBCUT Q24H [facility] Last Admin: 07/07/20 16:00 Dose: 40 mg Documented by: Guaifenesin/Codeine Phosphate (Robitussin Ac) 5 ml PO Q6H PRN PRN Reason: Cough Last Admin: 07/08/20 04:09 Dose: 5 ml Documented by: Levofloxacin/Dextrose 750 mg/ (Premix) 150 mls @ 100 mls/hr IV Q24H [facility] Last Admin: 07/08/20 11:41 Dose: 100 mls/hr Documented by: Pantoprazole Sodium (Protonix) 40 mg PO DAILY [facility] Last Admin: 07/08/20 09:22 Dose: 40 mg Documented by: Sodium Chloride (Saline Flush) 10 ml FLUSH ASDIRECTED PRN PRN Reason: Keep Vein Open Last Admin: 07/06/20 21:31 Dose: 10 ml Documented by: Sodium Chloride (Saline Flush) 2.5 ml FLUSH ASDIRECTED PRN PRN Reason: Keep Vein Open Last Admin: 07/04/20 16:18 Dose: 2.5 ml Documented by: Discontinued Medications Acetaminophen (Tylenol) 650 mg PO NOW ONE Stop: 07/03/20 11:13 Last Admin: 07/03/20 11:17 Dose: 650 mg Documented by: Albuterol/Ipratropium (Combivent Respimat) 0 gm INH Q4H PRN PRN Reason: Dyspnea Albuterol/Ipratropium (Combivent Respimat) 0 gm INH Q4H [facility] Last Admin: 07/05/20 05:58 Dose: Not Given Documented by: Benzonatate (Tessalon Perles) 100 mg PO TID PRN PRN Reason: Cough Last Admin: 07/04/20 00:08 Dose: 100 mg Documented by: Dexamethasone (Decadron) 6 mg IVPUSH ONETIME ONE Stop: 07/03/20 12:37 Last Admin: 07/03/20 13:34 Dose: 6 mg Documented by: Furosemide (Lasix) 20 mg IVPUSH ONETIME ONE Stop: 07/08/20 11:11 Last Admin: 07/08/20 11:39 Dose: 20 mg Documented by: Remdesivir 200 mg/ Sodium (Chloride) 250 mls @ 250 mls/hr IV ONETIME ONE Stop: 07/03/20 13:02 Last Admin: 07/03/20 14:41 Dose: Not Given Documented by: Remdesivir 200 mg/ Sodium (Chloride) 250 mls @ 250 mls/hr IV ONETIME ONE Stop: 07/03/20 14:44 Last Admin: 07/03/20 14:21 Dose: 250 mls/hr Documented by: Remdesivir 100 mg/ Sodium (Chloride) 100 mls @ 100 mls/hr IV Q24H [facility] Stop: 07/07/20 14:59 Last Admin: 07/07/20 14:10 Dose: 100 mls/hr Documented by: Iodixanol (Visipaque 320) 100 ml IVPUSH ONETIME ONE Stop: 07/06/20 16:05 Last Admin: 07/06/20 16:05 Dose: 100 ml Documented by: Iopamidol (Isovue Multipack-370 (76%)) 100 ml IVPUSH ONETIME STA Stop: 07/06/20 16:01 Last Admin: 07/06/20 16:01 Dose: 100 ml Documented by: - Patient Data Lab Results Last 24 hrs: Laboratory Results - last 24 hr 07/08/20 07/08/20 07/08/20 Range/Units 05:55 05:55 11:29 WBC 9.28 (4.0-11.0) K/uL RBC 4.55 (4.50-5.90) M/uL Hgb 14.0 (13.0-17.0) g/dL Hct 41.8 (38.0-50.0) % MCV 91.9 (80.0-98.0) fL MCH 30.8 (27.0-32.0) pg MCHC 33.5 (31.0-37.0) g/dL RDW Std Deviation 43.0 (28.0-62.0) fl RDW Coeff of Flakita 13 (11.0-15.0) % Plt Count 199 (150-400) K/uL MPV 11.10 (7.40-12.00) fL Neut % (Auto) 78.4 (48.0-80.0) % Lymph % (Auto) 14.4 L (16.0-40.0) % Ralls % (Auto) 7.1 (0.0-15.0) % Eos % (Auto) 0.0 (0.0-7.0) % Baso % (Auto) 0.1 (0.0-1.5) % Neut # (Auto) 7.3 H (1.4-5.7) K/uL Lymph # (Auto) 1.3 (0.6-2.4) K/uL Ralls # (Auto) 0.7 (0.0-0.8) K/uL Eos # (Auto) 0.0 (0.0-0.7) K/uL Baso # (Auto) 0.0 (0.0-0.1) K/uL Nucleated RBC % 0.0 /100WBC Nucleated RBCs # 0 K/uL ABG pH 7.559 H (7.35-7.45) ABG pCO2 29 L (35-45) mmHG ABG pO2 105 H (75-100) mmHG ABG HCO3 26 (22-26) mEq/L ABG Total CO2 22.1 ABG Base Excess 4.4 H (-2.0-2.0) Sodium 142 (136-148) mmol/L Potassium 3.7 (3.5-5.1) mmol/L Chloride 107 (98-107) mmol/L Carbon Dioxide 25.7 (21.0-32.0) mmol/L BUN 10 (7.0-18.0) mg/dL Creatinine 0.8 (0.8-1.3) mg/dL Est Cr Clr Drug Dosing 98.23 mL/min Estimated GFR (MDRD) > 60.0 ml/min Glucose 140 H (74-106) mg/dL Calcium 7.8 L (8.5-10.1) mg/dL Magnesium 2.3 (1.8-2.4) mg/dL Total Bilirubin 0.5 (0.2-1.0) mg/dL AST 67 H (15-37) IU/L ALT 84 H (14-63) IU/L Alkaline Phosphatase 57 (46-116) U/L Total Protein 6.5 (6.4-8.2) g/dL Albumin 2.6 L (3.4-5.0) g/dL Globulin 3.9 (2.6-4.0) g/dL Albumin/Globulin Ratio 0.7 L (0.9-1.6) Result Diagrams: 07/08/20 05:55 07/08/20 05:55 Sepsis Event Note - Focused Exam Vital Signs: Vital Signs Temp Pulse Resp BP Pulse Ox Pulse Ox 07/08/20 09:00 36.5 C 67 16 130/70 93 L 07/08/20 07:02 95 07/08/20 06:50 91 L 07/08/20 06:33 88 L 07/08/20 04:09 36.2 C 88 17 137/90 91 L 07/08/20 02:59 88 L 07/08/20 00:22 35.7 C L 73 16 128/82 93 L
[2020-07-07] MEDS: Pantoprazole 40 MG Tab.CR PO SCH (09:09)
[2020-07-07] MEDS: Benzonatate 100 MG Cap PO PRN ×2 (10:33→21:25)
[2020-07-07] MEDS: Codeine/guaiFENesin 10-100 MG/5 ML Syrup 5 ML Cup PO PRN ×2 (10:34→21:25)
[2020-07-07] MEDS: Dexamethasone 4 MG Tab PO SCH (12:35)
[2020-07-07] MEDS: REMDESIVIR 100 MG in Sodium Chloride 0.9% 100 ML IV SCH (14:10)
[2020-07-07] MEDS: Enoxaparin 40 MG/0.4 ML Syringe SUBCUT SCH (16:00)
[2020-07-08] MEDS: Albuterol/Ipratropium 4 GM Inhalation Spray INH SCH ×7 (02:32→21:29)
[2020-07-08] MEDS: Codeine/guaiFENesin 10-100 MG/5 ML Syrup 5 ML Cup PO PRN ×2 (04:09→17:38)
[2020-07-08 06:42] LABS: BLOOD UREA NITROGEN,BUN 10 mg/dL (7.0-18.0); CARBON DIOXIDE,CO2 25.7 mmol/L (21.0-32.0); CHLORIDE,CL 107 mmol/L (98-107); GLUCOSE RANDOM 140 mg/dL (74-106); POTASSIUM,K 3.7 mmol/L (3.5-5.1); SODIUM,NA 142 mmol/L (136-148)
--- NOTE | 2020-07-08 08:18 | PCM.PN ---
<Joey Nguyen M - Last Filed: 07/08/20 13:02> - General Info Date of Service: 07/08/20 Subjective Update: Reports coughing a lot last night causing O2 desaturation. Breathing feels the same as yesterday. Denies any fevers, nausea, vomiting or chest pain. - Patient Data Vitals - Most Recent: Last Vital Signs Temp 36.2 C 07/08/20 04:09 Pulse 88 07/08/20 04:09 Resp 17 07/08/20 04:09 BP 137/90 07/08/20 04:09 Pulse Ox 95 07/08/20 07:02 Weight - Most Recent: 92.578 kg I&O - Last 24 Hours: Intake & Output 07/07/20 07/08/20 07/08/20 22:59 06:59 14:59 Intake Total 1250 1100 Output Total 350 1350 Balance 900 -250 Lab Results Last 24 Hours: Laboratory Results - last 24 hr 07/08/20 07/08/20 Range/Units 05:55 05:55 WBC 9.28 (4.0-11.0) K/uL RBC 4.55 (4.50-5.90) M/uL Hgb 14.0 (13.0-17.0) g/dL Hct 41.8 (38.0-50.0) % MCV 91.9 (80.0-98.0) fL MCH 30.8 (27.0-32.0) pg MCHC 33.5 (31.0-37.0) g/dL RDW Std Deviation 43.0 (28.0-62.0) fl RDW Coeff of Flakita 13 (11.0-15.0) % Plt Count 199 (150-400) K/uL MPV 11.10 (7.40-12.00) fL Neut % (Auto) 78.4 (48.0-80.0) % Lymph % (Auto) 14.4 L (16.0-40.0) % Dillon % (Auto) 7.1 (0.0-15.0) % Eos % (Auto) 0.0 (0.0-7.0) % Baso % (Auto) 0.1 (0.0-1.5) % Neut # (Auto) 7.3 H (1.4-5.7) K/uL Lymph # (Auto) 1.3 (0.6-2.4) K/uL Dillon # (Auto) 0.7 (0.0-0.8) K/uL Eos # (Auto) 0.0 (0.0-0.7) K/uL Baso # (Auto) 0.0 (0.0-0.1) K/uL Nucleated RBC % 0.0 /100WBC Nucleated RBCs # 0 K/uL Sodium 142 (136-148) mmol/L Potassium 3.7 (3.5-5.1) mmol/L Chloride 107 (98-107) mmol/L Carbon Dioxide 25.7 (21.0-32.0) mmol/L BUN 10 (7.0-18.0) mg/dL Creatinine 0.8 (0.8-1.3) mg/dL Est Cr Clr Drug Dosing 98.23 mL/min Estimated GFR (MDRD) > 60.0 ml/min Glucose 140 H (74-106) mg/dL Calcium 7.8 L (8.5-10.1) mg/dL Magnesium 2.3 (1.8-2.4) mg/dL Total Bilirubin 0.5 (0.2-1.0) mg/dL AST 67 H (15-37) IU/L ALT 84 H (14-63) IU/L Alkaline Phosphatase 57 (46-116) U/L Total Protein 6.5 (6.4-8.2) g/dL Albumin 2.6 L (3.4-5.0) g/dL Globulin 3.9 (2.6-4.0) g/dL Albumin/Globulin Ratio 0.7 L (0.9-1.6) Med Orders - Current: Current Medications Albuterol/Ipratropium (Combivent Respimat) 0 gm INH Q4HRRT [facility] Last Admin: 07/08/20 05:47 Dose: 1 puff Documented by: Benzonatate (Tessalon Perles) 200 mg PO TID PRN PRN Reason: Cough Last Admin: 07/07/20 21:25 Dose: 200 mg Documented by: Dexamethasone (Dexamethasone) 6 mg PO Q24H [facility] Last Admin: 07/07/20 12:35 Dose: 6 mg Documented by: Enoxaparin Sodium (Lovenox) 40 mg SUBCUT Q24H [facility] Last Admin: 07/07/20 16:00 Dose: 40 mg Documented by: Guaifenesin/Codeine Phosphate (Robitussin Ac) 5 ml PO Q6H PRN PRN Reason: Cough Last Admin: 07/08/20 04:09 Dose: 5 ml Documented by: Pantoprazole Sodium (Protonix) 40 mg PO DAILY [facility] Last Admin: 07/07/20 09:09 Dose: 40 mg Documented by: Sodium Chloride (Saline Flush) 10 ml FLUSH ASDIRECTED PRN PRN Reason: Keep Vein Open Last Admin: 07/06/20 21:31 Dose: 10 ml Documented by: Sodium Chloride (Saline Flush) 2.5 ml FLUSH ASDIRECTED PRN PRN Reason: Keep Vein Open Last Admin: 07/04/20 16:18 Dose: 2.5 ml Documented by: Discontinued Medications Acetaminophen (Tylenol) 650 mg PO NOW ONE Stop: 07/03/20 11:13 Last Admin: 07/03/20 11:17 Dose: 650 mg Documented by: Albuterol/Ipratropium (Combivent Respimat) 0 gm INH Q4H PRN PRN Reason: Dyspnea Albuterol/Ipratropium (Combivent Respimat) 0 gm INH Q4H [facility] Last Admin: 07/05/20 05:58 Dose: Not Given Documented by: Benzonatate (Tessalon Perles) 100 mg PO TID PRN PRN Reason: Cough Last Admin: 07/04/20 00:08 Dose: 100 mg Documented by: Dexamethasone (Decadron) 6 mg IVPUSH ONETIME ONE Stop: 07/03/20 12:37 Last Admin: 07/03/20 13:34 Dose: 6 mg Documented by: Remdesivir 200 mg/ Sodium (Chloride) 250 mls @ 250 mls/hr IV ONETIME ONE Stop: 07/03/20 13:02 Last Admin: 07/03/20 14:41 Dose: Not Given Documented by: Remdesivir 200 mg/ Sodium (Chloride) 250 mls @ 250 mls/hr IV ONETIME ONE Stop: 07/03/20 14:44 Last Admin: 07/03/20 14:21 Dose: 250 mls/hr Documented by: Remdesivir 100 mg/ Sodium (Chloride) 100 mls @ 100 mls/hr IV Q24H [facility] Stop: 07/07/20 14:59 Last Admin: 07/07/20 14:10 Dose: 100 mls/hr Documented by: Iodixanol (Visipaque 320) 100 ml IVPUSH ONETIME ONE Stop: 07/06/20 16:05 Last Admin: 07/06/20 16:05 Dose: 100 ml Documented by: Iopamidol (Isovue Multipack-370 (76%)) 100 ml IVPUSH ONETIME STA Stop: 07/06/20 16:01 Last Admin: 07/06/20 16:01 Dose: 100 ml Documented by: - Exam General: Alert, Oriented, Cooperative, No Acute Distress Lungs: Normal Respiratory Effort, Other (mild rales in bases b/l) Cardiovascular: Regular Rate, Regular Rhythm GI/Abdominal Exam: Normal Bowel Sounds, Soft, Non-Tender, No Distention Extremities: Normal Inspection, No Pedal Edema - Patient Data Lab Results Last 24 hrs: Laboratory Results - last 24 hr 07/08/20 07/08/20 Range/Units 05:55 05:55 WBC 9.28 (4.0-11.0) K/uL RBC 4.55 (4.50-5.90) M/uL Hgb 14.0 (13.0-17.0) g/dL Hct 41.8 (38.0-50.0) % MCV 91.9 (80.0-98.0) fL MCH 30.8 (27.0-32.0) pg MCHC 33.5 (31.0-37.0) g/dL RDW Std Deviation 43.0 (28.0-62.0) fl RDW Coeff of Flakita 13 (11.0-15.0) % Plt Count 199 (150-400) K/uL MPV 11.10 (7.40-12.00) fL Neut % (Auto) 78.4 (48.0-80.0) % Lymph % (Auto) 14.4 L (16.0-40.0) % Dillon % (Auto) 7.1 (0.0-15.0) % Eos % (Auto) 0.0 (0.0-7.0) % Baso % (Auto) 0.1 (0.0-1.5) % Neut # (Auto) 7.3 H (1.4-5.7) K/uL Lymph # (Auto) 1.3 (0.6-2.4) K/uL Dillon # (Auto) 0.7 (0.0-0.8) K/uL Eos # (Auto) 0.0 (0.0-0.7) K/uL Baso # (Auto) 0.0 (0.0-0.1) K/uL Nucleated RBC % 0.0 /100WBC Nucleated RBCs # 0 K/uL Sodium 142 (136-148) mmol/L Potassium 3.7 (3.5-5.1) mmol/L Chloride 107 (98-107) mmol/L Carbon Dioxide 25.7 (21.0-32.0) mmol/L BUN 10 (7.0-18.0) mg/dL Creatinine 0.8 (0.8-1.3) mg/dL Est Cr Clr Drug Dosing 98.23 mL/min Estimated GFR (MDRD) > 60.0 ml/min Glucose 140 H (74-106) mg/dL Calcium 7.8 L (8.5-10.1) mg/dL Magnesium 2.3 (1.8-2.4) mg/dL Total Bilirubin 0.5 (0.2-1.0) mg/dL AST 67 H (15-37) IU/L ALT 84 H (14-63) IU/L Alkaline Phosphatase 57 (46-116) U/L Total Protein 6.5 (6.4-8.2) g/dL Albumin 2.6 L (3.4-5.0) g/dL Globulin 3.9 (2.6-4.0) g/dL Albumin/Globulin Ratio 0.7 L (0.9-1.6) Result Diagrams: 07/08/20 05:55 07/08/20 05:55 Sepsis Event Note - Evaluation Sepsis Screening Result: No Definite Risk - Focused Exam Vital Signs: Vital Signs Temp Pulse Resp BP Pulse Ox Pulse Ox 07/08/20 07:02 95 07/08/20 06:50 91 L 07/08/20 06:33 88 L 07/08/20 04:09 36.2 C 88 17 137/90 91 L 07/08/20 02:59 88 L 07/08/20 00:22 35.7 C L 73 16 128/82 93 L 07/07/20 21:30 92 L - Problem List & Annotations (1) COVID-19 SNOMED Code(s): 108458765 Code(s): U07.1 - COVID-19 Status: Acute Current Visit: Yes (2) Hypoxia SNOMED Code(s): 571483861 Code(s): R09.02 - HYPOXEMIA Status: Acute Current Visit: Yes - Problem List Review Problem List Initiated/Reviewed/Updated: Yes - Plan Plan:: Assessment and Plan: 1. Acute hypoxic respiratory failure secondary to COVID-19 pneumonia: - Will continue HHF oxygen, he is currently on 40 L and 89% FiO2. As patient's respiratory status worsened overnight, will order repeat CT angio, ABG and start Levaquin. IV lasix 20 mg x1. Continue Combivent q4 [facility], dexamethasone 6 mg qd, Remdesivir, incentive spirometer and acapella. 2. DVT prophylaxis: - Lovenox 40 mg subcut qd. 3. GI prophylaxis: - Pantoprazole 40 mg qd. <Jagjit Taylor - Last Filed: 07/09/20 14:07> - General Info Subjective Update: I have seen and evaluated the patient and agree with the residents note unless specified in my note - Patient Data Vitals - Most Recent: Last Vital Signs Temp 36.7 C 07/09/20 07:00 Pulse 83 07/09/20 07:00 Resp 20 07/09/20 07:00 BP 119/83 07/09/20 07:00 Pulse Ox 93 L 07/09/20 07:00 I&O - Last 24 Hours: Intake & Output 07/08/20 07/09/20 07/09/20 22:59 06:59 14:59 Intake Total 1820 950 Output Total 1900 1200 Balance -80 -250 Lab Results Last 24 Hours: Laboratory Results - last 24 hr 07/09/20 07/09/20 Range/Units 06:45 06:45 WBC 9.22 (4.0-11.0) K/uL RBC 4.66 (4.50-5.90) M/uL Hgb 14.2 (13.0-17.0) g/dL Hct 42.8 (38.0-50.0) % MCV 91.8 (80.0-98.0) fL MCH 30.5 (27.0-32.0) pg MCHC 33.2 (31.0-37.0) g/dL RDW Std Deviation 43.4 (28.0-62.0) fl RDW Coeff of Flakita 13 (11.0-15.0) % Plt Count 219 (150-400) K/uL MPV 11.50 (7.40-12.00) fL Add Manual Diff YES Neutrophils % (Manual) 82 H (48.0-80.0) % Lymphocytes % (Manual) 12 L (16.0-40.0) % Monocytes % (Manual) 6 (0.0-15.0) % Nucleated RBC % 0.0 /100WBC Absolute Seg Neuts 7.6 H (1.4-5.7) Lymphocytes # (Manual) 1.1 (0.6-2.4) Monocytes # (Manual) 0.6 (0.0-0.8) Nucleated RBCs # 0 K/uL Sodium 140 (136-148) mmol/L Potassium 3.8 (3.5-5.1) mmol/L Chloride 105 (98-107) mmol/L Carbon Dioxide 27.3 (21.0-32.0) mmol/L BUN 15 (7.0-18.0) mg/dL Creatinine 0.8 (0.8-1.3) mg/dL Est Cr Clr Drug Dosing 98.23 mL/min Estimated GFR (MDRD) > 60.0 ml/min Glucose 139 H (74-106) mg/dL Calcium 7.9 L (8.5-10.1) mg/dL Magnesium 2.5 H (1.8-2.4) mg/dL Total Bilirubin 0.7 (0.2-1.0) mg/dL AST 47 H (15-37) IU/L ALT 78 H (14-63) IU/L Alkaline Phosphatase 66 (46-116) U/L Total Protein 6.8 (6.4-8.2) g/dL Albumin 2.7 L (3.4-5.0) g/dL Globulin 4.1 H (2.6-4.0) g/dL Albumin/Globulin Ratio 0.7 L (0.9-1.6) Med Orders - Current: Current Medications Albuterol/Ipratropium (Combivent Respimat) 0 gm INH Q4HRRT [facility] Last Admin: 07/09/20 14:02 Dose: 1 puff Documented by: Benzonatate (Tessalon Perles) 200 mg PO TID PRN PRN Reason: Cough Last Admin: 07/08/20 17:38 Dose: 200 mg Documented by: Dexamethasone (Dexamethasone) 6 mg PO Q24H [facility] Last Admin: 07/09/20 13:58 Dose: 6 mg Documented by: Docusate Sodium (Colace) 100 mg PO BID PRN PRN Reason: Constipation Enoxaparin Sodium (Lovenox) 40 mg SUBCUT Q24H [facility] Last Admin: 07/08/20 15:40 Dose: 40 mg Documented by: Guaifenesin/Codeine Phosphate (Robitussin Ac) 5 ml PO Q6H PRN PRN Reason: Cough Last Admin: 07/08/20 17:38 Dose: 5 ml Documented by: Levofloxacin/Dextrose 750 mg/ (Premix) 150 mls @ 100 mls/hr IV Q24H [facility] Last Admin: 07/09/20 10:29 Dose: 100 mls/hr Documented by: Lorazepam (Ativan) 1 mg IVPUSH Q6H PRN PRN Reason: Anxiety Last Admin: 07/08/20 23:20 Dose: 1 mg Documented by: Pantoprazole Sodium (Protonix) 40 mg PO DAILY [facility] Last Admin: 07/09/20 10:28 Dose: 40 mg Documented by: Sodium Chloride (Saline Flush) 10 ml FLUSH ASDIRECTED PRN PRN Reason: Keep Vein Open Last Admin: 07/06/20 21:31 Dose: 10 ml Documented by: Sodium Chloride (Saline Flush) 2.5 ml FLUSH ASDIRECTED PRN PRN Reason: Keep Vein Open Last Admin: 07/04/20 16:18 Dose: 2.5 ml Documented by: Discontinued Medications Acetaminophen (Tylenol) 650 mg PO NOW ONE Stop: 07/03/20 11:13 Last Admin: 07/03/20 11:17 Dose: 650 mg Documented by: Albuterol/Ipratropium (Combivent Respimat) 0 gm INH Q4H PRN PRN Reason: Dyspnea Albuterol/Ipratropium (Combivent Respimat) 0 gm INH Q4H [facility] Last Admin: 07/05/20 05:58 Dose: Not Given Documented by: Benzonatate (Tessalon Perles) 100 mg PO TID PRN PRN Reason: Cough Last Admin: 07/04/20 00:08 Dose: 100 mg Documented by: Dexamethasone (Decadron) 6 mg IVPUSH ONETIME ONE Stop: 07/03/20 12:37 Last Admin: 07/03/20 13:34 Dose: 6 mg Documented by: Furosemide (Lasix) 20 mg IVPUSH ONETIME ONE Stop: 07/08/20 11:11 Last Admin: 07/08/20 11:39 Dose: 20 mg Documented by: Furosemide (Lasix) 20 mg IVPUSH ONETIME ONE Stop: 07/09/20 13:27 Last Admin: 07/09/20 13:58 Dose: 20 mg Documented by: Remdesivir 200 mg/ Sodium (Chloride) 250 mls @ 250 mls/hr IV ONETIME ONE Stop: 07/03/20 13:02 Last Admin: 07/03/20 14:41 Dose: Not Given Documented by: Remdesivir 200 mg/ Sodium (Chloride) 250 mls @ 250 mls/hr IV ONETIME ONE Stop: 07/03/20 14:44 Last Admin: 07/03/20 14:21 Dose: 250 mls/hr Documented by: Remdesivir 100 mg/ Sodium (Chloride) 100 mls @ 100 mls/hr IV Q24H [facility] Stop: 07/07/20 14:59 Last Admin: 07/07/20 14:10 Dose: 100 mls/hr Documented by: Iodixanol (Visipaque 320) 100 ml IVPUSH ONETIME ONE Stop: 07/06/20 16:05 Last Admin: 07/06/20 16:05 Dose: 100 ml Documented by: Iopamidol (Isovue Multipack-370 (76%)) 100 ml IVPUSH ONETIME STA Stop: 07/06/20 16:01 Last Admin: 07/06/20 16:01 Dose: 100 ml Documented by: Iopamidol (Isovue Multipack-370 (76%)) 100 ml IVPUSH ONETIME ONE Stop: 07/08/20 12:59 Last Admin: 07/08/20 12:58 Dose: 100 ml Documented by: - Patient Data Lab Results Last 24 hrs: Laboratory Results - last 24 hr 07/09/20 07/09/20 Range/Units 06:45 06:45 WBC 9.22 (4.0-11.0) K/uL RBC 4.66 (4.50-5.90) M/uL Hgb 14.2 (13.0-17.0) g/dL Hct 42.8 (38.0-50.0) % MCV 91.8 (80.0-98.0) fL MCH 30.5 (27.0-32.0) pg MCHC 33.2 (31.0-37.0) g/dL RDW Std Deviation 43.4 (28.0-62.0) fl RDW Coeff of Flakita 13 (11.0-15.0) % Plt Count 219 (150-400) K/uL MPV 11.50 (7.40-12.00) fL Add Manual Diff YES Neutrophils % (Manual) 82 H (48.0-80.0) % Lymphocytes % (Manual) 12 L (16.0-40.0) % Monocytes % (Manual) 6 (0.0-15.0) % Nucleated RBC % 0.0 /100WBC Absolute Seg Neuts 7.6 H (1.4-5.7) Lymphocytes # (Manual) 1.1 (0.6-2.4) Monocytes # (Manual) 0.6 (0.0-0.8) Nucleated RBCs # 0 K/uL Sodium 140 (136-148) mmol/L Potassium 3.8 (3.5-5.1) mmol/L Chloride 105 (98-107) mmol/L Carbon Dioxide 27.3 (21.0-32.0) mmol/L BUN 15 (7.0-18.0) mg/dL Creatinine 0.8 (0.8-1.3) mg/dL Est Cr Clr Drug Dosing 98.23 mL/min Estimated GFR (MDRD) > 60.0 ml/min Glucose 139 H (74-106) mg/dL Calcium 7.9 L (8.5-10.1) mg/dL Magnesium 2.5 H (1.8-2.4) mg/dL Total Bilirubin 0.7 (0.2-1.0) mg/dL AST 47 H (15-37) IU/L ALT 78 H (14-63) IU/L Alkaline Phosphatase 66 (46-116) U/L Total Protein 6.8 (6.4-8.2) g/dL Albumin 2.7 L (3.4-5.0) g/dL Globulin 4.1 H (2.6-4.0) g/dL Albumin/Globulin Ratio 0.7 L (0.9-1.6) Result Diagrams: 07/09/20 06:45 07/09/20 06:45 Sepsis Event Note - Focused Exam Vital Signs: Vital Signs Temp Pulse Resp BP BP Pulse Ox Pulse Ox 07/09/20 07:00 36.7 C 83 20 119/83 93 L 93 L 07/09/20 03:29 36.4 C 71 22 H 123/69 97 - My Orders Last 24 Hours: My Active Orders 07/08/20 22:59 LORazepam [Ativan] 1 mg IVPUSH Q6H PRN
[2020-07-08] MEDS: Pantoprazole 40 MG Tab.CR PO SCH (09:22)
[2020-07-08] MEDS: Benzonatate 100 MG Cap PO PRN ×2 (09:22→17:38)
[2020-07-08] MEDS ORDERED: Furosemide 20 MG/2 ML VIAL IVPUSH ONE (11:10)
[2020-07-08] MEDS: Levofloxacin/Dextrose 5%-Water 750 MG in Premix Bag 1 BAG IV SCH (11:41)
[2020-07-08] MEDS: Dexamethasone 4 MG Tab PO SCH (12:04)
[2020-07-08] MEDS ORDERED: Iopamidol 755 MG/ML 500 ML Multipack Bottle IVPUSH ONE (12:58)
--- NOTE | 2020-07-08 13:42 | CT ---
Indication: Respiratory distress Technique: CT PE with 100 mL Isovue 370 Comparison: CT chest 07/06/2020 Findings: Normal caliber thoracic aorta. Poor enhancement of the pulmonary arteries. No central pulmonary emboli. Mildly prominent mediastinal nodes probably reactive. The heart size is normal. There is no pericardial effusion. Diffuse bilateral patchy ground-glass opacities again seen without significant change. Fatty liver. No acute findings in the upper abdomen small hiatal hernia. Impression: 1. Poor enhancement of the pulmonary arteries. No central pulmonary emboli. 2. Diffuse bilateral patchy ground-glass opacities without significant change consistent the patient`s known COVID infection. Please note that all CT scans at this facility use dose modulation, iterative reconstruction, and/or weight-based dosing when appropriate to reduce radiation dose to as low as reasonably achievable. Dictated by Moriah Jenkins MD @ Jul 08 2020 1:31PM Signed by Dr. Moriah Jenkins @ Jul 08 2020 1:41PM
[2020-07-08] MEDS: Enoxaparin 40 MG/0.4 ML Syringe SUBCUT SCH (15:40)
[2020-07-08] MEDS: LORazepam 2 MG/ML SDV IVPUSH PRN (23:20)
[2020-07-09] MEDS: Albuterol/Ipratropium 4 GM Inhalation Spray INH SCH ×6 (01:50→21:04)
[2020-07-09 07:52] LABS: BLOOD UREA NITROGEN,BUN 15 mg/dL (7.0-18.0); CARBON DIOXIDE,CO2 27.3 mmol/L (21.0-32.0); CHLORIDE,CL 105 mmol/L (98-107); GLUCOSE RANDOM 139 mg/dL (74-106); POTASSIUM,K 3.8 mmol/L (3.5-5.1); SODIUM,NA 140 mmol/L (136-148)
--- NOTE | 2020-07-09 08:46 | PCM.PN ---
<Joey Nguyen M - Last Filed: 07/09/20 11:28> - General Info Date of Service: 07/09/20 Subjective Update: Per nursing, patient was on BiPAP for most of the night. At bedside, patient states breathing feels similar to yesterday but continues to have a bad cough. - Patient Data Vitals - Most Recent: Last Vital Signs Temp 36.7 C 07/09/20 07:00 Pulse 83 07/09/20 07:00 Resp 20 07/09/20 07:00 BP 119/83 07/09/20 07:00 Pulse Ox 93 L 07/09/20 07:00 Weight - Most Recent: 92.578 kg I&O - Last 24 Hours: Intake & Output 07/08/20 07/09/20 07/09/20 22:59 06:59 14:59 Intake Total 1820 950 Output Total 1900 1200 Balance -80 -250 Lab Results Last 24 Hours: Laboratory Results - last 24 hr 07/08/20 07/09/20 07/09/20 Range/Units 11:29 06:45 06:45 WBC 9.22 (4.0-11.0) K/uL RBC 4.66 (4.50-5.90) M/uL Hgb 14.2 (13.0-17.0) g/dL Hct 42.8 (38.0-50.0) % MCV 91.8 (80.0-98.0) fL MCH 30.5 (27.0-32.0) pg MCHC 33.2 (31.0-37.0) g/dL RDW Std Deviation 43.4 (28.0-62.0) fl RDW Coeff of Flakita 13 (11.0-15.0) % Plt Count 219 (150-400) K/uL MPV 11.50 (7.40-12.00) fL Add Manual Diff YES Neutrophils % (Manual) 82 H (48.0-80.0) % Lymphocytes % (Manual) 12 L (16.0-40.0) % Monocytes % (Manual) 6 (0.0-15.0) % Nucleated RBC % 0.0 /100WBC Absolute Seg Neuts 7.6 H (1.4-5.7) Lymphocytes # (Manual) 1.1 (0.6-2.4) Monocytes # (Manual) 0.6 (0.0-0.8) Nucleated RBCs # 0 K/uL ABG pH 7.559 H (7.35-7.45) ABG pCO2 29 L (35-45) mmHG ABG pO2 105 H (75-100) mmHG ABG HCO3 26 (22-26) mEq/L ABG Total CO2 22.1 ABG Base Excess 4.4 H (-2.0-2.0) Sodium 140 (136-148) mmol/L Potassium 3.8 (3.5-5.1) mmol/L Chloride 105 (98-107) mmol/L Carbon Dioxide 27.3 (21.0-32.0) mmol/L BUN 15 (7.0-18.0) mg/dL Creatinine 0.8 (0.8-1.3) mg/dL Est Cr Clr Drug Dosing 98.23 mL/min Estimated GFR (MDRD) > 60.0 ml/min Glucose 139 H (74-106) mg/dL Calcium 7.9 L (8.5-10.1) mg/dL Magnesium 2.5 H (1.8-2.4) mg/dL Total Bilirubin 0.7 (0.2-1.0) mg/dL AST 47 H (15-37) IU/L ALT 78 H (14-63) IU/L Alkaline Phosphatase 66 (46-116) U/L Total Protein 6.8 (6.4-8.2) g/dL Albumin 2.7 L (3.4-5.0) g/dL Globulin 4.1 H (2.6-4.0) g/dL Albumin/Globulin Ratio 0.7 L (0.9-1.6) Med Orders - Current: Current Medications Albuterol/Ipratropium (Combivent Respimat) 0 gm INH Q4HRRT [facility] Last Admin: 07/09/20 06:27 Dose: 1 puff Documented by: Benzonatate (Tessalon Perles) 200 mg PO TID PRN PRN Reason: Cough Last Admin: 07/08/20 17:38 Dose: 200 mg Documented by: Dexamethasone (Dexamethasone) 6 mg PO Q24H [facility] Last Admin: 07/08/20 12:04 Dose: 6 mg Documented by: Enoxaparin Sodium (Lovenox) 40 mg SUBCUT Q24H [facility] Last Admin: 07/08/20 15:40 Dose: 40 mg Documented by: Guaifenesin/Codeine Phosphate (Robitussin Ac) 5 ml PO Q6H PRN PRN Reason: Cough Last Admin: 07/08/20 17:38 Dose: 5 ml Documented by: Levofloxacin/Dextrose 750 mg/ (Premix) 150 mls @ 100 mls/hr IV Q24H [facility] Last Admin: 07/08/20 11:41 Dose: 100 mls/hr Documented by: Lorazepam (Ativan) 1 mg IVPUSH Q6H PRN PRN Reason: Anxiety Last Admin: 07/08/20 23:20 Dose: 1 mg Documented by: Pantoprazole Sodium (Protonix) 40 mg PO DAILY [facility] Last Admin: 07/08/20 09:22 Dose: 40 mg Documented by: Sodium Chloride (Saline Flush) 10 ml FLUSH ASDIRECTED PRN PRN Reason: Keep Vein Open Last Admin: 07/06/20 21:31 Dose: 10 ml Documented by: Sodium Chloride (Saline Flush) 2.5 ml FLUSH ASDIRECTED PRN PRN Reason: Keep Vein Open Last Admin: 07/04/20 16:18 Dose: 2.5 ml Documented by: Discontinued Medications Acetaminophen (Tylenol) 650 mg PO NOW ONE Stop: 07/03/20 11:13 Last Admin: 07/03/20 11:17 Dose: 650 mg Documented by: Albuterol/Ipratropium (Combivent Respimat) 0 gm INH Q4H PRN PRN Reason: Dyspnea Albuterol/Ipratropium (Combivent Respimat) 0 gm INH Q4H [facility] Last Admin: 07/05/20 05:58 Dose: Not Given Documented by: Benzonatate (Tessalon Perles) 100 mg PO TID PRN PRN Reason: Cough Last Admin: 07/04/20 00:08 Dose: 100 mg Documented by: Dexamethasone (Decadron) 6 mg IVPUSH ONETIME ONE Stop: 07/03/20 12:37 Last Admin: 07/03/20 13:34 Dose: 6 mg Documented by: Furosemide (Lasix) 20 mg IVPUSH ONETIME ONE Stop: 07/08/20 11:11 Last Admin: 07/08/20 11:39 Dose: 20 mg Documented by: Remdesivir 200 mg/ Sodium (Chloride) 250 mls @ 250 mls/hr IV ONETIME ONE Stop: 07/03/20 13:02 Last Admin: 07/03/20 14:41 Dose: Not Given Documented by: Remdesivir 200 mg/ Sodium (Chloride) 250 mls @ 250 mls/hr IV ONETIME ONE Stop: 07/03/20 14:44 Last Admin: 07/03/20 14:21 Dose: 250 mls/hr Documented by: Remdesivir 100 mg/ Sodium (Chloride) 100 mls @ 100 mls/hr IV Q24H [facility] Stop: 07/07/20 14:59 Last Admin: 07/07/20 14:10 Dose: 100 mls/hr Documented by: Iodixanol (Visipaque 320) 100 ml IVPUSH ONETIME ONE Stop: 07/06/20 16:05 Last Admin: 07/06/20 16:05 Dose: 100 ml Documented by: Iopamidol (Isovue Multipack-370 (76%)) 100 ml IVPUSH ONETIME STA Stop: 07/06/20 16:01 Last Admin: 07/06/20 16:01 Dose: 100 ml Documented by: Iopamidol (Isovue Multipack-370 (76%)) 100 ml IVPUSH ONETIME ONE Stop: 07/08/20 12:59 Last Admin: 07/08/20 12:58 Dose: 100 ml Documented by: - Exam General: Alert, Oriented, Cooperative, No Acute Distress Lungs: Normal Respiratory Effort, Other (mild rales in bases b/l) Cardiovascular: Regular Rate, Regular Rhythm GI/Abdominal Exam: Normal Bowel Sounds, Soft, Non-Tender, No Distention Extremities: Normal Inspection, No Pedal Edema - Patient Data Lab Results Last 24 hrs: Laboratory Results - last 24 hr 07/08/20 07/09/20 07/09/20 Range/Units 11:29 06:45 06:45 WBC 9.22 (4.0-11.0) K/uL RBC 4.66 (4.50-5.90) M/uL Hgb 14.2 (13.0-17.0) g/dL Hct 42.8 (38.0-50.0) % MCV 91.8 (80.0-98.0) fL MCH 30.5 (27.0-32.0) pg MCHC 33.2 (31.0-37.0) g/dL RDW Std Deviation 43.4 (28.0-62.0) fl RDW Coeff of Flakita 13 (11.0-15.0) % Plt Count 219 (150-400) K/uL MPV 11.50 (7.40-12.00) fL Add Manual Diff YES Neutrophils % (Manual) 82 H (48.0-80.0) % Lymphocytes % (Manual) 12 L (16.0-40.0) % Monocytes % (Manual) 6 (0.0-15.0) % Nucleated RBC % 0.0 /100WBC Absolute Seg Neuts 7.6 H (1.4-5.7) Lymphocytes # (Manual) 1.1 (0.6-2.4) Monocytes # (Manual) 0.6 (0.0-0.8) Nucleated RBCs # 0 K/uL ABG pH 7.559 H (7.35-7.45) ABG pCO2 29 L (35-45) mmHG ABG pO2 105 H (75-100) mmHG ABG HCO3 26 (22-26) mEq/L ABG Total CO2 22.1 ABG Base Excess 4.4 H (-2.0-2.0) Sodium 140 (136-148) mmol/L Potassium 3.8 (3.5-5.1) mmol/L Chloride 105 (98-107) mmol/L Carbon Dioxide 27.3 (21.0-32.0) mmol/L BUN 15 (7.0-18.0) mg/dL Creatinine 0.8 (0.8-1.3) mg/dL Est Cr Clr Drug Dosing 98.23 mL/min Estimated GFR (MDRD) > 60.0 ml/min Glucose 139 H (74-106) mg/dL Calcium 7.9 L (8.5-10.1) mg/dL Magnesium 2.5 H (1.8-2.4) mg/dL Total Bilirubin 0.7 (0.2-1.0) mg/dL AST 47 H (15-37) IU/L ALT 78 H (14-63) IU/L Alkaline Phosphatase 66 (46-116) U/L Total Protein 6.8 (6.4-8.2) g/dL Albumin 2.7 L (3.4-5.0) g/dL Globulin 4.1 H (2.6-4.0) g/dL Albumin/Globulin Ratio 0.7 L (0.9-1.6) Result Diagrams: 07/09/20 06:45 07/09/20 06:45 Sepsis Event Note - Evaluation Sepsis Screening Result: No Definite Risk - Focused Exam Vital Signs: Vital Signs Temp Pulse Resp BP BP Pulse Ox Pulse Ox 07/09/20 07:00 36.7 C 83 20 119/83 93 L 93 L 07/09/20 03:29 36.4 C 71 22 H 123/69 97 07/08/20 23:19 36.7 C 77 25 H 128/57 L 96 07/08/20 20:59 36.5 C 88 21 H 129/75 96 - Problem List & Annotations (1) COVID-19 SNOMED Code(s): 278975613 Code(s): U07.1 - COVID-19 Status: Acute Current Visit: Yes (2) Hypoxia SNOMED Code(s): 539493304 Code(s): R09.02 - HYPOXEMIA Status: Acute Current Visit: Yes - Problem List Review Problem List Initiated/Reviewed/Updated: Yes - My Orders Last 24 Hours: My Active Orders 07/08/20 12:42 Telemetry Monitoring [Cardiac Monitoring] [RC] Q8H 07/08/20 20:33 BIPAP Adult [RT BiPAP/CPAP] [RC] ASDIRECTED - Plan Plan:: Assessment and Plan: 1. Acute hypoxic respiratory failure secondary to COVID-19 pneumonia: - Patient tolerated BiPAP for most of the night. Currently on HHF this AM: 50L, 86% FiO2 and 94% O2 saturation. Continue Combivent q4 [facility], dexamethasone 6 mg qd, Levaquin, incentive spirometer and acapella. Remdesivir 5-day course is complete. Will continue BiPAP overnight. - Repeat CT angio showed poor enhancement of pulmonary arteries. No central pulmonary emboli. Diffuse b/l ground-glass opacities without significant change from prior CT. 2. DVT prophylaxis: - Lovenox 40 mg subcut qd. 3. GI prophylaxis: - Pantoprazole 40 mg qd. <Jagjit Taylor - Last Filed: 07/10/20 14:29> - General Info Subjective Update: I have seen and evaluated the patient and agree with the residents note unless specified in my note - Patient Data Vitals - Most Recent: Last Vital Signs Temp 37.0 C 07/10/20 12:22 Pulse 126 H 07/10/20 12:22 Resp 23 H 07/10/20 12:22 BP 118/74 07/10/20 12:22 Pulse Ox 90 L 07/10/20 12:22 I&O - Last 24 Hours: Intake & Output 07/09/20 07/10/20 07/10/20 22:59 06:59 14:59 Intake Total 2240 200 Output Total 2000 475 Balance 240 -275 Lab Results Last 24 Hours: Laboratory Results - last 24 hr 07/10/20 07/10/20 Range/Units 06:15 06:15 WBC 9.43 (4.0-11.0) K/uL RBC 4.75 (4.50-5.90) M/uL Hgb 14.7 (13.0-17.0) g/dL Hct 43.8 (38.0-50.0) % MCV 92.2 (80.0-98.0) fL MCH 30.9 (27.0-32.0) pg MCHC 33.6 (31.0-37.0) g/dL RDW Std Deviation 43.8 (28.0-62.0) fl RDW Coeff of Flakita 13 (11.0-15.0) % Plt Count 243 (150-400) K/uL MPV 11.60 (7.40-12.00) fL Add Manual Diff YES Neutrophils % (Manual) 85 H (48.0-80.0) % Band Neutrophils % 4 % Lymphocytes % (Manual) 10 L (16.0-40.0) % Monocytes % (Manual) 1 (0.0-15.0) % Nucleated RBC % 0.0 /100WBC Absolute Seg Neuts 8.0 H (1.4-5.7) Band Neutrophils # 0.4 Lymphocytes # (Manual) 0.9 (0.6-2.4) Monocytes # (Manual) 0.1 (0.0-0.8) Nucleated RBCs # 0 K/uL Sodium 142 (136-148) mmol/L Potassium 4.1 (3.5-5.1) mmol/L Chloride 106 (98-107) mmol/L Carbon Dioxide 29.6 (21.0-32.0) mmol/L BUN 15 (7.0-18.0) mg/dL Creatinine 0.9 (0.8-1.3) mg/dL Est Cr Clr Drug Dosing 87.31 mL/min Estimated GFR (MDRD) > 60.0 ml/min Glucose 138 H (74-106) mg/dL Calcium 8.0 L (8.5-10.1) mg/dL Phosphorus 3.6 (2.6-4.7) mg/dL Magnesium 2.4 (1.8-2.4) mg/dL Total Bilirubin 0.6 (0.2-1.0) mg/dL AST 38 H (15-37) IU/L ALT 62 (14-63) IU/L Alkaline Phosphatase 61 (46-116) U/L Total Protein 7.1 (6.4-8.2) g/dL Albumin 2.6 L (3.4-5.0) g/dL Globulin 4.5 H (2.6-4.0) g/dL Albumin/Globulin Ratio 0.6 L (0.9-1.6) Med Orders - Current: Current Medications Albuterol/Ipratropium (Combivent Respimat) 0 gm INH Q4HRRT [facility] Last Admin: 07/10/20 14:27 Dose: 1 puff Documented by: Benzonatate (Tessalon Perles) 200 mg PO TID PRN PRN Reason: Cough Last Admin: 07/10/20 08:12 Dose: 200 mg Documented by: Dexamethasone (Dexamethasone) 6 mg PO Q24H [facility] Last Admin: 07/10/20 12:42 Dose: 6 mg Documented by: Docusate Sodium (Colace) 100 mg PO BID PRN PRN Reason: Constipation Last Admin: 07/09/20 18:19 Dose: 100 mg Documented by: Enoxaparin Sodium (Lovenox) 40 mg SUBCUT Q24H [facility] Last Admin: 07/09/20 15:58 Dose: 40 mg Documented by: Guaifenesin/Codeine Phosphate (Robitussin Ac) 5 ml PO Q6H PRN PRN Reason: Cough Last Admin: 07/10/20 08:12 Dose: 5 ml Documented by: Levofloxacin/Dextrose 750 mg/ (Premix) 150 mls @ 100 mls/hr IV Q24H [facility] Last Admin: 07/10/20 11:05 Dose: 100 mls/hr Documented by: Lorazepam (Ativan) 1 mg IVPUSH Q6H PRN PRN Reason: Anxiety Last Admin: 07/09/20 18:16 Dose: 1 mg Documented by: Pantoprazole Sodium (Protonix) 40 mg PO DAILY [facility] Last Admin: 07/10/20 08:12 Dose: 40 mg Documented by: Sodium Chloride (Saline Flush) 10 ml FLUSH ASDIRECTED PRN PRN Reason: Keep Vein Open Last Admin: 07/06/20 21:31 Dose: 10 ml Documented by: Sodium Chloride (Saline Flush) 2.5 ml FLUSH ASDIRECTED PRN PRN Reason: Keep Vein Open Last Admin: 07/10/20 08:17 Dose: 2.5 ml Documented by: Discontinued Medications Acetaminophen (Tylenol) 650 mg PO NOW ONE Stop: 07/03/20 11:13 Last Admin: 07/03/20 11:17 Dose: 650 mg Documented by: Albuterol/Ipratropium (Combivent Respimat) 0 gm INH Q4H PRN PRN Reason: Dyspnea Albuterol/Ipratropium (Combivent Respimat) 0 gm INH Q4H [facility] Last Admin: 07/05/20 05:58 Dose: Not Given Documented by: Benzonatate (Tessalon Perles) 100 mg PO TID PRN PRN Reason: Cough Last Admin: 07/04/20 00:08 Dose: 100 mg Documented by: Dexamethasone (Decadron) 6 mg IVPUSH ONETIME ONE Stop: 07/03/20 12:37 Last Admin: 07/03/20 13:34 Dose: 6 mg Documented by: Furosemide (Lasix) 20 mg IVPUSH ONETIME ONE Stop: 07/08/20 11:11 Last Admin: 07/08/20 11:39 Dose: 20 mg Documented by: Furosemide (Lasix) 20 mg IVPUSH ONETIME ONE Stop: 07/09/20 13:27 Last Admin: 07/09/20 13:58 Dose: 20 mg Documented by: Furosemide (Lasix) 20 mg IVPUSH ONETIME ONE Stop: 07/10/20 11:07 Last Admin: 07/10/20 12:42 Dose: 20 mg Documented by: Remdesivir 200 mg/ Sodium (Chloride) 250 mls @ 250 mls/hr IV ONETIME ONE Stop: 07/03/20 13:02 Last Admin: 07/03/20 14:41 Dose: Not Given Documented by: Remdesivir 200 mg/ Sodium (Chloride) 250 mls @ 250 mls/hr IV ONETIME ONE Stop: 07/03/20 14:44 Last Admin: 07/03/20 14:21 Dose: 250 mls/hr Documented by: Remdesivir 100 mg/ Sodium (Chloride) 100 mls @ 100 mls/hr IV Q24H [facility] Stop: 07/07/20 14:59 Last Admin: 07/07/20 14:10 Dose: 100 mls/hr Documented by: Iodixanol (Visipaque 320) 100 ml IVPUSH ONETIME ONE Stop: 07/06/20 16:05 Last Admin: 07/06/20 16:05 Dose: 100 ml Documented by: Iopamidol (Isovue Multipack-370 (76%)) 100 ml IVPUSH ONETIME STA Stop: 07/06/20 16:01 Last Admin: 07/06/20 16:01 Dose: 100 ml Documented by: Iopamidol (Isovue Multipack-370 (76%)) 100 ml IVPUSH ONETIME ONE Stop: 07/08/20 12:59 Last Admin: 07/08/20 12:58 Dose: 100 ml Documented by: - Patient Data Lab Results Last 24 hrs: Laboratory Results - last 24 hr 07/10/20 07/10/20 Range/Units 06:15 06:15 WBC 9.43 (4.0-11.0) K/uL RBC 4.75 (4.50-5.90) M/uL Hgb 14.7 (13.0-17.0) g/dL Hct 43.8 (38.0-50.0) % MCV 92.2 (80.0-98.0) fL MCH 30.9 (27.0-32.0) pg MCHC 33.6 (31.0-37.0) g/dL RDW Std Deviation 43.8 (28.0-62.0) fl RDW Coeff of Flakita 13 (11.0-15.0) % Plt Count 243 (150-400) K/uL MPV 11.60 (7.40-12.00) fL Add Manual Diff YES Neutrophils % (Manual) 85 H (48.0-80.0) % Band Neutrophils % 4 % Lymphocytes % (Manual) 10 L (16.0-40.0) % Monocytes % (Manual) 1 (0.0-15.0) % Nucleated RBC % 0.0 /100WBC Absolute Seg Neuts 8.0 H (1.4-5.7) Band Neutrophils # 0.4 Lymphocytes # (Manual) 0.9 (0.6-2.4) Monocytes # (Manual) 0.1 (0.0-0.8) Nucleated RBCs # 0 K/uL Sodium 142 (136-148) mmol/L Potassium 4.1 (3.5-5.1) mmol/L Chloride 106 (98-107) mmol/L Carbon Dioxide 29.6 (21.0-32.0) mmol/L BUN 15 (7.0-18.0) mg/dL Creatinine 0.9 (0.8-1.3) mg/dL Est Cr Clr Drug Dosing 87.31 mL/min Estimated GFR (MDRD) > 60.0 ml/min Glucose 138 H (74-106) mg/dL Calcium 8.0 L (8.5-10.1) mg/dL Phosphorus 3.6 (2.6-4.7) mg/dL Magnesium 2.4 (1.8-2.4) mg/dL Total Bilirubin 0.6 (0.2-1.0) mg/dL AST 38 H (15-37) IU/L ALT 62 (14-63) IU/L Alkaline Phosphatase 61 (46-116) U/L Total Protein 7.1 (6.4-8.2) g/dL Albumin 2.6 L (3.4-5.0) g/dL Globulin 4.5 H (2.6-4.0) g/dL Albumin/Globulin Ratio 0.6 L (0.9-1.6) Result Diagrams: 07/10/20 06:15 07/10/20 06:15 Sepsis Event Note - Focused Exam Vital Signs: Vital Signs Temp Pulse Resp BP BP Pulse Ox Pulse Ox 07/10/20 12:22 37.0 C 126 H 23 H 118/74 90 L 07/10/20 09:58 07/10/20 09:33 92 L 07/10/20 08:20 95 07/10/20 08:10 07/10/20 07:57 36.4 C 103 H 25 H 134/84 91 L 07/10/20 04:03 35.9 C L 85 25 H 134/81 91 L Pulse Ox 07/10/20 12:22 07/10/20 09:58 89 L 07/10/20 09:33 07/10/20 08:20 07/10/20 08:10 86 L 07/10/20 07:57 07/10/20 04:03 - Problem List & Annotations (1) Acute hypoxemic respiratory failure SNOMED Code(s): 634508640 Code(s): J96.01 - ACUTE RESPIRATORY FAILURE WITH HYPOXIA Status: Acute Current Visit: Yes (2) COVID-19 SNOMED Code(s): 469812296 Code(s): U07.1 - COVID-19 Status: Acute Current Visit: Yes - My Orders Last 24 Hours: My Active Orders 07/10/20 12:32 Transfer Patient (Change bed) [ADT] Routine
[2020-07-09] MEDS ORDERED: Docusate Sodium 100 MG Cap PO PRN (08:53)
[2020-07-09] MEDS: Pantoprazole 40 MG Tab.CR PO SCH (10:28)
[2020-07-09] MEDS: Levofloxacin/Dextrose 5%-Water 750 MG in Premix Bag 1 BAG IV SCH (10:29)
[2020-07-09] MEDS ORDERED: Furosemide 20 MG/2 ML VIAL IVPUSH ONE (13:26)
[2020-07-09] MEDS: Dexamethasone 4 MG Tab PO SCH (13:58)
[2020-07-09] MEDS: Enoxaparin 40 MG/0.4 ML Syringe SUBCUT SCH (15:58)
[2020-07-09] MEDS: Codeine/guaiFENesin 10-100 MG/5 ML Syrup 5 ML Cup PO PRN (17:39)
[2020-07-09] MEDS: Benzonatate 100 MG Cap PO PRN (18:15)
[2020-07-09] MEDS: LORazepam 2 MG/ML SDV IVPUSH PRN (18:16)
[2020-07-10] MEDS: Albuterol/Ipratropium 4 GM Inhalation Spray INH SCH ×6 (01:50→21:37)
[2020-07-10 07:10] LABS: BLOOD UREA NITROGEN,BUN 15 mg/dL (7.0-18.0); CARBON DIOXIDE,CO2 29.6 mmol/L (21.0-32.0); CHLORIDE,CL 106 mmol/L (98-107); GLUCOSE RANDOM 138 mg/dL (74-106); POTASSIUM,K 4.1 mmol/L (3.5-5.1); SODIUM,NA 142 mmol/L (136-148)
[2020-07-10] MEDS: Benzonatate 100 MG Cap PO PRN ×2 (08:12→17:39)
[2020-07-10] MEDS: Codeine/guaiFENesin 10-100 MG/5 ML Syrup 5 ML Cup PO PRN ×3 (08:12→23:55)
[2020-07-10] MEDS: Pantoprazole 40 MG Tab.CR PO SCH (08:12)
[2020-07-10] MEDS: Sodium Chloride 0.9% 2.5 ML Syringe FLUSH PRN ×2 (08:17→11:04)
[2020-07-10] MEDS: Levofloxacin/Dextrose 5%-Water 750 MG in Premix Bag 1 BAG IV SCH (11:05)
[2020-07-10] MEDS ORDERED: Furosemide 20 MG/2 ML VIAL IVPUSH ONE (11:06)
[2020-07-10] MEDS: Dexamethasone 4 MG Tab PO SCH (12:42)
--- NOTE | 2020-07-10 13:07 | PCM.PN ---
- General Info Date of Service: 07/10/20 Admission Dx/Problem (Free Text): Admission Diagnosis/Problem Admission Diagnosis/Problem Hypoxia Subjective Update: seen at bedside, sitting on chair, speaking on phone comfortably - Review of Systems General: Reports: Weakness, Fatigue. Denies: Fever Pulmonary: Reports: Shortness of Breath, Cough. Denies: Pleuritic Chest Pain Gastrointestinal: Denies: Abdominal Pain, Constipation, Decreased Appetite Genitourinary: Denies: Dysuria, Frequency, Burning Musculoskeletal: Denies: Neck Pain, Shoulder Pain, Arm Pain Skin: Denies: Cyanosis, Jaundice, Mottled Neurological: Denies: Confusion, Dizziness, Headache - Patient Data Vitals - Most Recent: Last Vital Signs Temp 36.4 C 07/10/20 07:57 Pulse 103 H 07/10/20 07:57 Resp 25 H 07/10/20 07:57 BP 134/84 07/10/20 07:57 Pulse Ox 89 L 07/10/20 09:58 Weight - Most Recent: 92.578 kg I&O - Last 24 Hours: Intake & Output 07/09/20 07/10/20 07/10/20 22:59 06:59 14:59 Intake Total 2240 200 Output Total 2000 475 Balance 240 -275 Lab Results Last 24 Hours: Laboratory Results - last 24 hr 07/10/20 07/10/20 Range/Units 06:15 06:15 WBC 9.43 (4.0-11.0) K/uL RBC 4.75 (4.50-5.90) M/uL Hgb 14.7 (13.0-17.0) g/dL Hct 43.8 (38.0-50.0) % MCV 92.2 (80.0-98.0) fL MCH 30.9 (27.0-32.0) pg MCHC 33.6 (31.0-37.0) g/dL RDW Std Deviation 43.8 (28.0-62.0) fl RDW Coeff of Flakita 13 (11.0-15.0) % Plt Count 243 (150-400) K/uL MPV 11.60 (7.40-12.00) fL Add Manual Diff YES Neutrophils % (Manual) 85 H (48.0-80.0) % Band Neutrophils % 4 % Lymphocytes % (Manual) 10 L (16.0-40.0) % Monocytes % (Manual) 1 (0.0-15.0) % Nucleated RBC % 0.0 /100WBC Absolute Seg Neuts 8.0 H (1.4-5.7) Band Neutrophils # 0.4 Lymphocytes # (Manual) 0.9 (0.6-2.4) Monocytes # (Manual) 0.1 (0.0-0.8) Nucleated RBCs # 0 K/uL Sodium 142 (136-148) mmol/L Potassium 4.1 (3.5-5.1) mmol/L Chloride 106 (98-107) mmol/L Carbon Dioxide 29.6 (21.0-32.0) mmol/L BUN 15 (7.0-18.0) mg/dL Creatinine 0.9 (0.8-1.3) mg/dL Est Cr Clr Drug Dosing 87.31 mL/min Estimated GFR (MDRD) > 60.0 ml/min Glucose 138 H (74-106) mg/dL Calcium 8.0 L (8.5-10.1) mg/dL Phosphorus 3.6 (2.6-4.7) mg/dL Magnesium 2.4 (1.8-2.4) mg/dL Total Bilirubin 0.6 (0.2-1.0) mg/dL AST 38 H (15-37) IU/L ALT 62 (14-63) IU/L Alkaline Phosphatase 61 (46-116) U/L Total Protein 7.1 (6.4-8.2) g/dL Albumin 2.6 L (3.4-5.0) g/dL Globulin 4.5 H (2.6-4.0) g/dL Albumin/Globulin Ratio 0.6 L (0.9-1.6) Med Orders - Current: Current Medications Albuterol/Ipratropium (Combivent Respimat) 0 gm INH Q4HRRT [facility] Last Admin: 07/10/20 09:55 Dose: 1 puff Documented by: Benzonatate (Tessalon Perles) 200 mg PO TID PRN PRN Reason: Cough Last Admin: 07/10/20 08:12 Dose: 200 mg Documented by: Dexamethasone (Dexamethasone) 6 mg PO Q24H [facility] Last Admin: 07/09/20 13:58 Dose: 6 mg Documented by: Docusate Sodium (Colace) 100 mg PO BID PRN PRN Reason: Constipation Last Admin: 07/09/20 18:19 Dose: 100 mg Documented by: Enoxaparin Sodium (Lovenox) 40 mg SUBCUT Q24H [facility] Last Admin: 07/09/20 15:58 Dose: 40 mg Documented by: Guaifenesin/Codeine Phosphate (Robitussin Ac) 5 ml PO Q6H PRN PRN Reason: Cough Last Admin: 07/10/20 08:12 Dose: 5 ml Documented by: Levofloxacin/Dextrose 750 mg/ (Premix) 150 mls @ 100 mls/hr IV Q24H [facility] Last Admin: 07/09/20 10:29 Dose: 100 mls/hr Documented by: Lorazepam (Ativan) 1 mg IVPUSH Q6H PRN PRN Reason: Anxiety Last Admin: 07/09/20 18:16 Dose: 1 mg Documented by: Pantoprazole Sodium (Protonix) 40 mg PO DAILY [facility] Last Admin: 07/10/20 08:12 Dose: 40 mg Documented by: Sodium Chloride (Saline Flush) 10 ml FLUSH ASDIRECTED PRN PRN Reason: Keep Vein Open Last Admin: 07/06/20 21:31 Dose: 10 ml Documented by: Sodium Chloride (Saline Flush) 2.5 ml FLUSH ASDIRECTED PRN PRN Reason: Keep Vein Open Last Admin: 07/10/20 08:17 Dose: 2.5 ml Documented by: Discontinued Medications Acetaminophen (Tylenol) 650 mg PO NOW ONE Stop: 07/03/20 11:13 Last Admin: 07/03/20 11:17 Dose: 650 mg Documented by: Albuterol/Ipratropium (Combivent Respimat) 0 gm INH Q4H PRN PRN Reason: Dyspnea Albuterol/Ipratropium (Combivent Respimat) 0 gm INH Q4H [facility] Last Admin: 07/05/20 05:58 Dose: Not Given Documented by: Benzonatate (Tessalon Perles) 100 mg PO TID PRN PRN Reason: Cough Last Admin: 07/04/20 00:08 Dose: 100 mg Documented by: Dexamethasone (Decadron) 6 mg IVPUSH ONETIME ONE Stop: 07/03/20 12:37 Last Admin: 07/03/20 13:34 Dose: 6 mg Documented by: Furosemide (Lasix) 20 mg IVPUSH ONETIME ONE Stop: 07/08/20 11:11 Last Admin: 07/08/20 11:39 Dose: 20 mg Documented by: Furosemide (Lasix) 20 mg IVPUSH ONETIME ONE Stop: 07/09/20 13:27 Last Admin: 07/09/20 13:58 Dose: 20 mg Documented by: Furosemide (Lasix) 20 mg IVPUSH ONETIME ONE Stop: 07/10/20 11:07 Remdesivir 200 mg/ Sodium (Chloride) 250 mls @ 250 mls/hr IV ONETIME ONE Stop: 07/03/20 13:02 Last Admin: 07/03/20 14:41 Dose: Not Given Documented by: Remdesivir 200 mg/ Sodium (Chloride) 250 mls @ 250 mls/hr IV ONETIME ONE Stop: 07/03/20 14:44 Last Admin: 07/03/20 14:21 Dose: 250 mls/hr Documented by: Remdesivir 100 mg/ Sodium (Chloride) 100 mls @ 100 mls/hr IV Q24H [facility]ADY Stop: 07/07/20 14:59 Last Admin: 07/07/20 14:10 Dose: 100 mls/hr Documented by: Iodixanol (Visipaque 320) 100 ml IVPUSH ONETIME ONE Stop: 07/06/20 16:05 Last Admin: 07/06/20 16:05 Dose: 100 ml Documented by: Iopamidol (Isovue Multipack-370 (76%)) 100 ml IVPUSH ONETIME STA Stop: 07/06/20 16:01 Last Admin: 07/06/20 16:01 Dose: 100 ml Documented by: Iopamidol (Isovue Multipack-370 (76%)) 100 ml IVPUSH ONETIME ONE Stop: 07/08/20 12:59 Last Admin: 07/08/20 12:58 Dose: 100 ml Documented by: - Exam Quality Assessment: Supplemental Oxygen General: Alert Lungs: Normal Respiratory Effort, Crackles, Rales, Rub GI/Abdominal Exam: Normal Bowel Sounds, Soft, Non-Tender Extremities: Normal Inspection, Normal Range of Motion Skin: Warm, Dry - Patient Data Lab Results Last 24 hrs: Laboratory Results - last 24 hr 07/10/20 07/10/20 Range/Units 06:15 06:15 WBC 9.43 (4.0-11.0) K/uL RBC 4.75 (4.50-5.90) M/uL Hgb 14.7 (13.0-17.0) g/dL Hct 43.8 (38.0-50.0) % MCV 92.2 (80.0-98.0) fL MCH 30.9 (27.0-32.0) pg MCHC 33.6 (31.0-37.0) g/dL RDW Std Deviation 43.8 (28.0-62.0) fl RDW Coeff of Flakita 13 (11.0-15.0) % Plt Count 243 (150-400) K/uL MPV 11.60 (7.40-12.00) fL Add Manual Diff YES Neutrophils % (Manual) 85 H (48.0-80.0) % Band Neutrophils % 4 % Lymphocytes % (Manual) 10 L (16.0-40.0) % Monocytes % (Manual) 1 (0.0-15.0) % Nucleated RBC % 0.0 /100WBC Absolute Seg Neuts 8.0 H (1.4-5.7) Band Neutrophils # 0.4 Lymphocytes # (Manual) 0.9 (0.6-2.4) Monocytes # (Manual) 0.1 (0.0-0.8) Nucleated RBCs # 0 K/uL Sodium 142 (136-148) mmol/L Potassium 4.1 (3.5-5.1) mmol/L Chloride 106 (98-107) mmol/L Carbon Dioxide 29.6 (21.0-32.0) mmol/L BUN 15 (7.0-18.0) mg/dL Creatinine 0.9 (0.8-1.3) mg/dL Est Cr Clr Drug Dosing 87.31 mL/min Estimated GFR (MDRD) > 60.0 ml/min Glucose 138 H (74-106) mg/dL Calcium 8.0 L (8.5-10.1) mg/dL Phosphorus 3.6 (2.6-4.7) mg/dL Magnesium 2.4 (1.8-2.4) mg/dL Total Bilirubin 0.6 (0.2-1.0) mg/dL AST 38 H (15-37) IU/L ALT 62 (14-63) IU/L Alkaline Phosphatase 61 (46-116) U/L Total Protein 7.1 (6.4-8.2) g/dL Albumin 2.6 L (3.4-5.0) g/dL Globulin 4.5 H (2.6-4.0) g/dL Albumin/Globulin Ratio 0.6 L (0.9-1.6) Result Diagrams: 07/10/20 06:15 07/10/20 06:15 Sepsis Event Note - Evaluation Sepsis Screening Result: No Definite Risk - Focused Exam Vital Signs: Vital Signs Temp Pulse Resp BP Pulse Ox Pulse Ox Pulse Ox 07/10/20 09:58 89 L 07/10/20 09:33 92 L 07/10/20 08:20 95 07/10/20 08:10 86 L 07/10/20 07:57 36.4 C 103 H 25 H 134/84 91 L 07/10/20 04:03 35.9 C L 85 25 H 134/81 91 L 07/10/20 01:59 24 H 96 - Problem List & Annotations (1) Acute hypoxemic respiratory failure SNOMED Code(s): 131535490 Code(s): J96.01 - ACUTE RESPIRATORY FAILURE WITH HYPOXIA Status: Acute Current Visit: Yes (2) COVID-19 SNOMED Code(s): 447021941 Code(s): U07.1 - COVID-19 Status: Acute Current Visit: Yes - Problem List Review Problem List Initiated/Reviewed/Updated: Yes - My Orders Last 24 Hours: My Active Orders 07/10/20 12:32 Transfer Patient (Change bed) [ADT] Routine - Plan Plan:: Assessment and Plan: 1. Acute hypoxic respiratory failure secondary to COVID-19 pneumonia: - Patient tolerated BiPAP for most of the night. Currently on HHF this AM: 50L, 86% FiO2 and 94% O2 saturation. Continue Combivent q4 YADY, dexamethasone 6 mg qd, Levaquin, incentive spirometer and acapella. Remdesivir 5-day course is complete. Will continue BiPAP overnight, lasix as needed to keep net fluid balance negative patient is requiring higher level of care do will be transferred to ICU. - Repeat CT angio showed poor enhancement of pulmonary arteries. No central pulmonary emboli. Diffuse b/l ground-glass opacities without significant change from prior CT. 2. DVT prophylaxis: - Lovenox 40 mg subcut qd. 3. GI prophylaxis: - Pantoprazole 40 mg qd.
[2020-07-10] MEDS: Enoxaparin 40 MG/0.4 ML Syringe SUBCUT SCH (16:12)
--- NOTE | 2020-07-10 17:14 | PN ---
THC Physician - Brief Progress [id number]/07/2021 17:13[facility] Gerry Malone, [place] - MWN (SABINAN) - [facility]ID MOONEYDate of Service 07/10/2020 17:13HPI/E vents of Note eICU Admission [id number] admitted for respiratory failure attributed to COVID pneumonia. History obtained from review of EMR.Camera exam: Laying in bed on BPAP. Vitals monitor reviewed. eICU Impression and Recommendations:Acute hypoxemic respiratory failure attributed to COVID pneumoniaIsol ation precautions per local policyDexamethasone 6mg daily for 10 days, status post 5 days of remdesiv irContinue oxygen supplementation. If NIV is used, suggest CPAP over BPAP (unless patient is hypercap jim or has high work of breathing) to minimize patient self-inflicted lung injuryAwake proning as nate eratedSuggest targeting a neutral to negative net fluid balance as tolerated hemodynamicallyDVT and G I prophylaxis as appropriate.Thank you for allowing us to participate in the care of this patient.Unl ess otherwise specified, defer implementation of above recommendations to discretion of bedside provi saba. Please do not hesitate to contact the eICU service for questions, clarification, or assistance w ith implementation.The above note transcribed with the assistance of dictation software. Please excus e any errors.Interventions Major-Respiratory failure - evaluation and management
[2020-07-11] MEDS: Albuterol/Ipratropium 4 GM Inhalation Spray INH SCH ×6 (02:19→22:51)
[2020-07-11] MEDS: Benzonatate 100 MG Cap PO PRN ×3 (02:19→18:48)
[2020-07-11 06:11] LABS: BLOOD UREA NITROGEN,BUN 17 mg/dL (7.0-18.0); CARBON DIOXIDE,CO2 26.4 mmol/L (21.0-32.0); CHLORIDE,CL 103 mmol/L (98-107); GLUCOSE RANDOM 156 mg/dL (74-106); SODIUM,NA 139 mmol/L (136-148)
[2020-07-11] MEDS: Pantoprazole 40 MG Tab.CR PO SCH (09:00)
[2020-07-11] MEDS: Codeine/guaiFENesin 10-100 MG/5 ML Syrup 5 ML Cup PO PRN ×3 (09:00→22:51)
[2020-07-11] MEDS: Levofloxacin/Dextrose 5%-Water 750 MG in Premix Bag 1 BAG IV SCH (10:37)
[2020-07-11] MEDS: Dexamethasone 4 MG Tab PO SCH (12:22)
--- NOTE | 2020-07-11 13:46 | PCM.PN ---
<Naveed Bird - Last Filed: 07/11/20 13:49> - General Info Date of Service: 07/11/20 Subjective Update: Patient denies shortness of breath, chest pain, dizziness, lightheadedness this morning. Patient states he feels better after he coughs up phlegm. - Review of Systems General: Denies: Fever, Chills Pulmonary: Reports: Cough, Sputum. Denies: Shortness of Breath Cardiovascular: Denies: Chest Pain, Lightheadedness Gastrointestinal: Denies: Abdominal Pain Neurological: Denies: Confusion, Dizziness Psychiatric: Denies: Confusion - Patient Data Vitals - Most Recent: Last Vital Signs Temp 97.7 F 07/11/20 12:00 Pulse 126 H 07/10/20 12:22 Resp 15 07/11/20 13:00 BP 114/64 07/11/20 13:00 Pulse Ox 87 L 07/11/20 13:00 Weight - Most Recent: 90.265 kg I&O - Last 24 Hours: Intake & Output 07/10/20 07/11/20 07/11/20 22:59 06:59 14:59 Intake Total 400 500 150 Output Total 1550 500 Balance -1150 0 150 Lab Results Last 24 Hours: Laboratory Results - last 24 hr 07/11/20 07/11/20 Range/Units 05:07 05:07 WBC 9.86 (4.0-11.0) K/uL RBC 4.60 (4.50-5.90) M/uL Hgb 14.4 (13.0-17.0) g/dL Hct 42.2 (38.0-50.0) % MCV 91.7 (80.0-98.0) fL MCH 31.3 (27.0-32.0) pg MCHC 34.1 (31.0-37.0) g/dL RDW Std Deviation 43.5 (28.0-62.0) fl RDW Coeff of Flakita 13 (11.0-15.0) % Plt Count 256 (150-400) K/uL MPV 11.60 (7.40-12.00) fL Add Manual Diff YES Neutrophils % (Manual) 82 H (48.0-80.0) % Band Neutrophils % 1 % Lymphocytes % (Manual) 10 L (16.0-40.0) % Monocytes % (Manual) 7 (0.0-15.0) % Nucleated RBC % 0.0 /100WBC Absolute Seg Neuts 8.1 H (1.4-5.7) Band Neutrophils # 0.1 Lymphocytes # (Manual) 1.0 (0.6-2.4) Monocytes # (Manual) 0.7 (0.0-0.8) Nucleated RBCs # 0 K/uL Sodium 139 (136-148) mmol/L Potassium 4.0 (3.5-5.1) mmol/L Chloride 103 (98-107) mmol/L Carbon Dioxide 26.4 (21.0-32.0) mmol/L BUN 17 (7.0-18.0) mg/dL Creatinine 0.9 (0.8-1.3) mg/dL Est Cr Clr Drug Dosing 87.31 mL/min Estimated GFR (MDRD) > 60.0 ml/min Glucose 156 H (74-106) mg/dL Calcium 8.7 (8.5-10.1) mg/dL Total Bilirubin 0.6 (0.2-1.0) mg/dL AST 36 (15-37) IU/L ALT 50 (14-63) IU/L Alkaline Phosphatase 65 (46-116) U/L Total Protein 7.1 (6.4-8.2) g/dL Albumin 2.5 L (3.4-5.0) g/dL Globulin 4.6 H (2.6-4.0) g/dL Albumin/Globulin Ratio 0.5 L (0.9-1.6) Med Orders - Current: Current Medications Albuterol/Ipratropium (Combivent Respimat) 0 gm INH Q4HRRT [facility] Last Admin: 07/11/20 09:42 Dose: 1 puff Documented by: Benzonatate (Tessalon Perles) 200 mg PO TID PRN PRN Reason: Cough Last Admin: 07/11/20 10:45 Dose: 200 mg Documented by: Dexamethasone (Dexamethasone) 6 mg PO Q24H [facility] Last Admin: 07/11/20 12:22 Dose: 6 mg Documented by: Docusate Sodium (Colace) 100 mg PO BID PRN PRN Reason: Constipation Last Admin: 07/09/20 18:19 Dose: 100 mg Documented by: Enoxaparin Sodium (Lovenox) 40 mg SUBCUT Q24H [facility] Last Admin: 07/10/20 16:12 Dose: 40 mg Documented by: Guaifenesin/Codeine Phosphate (Robitussin Ac) 5 ml PO Q6H PRN PRN Reason: Cough Last Admin: 07/11/20 09:00 Dose: 5 ml Documented by: Levofloxacin/Dextrose 750 mg/ (Premix) 150 mls @ 100 mls/hr IV Q24H [facility] Last Admin: 07/11/20 10:37 Dose: 100 mls/hr Documented by: Lorazepam (Ativan) 1 mg IVPUSH Q6H PRN PRN Reason: Anxiety Last Admin: 07/09/20 18:16 Dose: 1 mg Documented by: Pantoprazole Sodium (Protonix) 40 mg PO DAILY [facility] Last Admin: 07/11/20 09:00 Dose: 40 mg Documented by: Sodium Chloride (Saline Flush) 10 ml FLUSH ASDIRECTED PRN PRN Reason: Keep Vein Open Last Admin: 07/06/20 21:31 Dose: 10 ml Documented by: Sodium Chloride (Saline Flush) 2.5 ml FLUSH ASDIRECTED PRN PRN Reason: Keep Vein Open Last Admin: 07/10/20 11:04 Dose: 2.5 ml Documented by: Discontinued Medications Acetaminophen (Tylenol) 650 mg PO NOW ONE Stop: 07/03/20 11:13 Last Admin: 07/03/20 11:17 Dose: 650 mg Documented by: Albuterol/Ipratropium (Combivent Respimat) 0 gm INH Q4H PRN PRN Reason: Dyspnea Albuterol/Ipratropium (Combivent Respimat) 0 gm INH Q4H [facility] Last Admin: 07/05/20 05:58 Dose: Not Given Documented by: Benzonatate (Tessalon Perles) 100 mg PO TID PRN PRN Reason: Cough Last Admin: 07/04/20 00:08 Dose: 100 mg Documented by: Dexamethasone (Decadron) 6 mg IVPUSH ONETIME ONE Stop: 07/03/20 12:37 Last Admin: 07/03/20 13:34 Dose: 6 mg Documented by: Furosemide (Lasix) 20 mg IVPUSH ONETIME ONE Stop: 07/08/20 11:11 Last Admin: 07/08/20 11:39 Dose: 20 mg Documented by: Furosemide (Lasix) 20 mg IVPUSH ONETIME ONE Stop: 07/09/20 13:27 Last Admin: 07/09/20 13:58 Dose: 20 mg Documented by: Furosemide (Lasix) 20 mg IVPUSH ONETIME ONE Stop: 07/10/20 11:07 Last Admin: 07/10/20 12:42 Dose: 20 mg Documented by: Remdesivir 200 mg/ Sodium (Chloride) 250 mls @ 250 mls/hr IV ONETIME ONE Stop: 07/03/20 13:02 Last Admin: 07/03/20 14:41 Dose: Not Given Documented by: Remdesivir 200 mg/ Sodium (Chloride) 250 mls @ 250 mls/hr IV ONETIME ONE Stop: 07/03/20 14:44 Last Admin: 07/03/20 14:21 Dose: 250 mls/hr Documented by: Remdesivir 100 mg/ Sodium (Chloride) 100 mls @ 100 mls/hr IV Q24H [facility] Stop: 07/07/20 14:59 Last Admin: 07/07/20 14:10 Dose: 100 mls/hr Documented by: Iodixanol (Visipaque 320) 100 ml IVPUSH ONETIME ONE Stop: 07/06/20 16:05 Last Admin: 07/06/20 16:05 Dose: 100 ml Documented by: Iopamidol (Isovue Multipack-370 (76%)) 100 ml IVPUSH ONETIME STA Stop: 07/06/20 16:01 Last Admin: 07/06/20 16:01 Dose: 100 ml Documented by: Iopamidol (Isovue Multipack-370 (76%)) 100 ml IVPUSH ONETIME ONE Stop: 07/08/20 12:59 Last Admin: 07/08/20 12:58 Dose: 100 ml Documented by: - Exam Quality Assessment: Supplemental Oxygen General: Alert, Oriented Lungs: Crackles, Wheezing Cardiovascular: Regular Rate, Regular Rhythm GI/Abdominal Exam: Normal Bowel Sounds Psy/Mental Status: Alert - Patient Data Lab Results Last 24 hrs: Laboratory Results - last 24 hr 07/11/20 07/11/20 Range/Units 05:07 05:07 WBC 9.86 (4.0-11.0) K/uL RBC 4.60 (4.50-5.90) M/uL Hgb 14.4 (13.0-17.0) g/dL Hct 42.2 (38.0-50.0) % MCV 91.7 (80.0-98.0) fL MCH 31.3 (27.0-32.0) pg MCHC 34.1 (31.0-37.0) g/dL RDW Std Deviation 43.5 (28.0-62.0) fl RDW Coeff of Flakita 13 (11.0-15.0) % Plt Count 256 (150-400) K/uL MPV 11.60 (7.40-12.00) fL Add Manual Diff YES Neutrophils % (Manual) 82 H (48.0-80.0) % Band Neutrophils % 1 % Lymphocytes % (Manual) 10 L (16.0-40.0) % Monocytes % (Manual) 7 (0.0-15.0) % Nucleated RBC % 0.0 /100WBC Absolute Seg Neuts 8.1 H (1.4-5.7) Band Neutrophils # 0.1 Lymphocytes # (Manual) 1.0 (0.6-2.4) Monocytes # (Manual) 0.7 (0.0-0.8) Nucleated RBCs # 0 K/uL Sodium 139 (136-148) mmol/L Potassium 4.0 (3.5-5.1) mmol/L Chloride 103 (98-107) mmol/L Carbon Dioxide 26.4 (21.0-32.0) mmol/L BUN 17 (7.0-18.0) mg/dL Creatinine 0.9 (0.8-1.3) mg/dL Est Cr Clr Drug Dosing 87.31 mL/min Estimated GFR (MDRD) > 60.0 ml/min Glucose 156 H (74-106) mg/dL Calcium 8.7 (8.5-10.1) mg/dL Total Bilirubin 0.6 (0.2-1.0) mg/dL AST 36 (15-37) IU/L ALT 50 (14-63) IU/L Alkaline Phosphatase 65 (46-116) U/L Total Protein 7.1 (6.4-8.2) g/dL Albumin 2.5 L (3.4-5.0) g/dL Globulin 4.6 H (2.6-4.0) g/dL Albumin/Globulin Ratio 0.5 L (0.9-1.6) Result Diagrams: 07/11/20 05:07 07/11/20 05:07 Sepsis Event Note - Evaluation Sepsis Screening Result: No Definite Risk - Focused Exam Vital Signs: Vital Signs Temp Resp BP BP Pulse Ox 07/11/20 13:00 15 114/64 87 L 07/11/20 12:00 97.7 F 18 121/78 90 L 07/11/20 11:00 22 H 126/83 88 L 07/11/20 10:00 18 118/77 84 L 07/11/20 09:30 28 H 83 L 07/11/20 09:00 25 H 123/78 86 L 07/11/20 08:00 97.5 F 20 127/75 88 L 07/11/20 07:00 27 H 110/51 L 89 L 07/11/20 06:00 21 H 97/52 L 88 L 07/11/20 05:00 26 H 118/65 86 L 07/11/20 04:00 23 H 98/53 L 89 L 07/11/20 03:00 97 F 24 H 102/57 L 88 L 07/11/20 02:00 22 H 119/73 92 L - Problem List & Annotations (1) Acute hypoxemic respiratory failure SNOMED Code(s): 946390057 Code(s): J96.01 - ACUTE RESPIRATORY FAILURE WITH HYPOXIA Status: Acute Current Visit: Yes (2) COVID-19 SNOMED Code(s): 530919226 Code(s): U07.1 - COVID-19 Status: Acute Current Visit: Yes (3) Hypoxia SNOMED Code(s): 707324226 Code(s): R09.02 - HYPOXEMIA Status: Acute Current Visit: Yes - Problem List Review Problem List Initiated/Reviewed/Updated: Yes - My Orders Last 24 Hours: My Active Orders 07/11/20 11:41 Chest Physiotherapy [RT Chest Physiotherapy] [RC] ASDIRECTED - Plan Plan:: Assessment and Plan: 1. Acute hypoxic respiratory failure secondary to COVID-19 pneumonia: - Patient switched to CPAP, (8, 85%fio2) this morning due to low oxygen saturations with HHF. Will wean back to HHF per 02 saturations. Chest physiotherapy ordered. Continue Combivent q4 [facility], dexamethasone 6 mg qd, Levaquin, incentive spirometer and acapella. Remdesivir 5-day course is complete. Will continue BiPAP overnight, lasix as needed 2. DVT prophylaxis: - Lovenox 40 mg subcut qd. 3. GI prophylaxis: - Pantoprazole 40 mg qd. <Jagjit aTylor - Last Filed: 07/13/20 13:21> - Patient Data Vitals - Most Recent: Last Vital Signs Temp 36.3 C 07/13/20 08:00 Pulse 126 H 07/10/20 12:22 Resp 20 07/13/20 12:00 BP 101/51 L 07/13/20 12:00 Pulse Ox 90 L 07/13/20 12:00 I&O - Last 24 Hours: Intake & Output 07/12/20 07/13/20 07/13/20 22:59 06:59 14:59 Intake Total 700 600 150 Output Total 1100 Balance 700 -500 150 Lab Results Last 24 Hours: Laboratory Results - last 24 hr 07/13/20 07/13/20 Range/Units 05:40 05:40 WBC 11.49 H (4.0-11.0) K/uL RBC 4.60 (4.50-5.90) M/uL Hgb 14.2 (13.0-17.0) g/dL Hct 42.6 (38.0-50.0) % MCV 92.6 (80.0-98.0) fL MCH 30.9 (27.0-32.0) pg MCHC 33.3 (31.0-37.0) g/dL RDW Std Deviation 45.0 (28.0-62.0) fl RDW Coeff of Flakita 13 (11.0-15.0) % Plt Count 275 (150-400) K/uL MPV 11.00 (7.40-12.00) fL Neut % (Auto) 85.4 H (48.0-80.0) % Lymph % (Auto) 8.4 L (16.0-40.0) % [place] % (Auto) 5.8 (0.0-15.0) % Eos % (Auto) 0.3 (0.0-7.0) % Baso % (Auto) 0.1 (0.0-1.5) % Neut # (Auto) 9.8 H (1.4-5.7) K/uL Lymph # (Auto) 1.0 (0.6-2.4) K/uL [place] # (Auto) 0.7 (0.0-0.8) K/uL Eos # (Auto) 0.0 (0.0-0.7) K/uL Baso # (Auto) 0.0 (0.0-0.1) K/uL Nucleated RBC % 0.0 /100WBC Nucleated RBCs # 0 K/uL Sodium 139 (136-148) mmol/L Potassium 4.0 (3.5-5.1) mmol/L Chloride 106 (98-107) mmol/L Carbon Dioxide 28.1 (21.0-32.0) mmol/L BUN 19 H (7.0-18.0) mg/dL Creatinine 0.9 (0.8-1.3) mg/dL Est Cr Clr Drug Dosing 87.31 mL/min Estimated GFR (MDRD) > 60.0 ml/min Glucose 146 H (74-106) mg/dL Calcium 8.1 L (8.5-10.1) mg/dL Magnesium 2.3 (1.8-2.4) mg/dL Vitamin D 25-Hydroxy 9.4 L (30.0-100.0) ng/mL Med Orders - Current: Current Medications Albuterol/Ipratropium (Combivent Respimat) 0 gm INH Q4HRRT [facility] Last Admin: 07/13/20 10:48 Dose: 1 puff Documented by: Benzonatate (Tessalon Perles) 200 mg PO TID PRN PRN Reason: Cough Last Admin: 07/13/20 08:48 Dose: 200 mg Documented by: Dexamethasone (Dexamethasone 4 Mg Tab) 6 mg PO Q24H [facility] Last Admin: 07/13/20 11:00 Dose: 6 mg Documented by: Docusate Sodium (Colace) 100 mg PO BID PRN PRN Reason: Constipation Last Admin: 07/09/20 18:19 Dose: 100 mg Documented by: Enoxaparin Sodium (Lovenox) 40 mg SUBCUT Q24H [facility] Last Admin: 07/12/20 15:25 Dose: 40 mg Documented by: Guaifenesin/Codeine Phosphate (Robitussin Ac) 5 ml PO Q6H PRN PRN Reason: Cough Last Admin: 07/13/20 08:48 Dose: 5 ml Documented by: Levofloxacin/Dextrose 750 mg/ (Premix) 150 mls @ 100 mls/hr IV Q24H [facility] Last Admin: 07/13/20 10:49 Dose: 100 mls/hr Documented by: Lorazepam (Ativan) 1 mg IVPUSH Q6H PRN PRN Reason: Anxiety Last Admin: 07/09/20 18:16 Dose: 1 mg Documented by: Pantoprazole Sodium (Pantoprazole 40 Mg Tab.Cr) 40 mg PO DAILY [facility] Last Admin: 07/13/20 08:48 Dose: 40 mg Documented by: Sodium Chloride (Saline Flush) 10 ml FLUSH ASDIRECTED PRN PRN Reason: Keep Vein Open Last Admin: 07/06/20 21:31 Dose: 10 ml Documented by: Sodium Chloride (Saline Flush) 2.5 ml FLUSH ASDIRECTED PRN PRN Reason: Keep Vein Open Last Admin: 07/10/20 11:04 Dose: 2.5 ml Documented by: Discontinued Medications Acetaminophen (Tylenol) 650 mg PO NOW ONE Stop: 07/03/20 11:13 Last Admin: 07/03/20 11:17 Dose: 650 mg Documented by: Albuterol/Ipratropium (Combivent Respimat) 0 gm INH Q4H PRN PRN Reason: Dyspnea Albuterol/Ipratropium (Combivent Respimat) 0 gm INH Q4H [facility] Last Admin: 07/05/20 05:58 Dose: Not Given Documented by: Benzonatate (Tessalon Perles) 100 mg PO TID PRN PRN Reason: Cough Last Admin: 07/04/20 00:08 Dose: 100 mg Documented by: Dexamethasone (Decadron) 6 mg IVPUSH ONETIME ONE Stop: 07/03/20 12:37 Last Admin: 07/03/20 13:34 Dose: 6 mg Documented by: Furosemide (Lasix) 20 mg IVPUSH ONETIME ONE Stop: 07/08/20 11:11 Last Admin: 07/08/20 11:39 Dose: 20 mg Documented by: Furosemide (Lasix) 20 mg IVPUSH ONETIME ONE Stop: 07/09/20 13:27 Last Admin: 07/09/20 13:58 Dose: 20 mg Documented by: Furosemide (Lasix) 20 mg IVPUSH ONETIME ONE Stop: 07/10/20 11:07 Last Admin: 07/10/20 12:42 Dose: 20 mg Documented by: Remdesivir 200 mg/ Sodium (Chloride) 250 mls @ 250 mls/hr IV ONETIME ONE Stop: 07/03/20 13:02 Last Admin: 07/03/20 14:41 Dose: Not Given Documented by: Remdesivir 200 mg/ Sodium (Chloride) 250 mls @ 250 mls/hr IV ONETIME ONE Stop: 07/03/20 14:44 Last Admin: 07/03/20 14:21 Dose: 250 mls/hr Documented by: Remdesivir 100 mg/ Sodium (Chloride) 100 mls @ 100 mls/hr IV Q24H [facility] Stop: 07/07/20 14:59 Last Admin: 07/07/20 14:10 Dose: 100 mls/hr Documented by: Iodixanol (Visipaque 320) 100 ml IVPUSH ONETIME ONE Stop: 07/06/20 16:05 Last Admin: 07/06/20 16:05 Dose: 100 ml Documented by: Iopamidol (Isovue Multipack-370 (76%)) 100 ml IVPUSH ONETIME STA Stop: 07/06/20 16:01 Last Admin: 07/06/20 16:01 Dose: 100 ml Documented by: Iopamidol (Isovue Multipack-370 (76%)) 100 ml IVPUSH ONETIME ONE Stop: 07/08/20 12:59 Last Admin: 07/08/20 12:58 Dose: 100 ml Documented by: - Patient Data Lab Results Last 24 hrs: Laboratory Results - last 24 hr 07/13/20 07/13/20 Range/Units 05:40 05:40 WBC 11.49 H (4.0-11.0) K/uL RBC 4.60 (4.50-5.90) M/uL Hgb 14.2 (13.0-17.0) g/dL Hct 42.6 (38.0-50.0) % MCV 92.6 (80.0-98.0) fL MCH 30.9 (27.0-32.0) pg MCHC 33.3 (31.0-37.0) g/dL RDW Std Deviation 45.0 (28.0-62.0) fl RDW Coeff of Flakita 13 (11.0-15.0) % Plt Count 275 (150-400) K/uL MPV 11.00 (7.40-12.00) fL Neut % (Auto) 85.4 H (48.0-80.0) % Lymph % (Auto) 8.4 L (16.0-40.0) % [place] % (Auto) 5.8 (0.0-15.0) % Eos % (Auto) 0.3 (0.0-7.0) % Baso % (Auto) 0.1 (0.0-1.5) % Neut # (Auto) 9.8 H (1.4-5.7) K/uL Lymph # (Auto) 1.0 (0.6-2.4) K/uL [place] # (Auto) 0.7 (0.0-0.8) K/uL Eos # (Auto) 0.0 (0.0-0.7) K/uL Baso # (Auto) 0.0 (0.0-0.1) K/uL Nucleated RBC % 0.0 /100WBC Nucleated RBCs # 0 K/uL Sodium 139 (136-148) mmol/L Potassium 4.0 (3.5-5.1) mmol/L Chloride 106 (98-107) mmol/L Carbon Dioxide 28.1 (21.0-32.0) mmol/L BUN 19 H (7.0-18.0) mg/dL Creatinine 0.9 (0.8-1.3) mg/dL Est Cr Clr Drug Dosing 87.31 mL/min Estimated GFR (MDRD) > 60.0 ml/min Glucose 146 H (74-106) mg/dL Calcium 8.1 L (8.5-10.1) mg/dL Magnesium 2.3 (1.8-2.4) mg/dL Vitamin D 25-Hydroxy 9.4 L (30.0-100.0) ng/mL Result Diagrams: 07/13/20 05:40 07/13/20 05:40 Sepsis Event Note - Focused Exam Vital Signs: Vital Signs Temp Resp BP Pulse Ox Pulse Ox 07/13/20 12:00 20 101/51 L 90 L 07/13/20 11:00 15 112/58 L 90 L 07/13/20 10:00 16 112/73 90 L 07/13/20 09:00 20 138/79 88 L 88 L 07/13/20 08:00 36.3 C 22 H 124/67 92 L 07/13/20 07:00 23 H 107/50 L 91 L 07/13/20 06:00 25 H 107/54 L 90 L 07/13/20 05:00 18 126/79 93 L 07/13/20 04:00 36.0 C L 19 120/68 92 L 07/13/20 03:00 14 111/77 95 07/13/20 02:00 16 113/69 92 L - Problem List & Annotations (1) Acute hypoxemic respiratory failure SNOMED Code(s): 613678992 Code(s): J96.01 - ACUTE RESPIRATORY FAILURE WITH HYPOXIA Status: Acute Current Visit: Yes (2) COVID-19 SNOMED Code(s): 146404451 Code(s): U07.1 - COVID-19 Status: Acute Current Visit: Yes - Plan Plan:: I have seen and evaluated the patient. I have discussed findings and treatment plan with resident. I agree with the assessment and plan in the following note.
[2020-07-11] MEDS: Enoxaparin 40 MG/0.4 ML Syringe SUBCUT SCH (16:15)
[2020-07-12 07:13] LABS: BLOOD UREA NITROGEN,BUN 19 mg/dL (7.0-18.0); CARBON DIOXIDE,CO2 25.8 mmol/L (21.0-32.0); CHLORIDE,CL 104 mmol/L (98-107); GLUCOSE RANDOM 158 mg/dL (74-106); POTASSIUM,K 4.2 mmol/L (3.5-5.1); SODIUM,NA 138 mmol/L (136-148)
[2020-07-12] MEDS: Albuterol/Ipratropium 4 GM Inhalation Spray INH SCH ×5 (09:28→22:42)
[2020-07-12] MEDS: Pantoprazole 40 MG Tab.CR PO SCH (09:46)
[2020-07-12] MEDS: Levofloxacin/Dextrose 5%-Water 750 MG in Premix Bag 1 BAG IV SCH (11:24)
[2020-07-12] MEDS: Dexamethasone 4 MG Tab PO SCH (11:25)
[2020-07-12] MEDS: Enoxaparin 40 MG/0.4 ML Syringe SUBCUT SCH (15:25)
--- NOTE | 2020-07-12 16:25 | PCM.PN ---
- General Info Date of Service: 07/12/20 Subjective Update: Patient states he feels comfortable, denies chest pain, shortness of breath, fever, chills. States mild intermittent cough. - Review of Systems General: Denies: Fever, Weakness Pulmonary: Reports: Cough. Denies: Shortness of Breath, Pleuritic Chest Pain Cardiovascular: Denies: Chest Pain Gastrointestinal: Denies: Abdominal Pain Psychiatric: Denies: Confusion - Patient Data Vitals - Most Recent: Last Vital Signs Temp 97.9 F 07/12/20 12:47 Pulse 126 H 07/10/20 12:22 Resp 24 H 07/12/20 15:47 BP 132/81 07/12/20 15:47 Pulse Ox 85 L 07/12/20 15:47 Weight - Most Recent: 196 lb 3 oz I&O - Last 24 Hours: Intake & Output 07/12/20 07/12/20 07/12/20 06:59 14:59 22:59 Intake Total 700 Balance 700 Lab Results Last 24 Hours: Laboratory Results - last 24 hr 07/12/20 07/12/20 Range/Units 05:23 05:23 WBC 10.88 (4.0-11.0) K/uL RBC 4.69 (4.50-5.90) M/uL Hgb 14.6 (13.0-17.0) g/dL Hct 43.1 (38.0-50.0) % MCV 91.9 (80.0-98.0) fL MCH 31.1 (27.0-32.0) pg MCHC 33.9 (31.0-37.0) g/dL RDW Std Deviation 44.1 (28.0-62.0) fl RDW Coeff of Flakita 13 (11.0-15.0) % Plt Count 272 (150-400) K/uL MPV 11.40 (7.40-12.00) fL Neut % (Auto) 86.9 H (48.0-80.0) % Lymph % (Auto) 7.5 L (16.0-40.0) % [place] % (Auto) 5.0 (0.0-15.0) % Eos % (Auto) 0.5 (0.0-7.0) % Baso % (Auto) 0.1 (0.0-1.5) % Neut # (Auto) 9.5 H (1.4-5.7) K/uL Lymph # (Auto) 0.8 (0.6-2.4) K/uL [place] # (Auto) 0.5 (0.0-0.8) K/uL Eos # (Auto) 0.1 (0.0-0.7) K/uL Baso # (Auto) 0.0 (0.0-0.1) K/uL Nucleated RBC % 0.0 /100WBC Nucleated RBCs # 0 K/uL Sodium 138 (136-148) mmol/L Potassium 4.2 (3.5-5.1) mmol/L Chloride 104 (98-107) mmol/L Carbon Dioxide 25.8 (21.0-32.0) mmol/L BUN 19 H (7.0-18.0) mg/dL Creatinine 0.8 (0.8-1.3) mg/dL Est Cr Clr Drug Dosing 98.23 mL/min Estimated GFR (MDRD) > 60.0 ml/min Glucose 158 H (74-106) mg/dL Calcium 8.3 L (8.5-10.1) mg/dL Total Bilirubin 0.3 (0.2-1.0) mg/dL AST 24 (15-37) IU/L ALT 46 (14-63) IU/L Alkaline Phosphatase 69 (46-116) U/L Total Protein 7.2 (6.4-8.2) g/dL Albumin 2.5 L (3.4-5.0) g/dL Globulin 4.7 H (2.6-4.0) g/dL Albumin/Globulin Ratio 0.5 L (0.9-1.6) Med Orders - Current: Current Medications Albuterol/Ipratropium (Combivent Respimat) 0 gm INH Q4HRRT [facility] Last Admin: 07/12/20 13:43 Dose: 1 puff Documented by: Benzonatate (Tessalon Perles) 200 mg PO TID PRN PRN Reason: Cough Last Admin: 07/11/20 18:48 Dose: 200 mg Documented by: Dexamethasone (Dexamethasone) 6 mg PO Q24H [facility] Last Admin: 07/12/20 11:25 Dose: 6 mg Documented by: Docusate Sodium (Colace) 100 mg PO BID PRN PRN Reason: Constipation Last Admin: 07/09/20 18:19 Dose: 100 mg Documented by: Enoxaparin Sodium (Lovenox) 40 mg SUBCUT Q24H [facility] Last Admin: 07/12/20 15:25 Dose: 40 mg Documented by: Guaifenesin/Codeine Phosphate (Robitussin Ac) 5 ml PO Q6H PRN PRN Reason: Cough Last Admin: 07/11/20 22:51 Dose: 5 ml Documented by: Levofloxacin/Dextrose 750 mg/ (Premix) 150 mls @ 100 mls/hr IV Q24H [facility] Last Admin: 07/12/20 11:24 Dose: 100 mls/hr Documented by: Lorazepam (Ativan) 1 mg IVPUSH Q6H PRN PRN Reason: Anxiety Last Admin: 07/09/20 18:16 Dose: 1 mg Documented by: Pantoprazole Sodium (Protonix) 40 mg PO DAILY [facility] Last Admin: 07/12/20 09:46 Dose: 40 mg Documented by: Sodium Chloride (Saline Flush) 10 ml FLUSH ASDIRECTED PRN PRN Reason: Keep Vein Open Last Admin: 07/06/20 21:31 Dose: 10 ml Documented by: Sodium Chloride (Saline Flush) 2.5 ml FLUSH ASDIRECTED PRN PRN Reason: Keep Vein Open Last Admin: 07/10/20 11:04 Dose: 2.5 ml Documented by: Discontinued Medications Acetaminophen (Tylenol) 650 mg PO NOW ONE Stop: 07/03/20 11:13 Last Admin: 07/03/20 11:17 Dose: 650 mg Documented by: Albuterol/Ipratropium (Combivent Respimat) 0 gm INH Q4H PRN PRN Reason: Dyspnea Albuterol/Ipratropium (Combivent Respimat) 0 gm INH Q4H [facility] Last Admin: 07/05/20 05:58 Dose: Not Given Documented by: Benzonatate (Tessalon Perles) 100 mg PO TID PRN PRN Reason: Cough Last Admin: 07/04/20 00:08 Dose: 100 mg Documented by: Dexamethasone (Decadron) 6 mg IVPUSH ONETIME ONE Stop: 07/03/20 12:37 Last Admin: 07/03/20 13:34 Dose: 6 mg Documented by: Furosemide (Lasix) 20 mg IVPUSH ONETIME ONE Stop: 07/08/20 11:11 Last Admin: 07/08/20 11:39 Dose: 20 mg Documented by: Furosemide (Lasix) 20 mg IVPUSH ONETIME ONE Stop: 07/09/20 13:27 Last Admin: 07/09/20 13:58 Dose: 20 mg Documented by: Furosemide (Lasix) 20 mg IVPUSH ONETIME ONE Stop: 07/10/20 11:07 Last Admin: 07/10/20 12:42 Dose: 20 mg Documented by: Remdesivir 200 mg/ Sodium (Chloride) 250 mls @ 250 mls/hr IV ONETIME ONE Stop: 07/03/20 13:02 Last Admin: 07/03/20 14:41 Dose: Not Given Documented by: Remdesivir 200 mg/ Sodium (Chloride) 250 mls @ 250 mls/hr IV ONETIME ONE Stop: 07/03/20 14:44 Last Admin: 07/03/20 14:21 Dose: 250 mls/hr Documented by: Remdesivir 100 mg/ Sodium (Chloride) 100 mls @ 100 mls/hr IV Q24H [facility] Stop: 07/07/20 14:59 Last Admin: 07/07/20 14:10 Dose: 100 mls/hr Documented by: Iodixanol (Visipaque 320) 100 ml IVPUSH ONETIME ONE Stop: 07/06/20 16:05 Last Admin: 07/06/20 16:05 Dose: 100 ml Documented by: Iopamidol (Isovue Multipack-370 (76%)) 100 ml IVPUSH ONETIME STA Stop: 07/06/20 16:01 Last Admin: 07/06/20 16:01 Dose: 100 ml Documented by: Iopamidol (Isovue Multipack-370 (76%)) 100 ml IVPUSH ONETIME ONE Stop: 07/08/20 12:59 Last Admin: 07/08/20 12:58 Dose: 100 ml Documented by: - Exam Quality Assessment: Supplemental Oxygen (CPAP) General: Alert, Oriented Lungs: Clear to Auscultation, Crackles (FINE CRACKLES THROUGHOUT ) Cardiovascular: Regular Rate, Regular Rhythm Extremities: Normal Inspection Psy/Mental Status: Alert - Patient Data Lab Results Last 24 hrs: Laboratory Results - last 24 hr 07/12/20 07/12/20 Range/Units 05:23 05:23 WBC 10.88 (4.0-11.0) K/uL RBC 4.69 (4.50-5.90) M/uL Hgb 14.6 (13.0-17.0) g/dL Hct 43.1 (38.0-50.0) % MCV 91.9 (80.0-98.0) fL MCH 31.1 (27.0-32.0) pg MCHC 33.9 (31.0-37.0) g/dL RDW Std Deviation 44.1 (28.0-62.0) fl RDW Coeff of Flakita 13 (11.0-15.0) % Plt Count 272 (150-400) K/uL MPV 11.40 (7.40-12.00) fL Neut % (Auto) 86.9 H (48.0-80.0) % Lymph % (Auto) 7.5 L (16.0-40.0) % [place] % (Auto) 5.0 (0.0-15.0) % Eos % (Auto) 0.5 (0.0-7.0) % Baso % (Auto) 0.1 (0.0-1.5) % Neut # (Auto) 9.5 H (1.4-5.7) K/uL Lymph # (Auto) 0.8 (0.6-2.4) K/uL [place] # (Auto) 0.5 (0.0-0.8) K/uL Eos # (Auto) 0.1 (0.0-0.7) K/uL Baso # (Auto) 0.0 (0.0-0.1) K/uL Nucleated RBC % 0.0 /100WBC Nucleated RBCs # 0 K/uL Sodium 138 (136-148) mmol/L Potassium 4.2 (3.5-5.1) mmol/L Chloride 104 (98-107) mmol/L Carbon Dioxide 25.8 (21.0-32.0) mmol/L BUN 19 H (7.0-18.0) mg/dL Creatinine 0.8 (0.8-1.3) mg/dL Est Cr Clr Drug Dosing 98.23 mL/min Estimated GFR (MDRD) > 60.0 ml/min Glucose 158 H (74-106) mg/dL Calcium 8.3 L (8.5-10.1) mg/dL Total Bilirubin 0.3 (0.2-1.0) mg/dL AST 24 (15-37) IU/L ALT 46 (14-63) IU/L Alkaline Phosphatase 69 (46-116) U/L Total Protein 7.2 (6.4-8.2) g/dL Albumin 2.5 L (3.4-5.0) g/dL Globulin 4.7 H (2.6-4.0) g/dL Albumin/Globulin Ratio 0.5 L (0.9-1.6) Result Diagrams: 07/12/20 05:23 07/12/20 05:23 Sepsis Event Note - Evaluation Sepsis Screening Result: No Definite Risk - Focused Exam Vital Signs: Vital Signs Temp Resp BP Pulse Ox 07/12/20 15:47 24 H 132/81 85 L 07/12/20 14:47 20 131/86 90 L 07/12/20 13:56 13 89 L 07/12/20 13:47 34 H 123/85 78 L 07/12/20 12:47 97.9 F 25 H 133/81 92 L 07/12/20 11:47 26 H 124/72 90 L 07/12/20 10:47 22 H 117/59 L 93 L 07/12/20 10:21 26 H 91 L 07/12/20 09:57 97.4 F 32 H 129/78 85 L 07/12/20 08:47 29 H 119/78 87 L 07/12/20 07:48 27 H 115/70 89 L 07/12/20 06:47 23 H 103/61 90 L - Problem List & Annotations (1) Acute hypoxemic respiratory failure SNOMED Code(s): 800731017 Code(s): J96.01 - ACUTE RESPIRATORY FAILURE WITH HYPOXIA Status: Acute Current Visit: Yes (2) COVID-19 SNOMED Code(s): 317736117 Code(s): U07.1 - COVID-19 Status: Acute Current Visit: Yes (3) Hypoxia SNOMED Code(s): 515367315 Code(s): R09.02 - HYPOXEMIA Status: Acute Current Visit: Yes - Problem List Review Problem List Initiated/Reviewed/Updated: Yes - My Orders Last 24 Hours: My Active Orders 07/13/20 05:11 CBC WITH AUTO DIFF [HEME] AM CMP [COMPREHENSIVE METABOLIC PN,CMP] [CHEM] AM 07/14/20 05:11 CBC WITH AUTO DIFF [HEME] AM CMP [COMPREHENSIVE METABOLIC PN,CMP] [CHEM] AM - Plan Plan:: Assessment and Plan: 1. Acute hypoxic respiratory failure secondary to COVID-19 pneumonia: - Patient remains on CPAP, (50 FLOW, 90%fio2), current 02 saturations 85-91%. Chest physiotherapy ordered. Continue Combivent q4 [facility], dexamethasone 6 mg qd, Levaquin, incentive spirometer and acapella. Remdesivir 5-day course is complete. Robitussin and Tessalon pearls PRN for cough. Repeat AM labs. Titrate fi02 as tolerated. Continue Levofloxacin 2. DVT prophylaxis: - Lovenox 40 mg subcut qd.
[2020-07-12] MEDS: Codeine/guaiFENesin 10-100 MG/5 ML Syrup 5 ML Cup PO PRN (20:40)
[2020-07-13] MEDS: Albuterol/Ipratropium 4 GM Inhalation Spray INH SCH ×6 (01:50→22:00)
[2020-07-13 06:17] LABS: BLOOD UREA NITROGEN,BUN 19 mg/dL (7.0-18.0); CARBON DIOXIDE,CO2 28.1 mmol/L (21.0-32.0); CHLORIDE,CL 106 mmol/L (98-107); GLUCOSE RANDOM 146 mg/dL (74-106); SODIUM,NA 139 mmol/L (136-148)
[2020-07-13] MEDS: Pantoprazole 40 MG Tab.CR PO SCH (08:48)
[2020-07-13] MEDS: Benzonatate 100 MG Cap PO PRN ×2 (08:48→18:36)
[2020-07-13] MEDS: Cholecalciferol (Vitamin D3) 25 MCG Tab PO SCH (08:48)
[2020-07-13] MEDS: Codeine/guaiFENesin 10-100 MG/5 ML Syrup 5 ML Cup PO PRN ×2 (08:48→14:49)
--- NOTE | 2020-07-13 09:13 | PCM.PN ---
- General Info Date of Service: 07/13/20 Subjective Update: Patient states he feels fine today. Denies chest pain, shortness of breath, fever, chills, nausea, vomiting, abdominal pain. Patient states that he has been comfortable laying in prone position sleeping at nighttime. - Review of Systems General: Denies: Fever, Fatigue Pulmonary: Denies: Shortness of Breath Cardiovascular: Denies: Chest Pain Gastrointestinal: Denies: Abdominal Pain, Nausea Neurological: Denies: Confusion Psychiatric: Denies: Confusion - Patient Data Vitals - Most Recent: Last Vital Signs Temp 96.8 F L 07/13/20 04:00 Pulse 126 H 07/10/20 12:22 Resp 23 H 07/13/20 07:00 BP 107/50 L 07/13/20 07:00 Pulse Ox 91 L 07/13/20 07:00 Weight - Most Recent: 196 lb 2 oz I&O - Last 24 Hours: Intake & Output 07/12/20 07/13/20 07/13/20 22:59 06:59 14:59 Intake Total 700 600 Output Total 1100 Balance 700 -500 Lab Results Last 24 Hours: Laboratory Results - last 24 hr 07/13/20 07/13/20 Range/Units 05:40 05:40 WBC 11.49 H (4.0-11.0) K/uL RBC 4.60 (4.50-5.90) M/uL Hgb 14.2 (13.0-17.0) g/dL Hct 42.6 (38.0-50.0) % MCV 92.6 (80.0-98.0) fL MCH 30.9 (27.0-32.0) pg MCHC 33.3 (31.0-37.0) g/dL RDW Std Deviation 45.0 (28.0-62.0) fl RDW Coeff of Flakita 13 (11.0-15.0) % Plt Count 275 (150-400) K/uL MPV 11.00 (7.40-12.00) fL Neut % (Auto) 85.4 H (48.0-80.0) % Lymph % (Auto) 8.4 L (16.0-40.0) % [place] % (Auto) 5.8 (0.0-15.0) % Eos % (Auto) 0.3 (0.0-7.0) % Baso % (Auto) 0.1 (0.0-1.5) % Neut # (Auto) 9.8 H (1.4-5.7) K/uL Lymph # (Auto) 1.0 (0.6-2.4) K/uL [place] # (Auto) 0.7 (0.0-0.8) K/uL Eos # (Auto) 0.0 (0.0-0.7) K/uL Baso # (Auto) 0.0 (0.0-0.1) K/uL Nucleated RBC % 0.0 /100WBC Nucleated RBCs # 0 K/uL Sodium 139 (136-148) mmol/L Potassium 4.0 (3.5-5.1) mmol/L Chloride 106 (98-107) mmol/L Carbon Dioxide 28.1 (21.0-32.0) mmol/L BUN 19 H (7.0-18.0) mg/dL Creatinine 0.9 (0.8-1.3) mg/dL Est Cr Clr Drug Dosing 87.31 mL/min Estimated GFR (MDRD) > 60.0 ml/min Glucose 146 H (74-106) mg/dL Calcium 8.1 L (8.5-10.1) mg/dL Magnesium 2.3 (1.8-2.4) mg/dL Vitamin D 25-Hydroxy 9.4 L (30.0-100.0) ng/mL Med Orders - Current: Current Medications Albuterol/Ipratropium (Combivent Respimat) 0 gm INH Q4HRRT [facility] Last Admin: 07/13/20 06:02 Dose: 1 puff Documented by: Benzonatate (Tessalon Perles) 200 mg PO TID PRN PRN Reason: Cough Last Admin: 07/13/20 08:48 Dose: 200 mg Documented by: Dexamethasone (Dexamethasone 4 Mg Tab) 6 mg PO Q24H [facility] Last Admin: 07/12/20 11:25 Dose: 6 mg Documented by: Docusate Sodium (Colace) 100 mg PO BID PRN PRN Reason: Constipation Last Admin: 07/09/20 18:19 Dose: 100 mg Documented by: Enoxaparin Sodium (Lovenox) 40 mg SUBCUT Q24H [facility] Last Admin: 07/12/20 15:25 Dose: 40 mg Documented by: Guaifenesin/Codeine Phosphate (Robitussin Ac) 5 ml PO Q6H PRN PRN Reason: Cough Last Admin: 07/13/20 08:48 Dose: 5 ml Documented by: Levofloxacin/Dextrose 750 mg/ (Premix) 150 mls @ 100 mls/hr IV Q24H [facility] Last Admin: 07/12/20 11:24 Dose: 100 mls/hr Documented by: Lorazepam (Ativan) 1 mg IVPUSH Q6H PRN PRN Reason: Anxiety Last Admin: 07/09/20 18:16 Dose: 1 mg Documented by: Pantoprazole Sodium (Pantoprazole 40 Mg Tab.Cr) 40 mg PO DAILY [facility] Last Admin: 07/13/20 08:48 Dose: 40 mg Documented by: Sodium Chloride (Saline Flush) 10 ml FLUSH ASDIRECTED PRN PRN Reason: Keep Vein Open Last Admin: 07/06/20 21:31 Dose: 10 ml Documented by: Sodium Chloride (Saline Flush) 2.5 ml FLUSH ASDIRECTED PRN PRN Reason: Keep Vein Open Last Admin: 07/10/20 11:04 Dose: 2.5 ml Documented by: Discontinued Medications Acetaminophen (Tylenol) 650 mg PO NOW ONE Stop: 07/03/20 11:13 Last Admin: 07/03/20 11:17 Dose: 650 mg Documented by: Albuterol/Ipratropium (Combivent Respimat) 0 gm INH Q4H PRN PRN Reason: Dyspnea Albuterol/Ipratropium (Combivent Respimat) 0 gm INH Q4H [facility] Last Admin: 07/05/20 05:58 Dose: Not Given Documented by: Benzonatate (Tessalon Perles) 100 mg PO TID PRN PRN Reason: Cough Last Admin: 07/04/20 00:08 Dose: 100 mg Documented by: Dexamethasone (Decadron) 6 mg IVPUSH ONETIME ONE Stop: 07/03/20 12:37 Last Admin: 07/03/20 13:34 Dose: 6 mg Documented by: Furosemide (Lasix) 20 mg IVPUSH ONETIME ONE Stop: 07/08/20 11:11 Last Admin: 07/08/20 11:39 Dose: 20 mg Documented by: Furosemide (Lasix) 20 mg IVPUSH ONETIME ONE Stop: 07/09/20 13:27 Last Admin: 07/09/20 13:58 Dose: 20 mg Documented by: Furosemide (Lasix) 20 mg IVPUSH ONETIME ONE Stop: 07/10/20 11:07 Last Admin: 07/10/20 12:42 Dose: 20 mg Documented by: Remdesivir 200 mg/ Sodium (Chloride) 250 mls @ 250 mls/hr IV ONETIME ONE Stop: 07/03/20 13:02 Last Admin: 07/03/20 14:41 Dose: Not Given Documented by: Remdesivir 200 mg/ Sodium (Chloride) 250 mls @ 250 mls/hr IV ONETIME ONE Stop: 07/03/20 14:44 Last Admin: 07/03/20 14:21 Dose: 250 mls/hr Documented by: Remdesivir 100 mg/ Sodium (Chloride) 100 mls @ 100 mls/hr IV Q24H [facility] Stop: 07/07/20 14:59 Last Admin: 07/07/20 14:10 Dose: 100 mls/hr Documented by: Iodixanol (Visipaque 320) 100 ml IVPUSH ONETIME ONE Stop: 07/06/20 16:05 Last Admin: 07/06/20 16:05 Dose: 100 ml Documented by: Iopamidol (Isovue Multipack-370 (76%)) 100 ml IVPUSH ONETIME STA Stop: 07/06/20 16:01 Last Admin: 07/06/20 16:01 Dose: 100 ml Documented by: Iopamidol (Isovue Multipack-370 (76%)) 100 ml IVPUSH ONETIME ONE Stop: 07/08/20 12:59 Last Admin: 07/08/20 12:58 Dose: 100 ml Documented by: - Exam Quality Assessment: Supplemental Oxygen (HHF) General: Alert, Oriented Lungs: Normal Respiratory Effort (With HHF) Cardiovascular: Regular Rate, Regular Rhythm, Rubs GI/Abdominal Exam: Soft Extremities: No Pedal Edema Psy/Mental Status: Alert - Patient Data Lab Results Last 24 hrs: Laboratory Results - last 24 hr 07/13/20 07/13/20 Range/Units 05:40 05:40 WBC 11.49 H (4.0-11.0) K/uL RBC 4.60 (4.50-5.90) M/uL Hgb 14.2 (13.0-17.0) g/dL Hct 42.6 (38.0-50.0) % MCV 92.6 (80.0-98.0) fL MCH 30.9 (27.0-32.0) pg MCHC 33.3 (31.0-37.0) g/dL RDW Std Deviation 45.0 (28.0-62.0) fl RDW Coeff of Flak[place] 13 (11.0-15.0) % Plt Count 275 (150-400) K/uL MPV 11.00 (7.40-12.00) fL Neut % (Auto) 85.4 H (48.0-80.0) % Lymph % (Auto) 8.4 L (16.0-40.0) % [place] % (Auto) 5.8 (0.0-15.0) % Eos % (Auto) 0.3 (0.0-7.0) % Baso % (Auto) 0.1 (0.0-1.5) % Neut # (Auto) 9.8 H (1.4-5.7) K/uL Lymph # (Auto) 1.0 (0.6-2.4) K/uL [place] # (Auto) 0.7 (0.0-0.8) K/uL Eos # (Auto) 0.0 (0.0-0.7) K/uL Baso # (Auto) 0.0 (0.0-0.1) K/uL Nucleated RBC % 0.0 /100WBC Nucleated RBCs # 0 K/uL Sodium 139 (136-148) mmol/L Potassium 4.0 (3.5-5.1) mmol/L Chloride 106 (98-107) mmol/L Carbon Dioxide 28.1 (21.0-32.0) mmol/L BUN 19 H (7.0-18.0) mg/dL Creatinine 0.9 (0.8-1.3) mg/dL Est Cr Clr Drug Dosing 87.31 mL/min Estimated GFR (MDRD) > 60.0 ml/min Glucose 146 H (74-106) mg/dL Calcium 8.1 L (8.5-10.1) mg/dL Magnesium 2.3 (1.8-2.4) mg/dL Vitamin D 25-Hydroxy 9.4 L (30.0-100.0) ng/mL Result Diagrams: 07/13/20 05:40 07/13/20 05:40 Sepsis Event Note - Evaluation Sepsis Screening Result: No Definite Risk - Focused Exam Vital Signs: Vital Signs Temp Resp BP Pulse Ox 07/13/20 07:00 23 H 107/50 L 91 L 07/13/20 06:00 25 H 107/54 L 90 L 07/13/20 05:00 18 126/79 93 L 07/13/20 04:00 96.8 F L 19 120/68 92 L 07/13/20 03:00 14 111/77 95 07/13/20 02:00 16 113/69 92 L 07/13/20 01:00 21 H 136/85 94 L 07/13/20 00:00 97.2 F 18 124/71 93 L 07/12/20 23:00 24 H 116/62 92 L 07/12/20 22:00 29 H 110/44 L 91 L - Problem List & Annotations (1) Acute hypoxemic respiratory failure SNOMED Code(s): 971615328 Code(s): J96.01 - ACUTE RESPIRATORY FAILURE WITH HYPOXIA Status: Acute Current Visit: Yes (2) COVID-19 SNOMED Code(s): 510336403 Code(s): U07.1 - COVID-19 Status: Acute Current Visit: Yes (3) Hypoxia SNOMED Code(s): 060545801 Code(s): R09.02 - HYPOXEMIA Status: Acute Current Visit: Yes (4) Vitamin D deficiency SNOMED Code(s): 81836636 Code(s): E55.9 - VITAMIN D DEFICIENCY, UNSPECIFIED Status: Acute Current Visit: Yes - Problem List Review Problem List Initiated/Reviewed/Updated: Yes - My Orders Last 24 Hours: My Active Orders 07/13/20 09:00 Cholecalciferol (Vitamin D3) [Vitamin D3] 150 mcg PO DAILY - Plan Plan:: Assessment and Plan: 1. Acute hypoxic respiratory failure secondary to COVID-19 pneumonia: - Patient was transitioned to Vapotherm from CPAP this morning at roughly 6 AM per nursing, (HHF 50 FLOW, 70%fio2), current 02 saturations 86-91%. Patient still has significant drop in O2 saturation with movement, eating and speaking for long periods. Patient restarted on CPAP. [place] chest physiotherapy, prone positioning, Combivent q4 YADY, dexamethasone 6 mg qd (last day), Levaquin, incentive spirometer and acapella. Remdesivir 5-day course is complete. Robitussin and Tessalon pearls PRN for cough. Repeat AM labs. Titrate fi02 as tolerated. Continue Levofloxacin,Lovenox 40 mg subcut qd. 2. Severe Vit D Deficiency- Level of 9, started 6000iu VIT D3 daily
--- NOTE | 2020-07-13 09:59 | PN ---
THC Physician - Brief Progress [id number]/10/2021 09:55[facility] Gerry doe, [place] - MATTHEW (MILI) - [place] [facility], COVID+Date of Service 07/13/2020 09 :55HPI/Events of Note eICU Progress [id number] being managed for acute hypoxemic respiratory failure sec ondary to COVID-19 pneumonia.On camera the patient is awake, upright in a chair and eating breakfast. Noted to be on VapothermReviewedVitalsEMR notesLabsImagingMedicationseICU impressionsAcute hypoxemi c respiratory failureCOVID-19 pneumoniaQI measureeICU recommendationsComplete 10 day Decadron courseS tatus post completion of remdesivir courseWean heated high flow nasal cannula as tolerated to maintai n saturation of greater than 92%Self proning as toleratedVTE prophylaxis noted with subcu LovenoxGI p rophylaxis noted with PPIGlycemic control per protocol, blood sugar target between 1 4180Thank you fo r allowing us to participate in the care of your patient.Interventions Major-Hypoxemia - evaluation a nd management, Infection - evaluation and management, Respiratory failure - evaluation and management
[2020-07-13] MEDS: Levofloxacin/Dextrose 5%-Water 750 MG in Premix Bag 1 BAG IV SCH (10:49)
[2020-07-13] MEDS: Dexamethasone 4 MG Tab PO SCH (11:00)
[2020-07-13] MEDS: Enoxaparin 40 MG/0.4 ML Syringe SUBCUT SCH (16:15)
[2020-07-13] MEDS ORDERED: Polyethylene Glycol 3350 Powder 17 GM Packet PO PRN (16:42)
[2020-07-14] MEDS: Albuterol/Ipratropium 4 GM Inhalation Spray INH SCH ×6 (01:57→21:20)
[2020-07-14 06:28] LABS: BLOOD UREA NITROGEN,BUN 14 mg/dL (7.0-18.0); CARBON DIOXIDE,CO2 25.8 mmol/L (21.0-32.0); CHLORIDE,CL 104 mmol/L (98-107); GLUCOSE RANDOM 198 mg/dL (74-106); POTASSIUM,K 4.2 mmol/L (3.5-5.1); SODIUM,NA 137 mmol/L (136-148)
[2020-07-14] MEDS: Codeine/guaiFENesin 10-100 MG/5 ML Syrup 5 ML Cup PO PRN ×2 (08:38→15:56)
[2020-07-14] MEDS: Pantoprazole 40 MG Tab.CR PO SCH (08:38)
[2020-07-14] MEDS: Cholecalciferol (Vitamin D3) 25 MCG Tab PO SCH (08:38)
[2020-07-14] MEDS: Benzonatate 100 MG Cap PO PRN ×2 (08:38→16:55)
--- NOTE | 2020-07-14 10:10 | PCM.PN ---
- General Info Date of Service: 07/14/20 Subjective Update: Patient states that he feels comfortable this morning denies any overnight events. Patient denies chest pain, shortness of breath, fever, chills, nausea, vomiting, abdominal pain. - Review of Systems General: Denies: Fever, Chills Pulmonary: Denies: Shortness of Breath Cardiovascular: Denies: Chest Pain Gastrointestinal: Denies: Abdominal Pain, Nausea Skin: Denies: Cyanosis Neurological: Denies: Confusion Psychiatric: Denies: Confusion - Patient Data Vitals - Most Recent: Last Vital Signs Temp 97.5 F 07/14/20 08:00 Pulse 126 H 07/10/20 12:22 Resp 19 07/14/20 09:00 BP 109/77 07/14/20 09:00 Pulse Ox 94 L 07/14/20 09:00 Weight - Most Recent: 195 lb 6.4 oz I&O - Last 24 Hours: Intake & Output 07/13/20 07/14/20 07/14/20 22:59 06:59 14:59 Intake Total 760 950 Output Total 440 1860 Balance 320 -910 Lab Results Last 24 Hours: Laboratory Results - last 24 hr 07/14/20 07/14/20 Range/Units 05:36 05:36 WBC 13.07 H (4.0-11.0) K/uL RBC 4.62 (4.50-5.90) M/uL Hgb 14.5 (13.0-17.0) g/dL Hct 42.6 (38.0-50.0) % MCV 92.2 (80.0-98.0) fL MCH 31.4 (27.0-32.0) pg MCHC 34.0 (31.0-37.0) g/dL RDW Std Deviation 44.5 (28.0-62.0) fl RDW Coeff of Flakita 13 (11.0-15.0) % Plt Count 268 (150-400) K/uL MPV 11.50 (7.40-12.00) fL Add Manual Diff YES Neutrophils % (Manual) 77 (48.0-80.0) % Band Neutrophils % 2 % Lymphocytes % (Manual) 11 L (16.0-40.0) % Monocytes % (Manual) 10 (0.0-15.0) % Nucleated RBC % 0.0 /100WBC Absolute Seg Neuts 10.1 H (1.4-5.7) Band Neutrophils # 0.3 Lymphocytes # (Manual) 1.4 (0.6-2.4) Monocytes # (Manual) 1.3 H (0.0-0.8) Nucleated RBCs # 0 K/uL Sodium 137 (136-148) mmol/L Potassium 4.2 (3.5-5.1) mmol/L Chloride 104 (98-107) mmol/L Carbon Dioxide 25.8 (21.0-32.0) mmol/L BUN 14 (7.0-18.0) mg/dL Creatinine 0.8 (0.8-1.3) mg/dL Est Cr Clr Drug Dosing 98.23 mL/min Estimated GFR (MDRD) > 60.0 ml/min Glucose 198 H (74-106) mg/dL Calcium 8.2 L (8.5-10.1) mg/dL Total Bilirubin 0.2 (0.2-1.0) mg/dL AST 23 (15-37) IU/L ALT 46 (14-63) IU/L Alkaline Phosphatase 70 (46-116) U/L Total Protein 6.9 (6.4-8.2) g/dL Albumin 2.5 L (3.4-5.0) g/dL Globulin 4.4 H (2.6-4.0) g/dL Albumin/Globulin Ratio 0.6 L (0.9-1.6) Med Orders - Current: Current Medications Albuterol/Ipratropium (Combivent Respimat) 0 gm INH Q4HRRT [facility] Last Admin: 07/14/20 09:57 Dose: 1 puff Documented by: Benzonatate (Tessalon Perles) 200 mg PO TID PRN PRN Reason: Cough Last Admin: 07/14/20 08:38 Dose: 200 mg Documented by: Dexamethasone (Dexamethasone 4 Mg Tab) 6 mg PO Q24H [facility] Last Admin: 07/13/20 11:00 Dose: 6 mg Documented by: Docusate Sodium (Colace) 100 mg PO BID PRN PRN Reason: Constipation Last Admin: 07/09/20 18:19 Dose: 100 mg Documented by: Enoxaparin Sodium (Enoxaparin 40 Mg/0.4 Ml Syringe) 40 mg SUBCUT Q24H [facility] Last Admin: 07/13/20 16:15 Dose: 40 mg Documented by: Guaifenesin/Codeine Phosphate (Robitussin Ac) 5 ml PO Q6H PRN PRN Reason: Cough Last Admin: 07/14/20 08:38 Dose: 5 ml Documented by: Levofloxacin/Dextrose 750 mg/ (Premix) 150 mls @ 100 mls/hr IV Q24H [facility] Last Admin: 07/13/20 10:49 Dose: 100 mls/hr Documented by: Lorazepam (Ativan) 1 mg IVPUSH Q6H PRN PRN Reason: Anxiety Last Admin: 07/09/20 18:16 Dose: 1 mg Documented by: Pantoprazole Sodium (Pantoprazole 40 Mg Tab.Cr) 40 mg PO DAILY [facility] Last Admin: 07/14/20 08:38 Dose: 40 mg Documented by: Sodium Chloride (Saline Flush) 10 ml FLUSH ASDIRECTED PRN PRN Reason: Keep Vein Open Last Admin: 07/06/20 21:31 Dose: 10 ml Documented by: Sodium Chloride (Saline Flush) 2.5 ml FLUSH ASDIRECTED PRN PRN Reason: Keep Vein Open Last Admin: 07/10/20 11:04 Dose: 2.5 ml Documented by: Discontinued Medications Acetaminophen (Tylenol) 650 mg PO NOW ONE Stop: 07/03/20 11:13 Last Admin: 07/03/20 11:17 Dose: 650 mg Documented by: Albuterol/Ipratropium (Combivent Respimat) 0 gm INH Q4H PRN PRN Reason: Dyspnea Albuterol/Ipratropium (Combivent Respimat) 0 gm INH Q4H [facility] Last Admin: 07/05/20 05:58 Dose: Not Given Documented by: Benzonatate (Tessalon Perles) 100 mg PO TID PRN PRN Reason: Cough Last Admin: 07/04/20 00:08 Dose: 100 mg Documented by: Dexamethasone (Decadron) 6 mg IVPUSH ONETIME ONE Stop: 07/03/20 12:37 Last Admin: 07/03/20 13:34 Dose: 6 mg Documented by: Furosemide (Lasix) 20 mg IVPUSH ONETIME ONE Stop: 07/08/20 11:11 Last Admin: 07/08/20 11:39 Dose: 20 mg Documented by: Furosemide (Lasix) 20 mg IVPUSH ONETIME ONE Stop: 07/09/20 13:27 Last Admin: 07/09/20 13:58 Dose: 20 mg Documented by: Furosemide (Lasix) 20 mg IVPUSH ONETIME ONE Stop: 07/10/20 11:07 Last Admin: 07/10/20 12:42 Dose: 20 mg Documented by: Remdesivir 200 mg/ Sodium (Chloride) 250 mls @ 250 mls/hr IV ONETIME ONE Stop: 07/03/20 13:02 Last Admin: 07/03/20 14:41 Dose: Not Given Documented by: Remdesivir 200 mg/ Sodium (Chloride) 250 mls @ 250 mls/hr IV ONETIME ONE Stop: 07/03/20 14:44 Last Admin: 07/03/20 14:21 Dose: 250 mls/hr Documented by: Remdesivir 100 mg/ Sodium (Chloride) 100 mls @ 100 mls/hr IV Q24H [facility] Stop: 07/07/20 14:59 Last Admin: 07/07/20 14:10 Dose: 100 mls/hr Documented by: Iodixanol (Visipaque 320) 100 ml IVPUSH ONETIME ONE Stop: 07/06/20 16:05 Last Admin: 07/06/20 16:05 Dose: 100 ml Documented by: Iopamidol (Isovue Multipack-370 (76%)) 100 ml IVPUSH ONETIME STA Stop: 07/06/20 16:01 Last Admin: 07/06/20 16:01 Dose: 100 ml Documented by: Iopamidol (Isovue Multipack-370 (76%)) 100 ml IVPUSH ONETIME ONE Stop: 07/08/20 12:59 Last Admin: 07/08/20 12:58 Dose: 100 ml Documented by: - Exam Quality Assessment: Supplemental Oxygen (HHF) General: Alert, Oriented Lungs: Clear to Auscultation, Normal Respiratory Effort Cardiovascular: Regular Rate, Regular Rhythm GI/Abdominal Exam: Normal Bowel Sounds, Soft Extremities: No Pedal Edema Psy/Mental Status: Alert - Patient Data Lab Results Last 24 hrs: Laboratory Results - last 24 hr 07/14/20 07/14/20 Range/Units 05:36 05:36 WBC 13.07 H (4.0-11.0) K/uL RBC 4.62 (4.50-5.90) M/uL Hgb 14.5 (13.0-17.0) g/dL Hct 42.6 (38.0-50.0) % MCV 92.2 (80.0-98.0) fL MCH 31.4 (27.0-32.0) pg MCHC 34.0 (31.0-37.0) g/dL RDW Std Deviation 44.5 (28.0-62.0) fl RDW Coeff of Flakita 13 (11.0-15.0) % Plt Count 268 (150-400) K/uL MPV 11.50 (7.40-12.00) fL Add Manual Diff YES Neutrophils % (Manual) 77 (48.0-80.0) % Band Neutrophils % 2 % Lymphocytes % (Manual) 11 L (16.0-40.0) % Monocytes % (Manual) 10 (0.0-15.0) % Nucleated RBC % 0.0 /100WBC Absolute Seg Neuts 10.1 H (1.4-5.7) Band Neutrophils # 0.3 Lymphocytes # (Manual) 1.4 (0.6-2.4) Monocytes # (Manual) 1.3 H (0.0-0.8) Nucleated RBCs # 0 K/uL Sodium 137 (136-148) mmol/L Potassium 4.2 (3.5-5.1) mmol/L Chloride 104 (98-107) mmol/L Carbon Dioxide 25.8 (21.0-32.0) mmol/L BUN 14 (7.0-18.0) mg/dL Creatinine 0.8 (0.8-1.3) mg/dL Est Cr Clr Drug Dosing 98.23 mL/min Estimated GFR (MDRD) > 60.0 ml/min Glucose 198 H (74-106) mg/dL Calcium 8.2 L (8.5-10.1) mg/dL Total Bilirubin 0.2 (0.2-1.0) mg/dL AST 23 (15-37) IU/L ALT 46 (14-63) IU/L Alkaline Phosphatase 70 (46-116) U/L Total Protein 6.9 (6.4-8.2) g/dL Albumin 2.5 L (3.4-5.0) g/dL Globulin 4.4 H (2.6-4.0) g/dL Albumin/Globulin Ratio 0.6 L (0.9-1.6) Result Diagrams: 07/14/20 05:36 07/14/20 05:36 Sepsis Event Note - Evaluation Sepsis Screening Result: Sepsis Risk - Focused Exam Vital Signs: Vital Signs Temp Resp BP Pulse Ox 07/14/20 09:00 19 109/77 94 L 07/14/20 08:00 97.5 F 21 H 128/70 95 07/14/20 07:00 22 H 118/69 95 07/14/20 06:00 21 H 131/82 94 L 07/14/20 05:00 22 H 90/57 L 92 L 07/14/20 04:00 98.1 F 21 H 100/50 L 94 L 07/14/20 03:00 21 H 114/58 L 92 L 07/14/20 02:00 19 108/55 L 91 L 07/14/20 01:00 20 124/72 92 L 07/14/20 00:00 96.9 F 19 119/62 91 L 07/13/20 23:00 15 111/59 L 92 L - Problem List & Annotations (1) Acute hypoxemic respiratory failure SNOMED Code(s): 736217519 Code(s): J96.01 - ACUTE RESPIRATORY FAILURE WITH HYPOXIA Status: Acute Current Visit: Yes (2) COVID-19 SNOMED Code(s): 928116338 Code(s): U07.1 - COVID-19 Status: Acute Current Visit: Yes (3) Hypoxia SNOMED Code(s): 579104746 Code(s): R09.02 - HYPOXEMIA Status: Acute Current Visit: Yes (4) Vitamin D deficiency SNOMED Code(s): 97154929 Code(s): E55.9 - VITAMIN D DEFICIENCY, UNSPECIFIED Status: Acute Current Visit: Yes - Problem List Review Problem List Initiated/Reviewed/Updated: Yes - My Orders Last 24 Hours: My Active Orders 07/13/20 15:03 CPAP Adult [RT BiPAP/CPAP] [RC] ASDIRECTED 07/13/20 15:04 Oxygen Therapy Adult [Oxygen Therapy] [RC] ASDIRECTED 03/10/21 16:42 polyethylene glycoL 3350 [MiraLAX] 17 gm PO BEDTIME PRN - Plan Plan:: Assessment and Plan: 1. Acute hypoxic respiratory failure secondary to COVID-19 pneumonia: - Patient continues on Vapotherm this morning. (HHF 40 FLOW, 50%fio2), current 02 saturations 91%, improvement from yesterday. Continue chest physiotherapy, prone positioning, Combivent q4 YADY, D/C dexamethasone 6 mg (has received 10 day course), Levaquin, incentive spirometer and acapella. Remdesivir 5-day course has been completed. Robitussin and Tessalon pearls PRN for cough. Repeat AM labs. Titrate fi02 as tolerated. 2. Severe Vit D Deficiency- Level of 9, resume 6000iu VIT D3 daily
[2020-07-14] MEDS: Levofloxacin/Dextrose 5%-Water 750 MG in Premix Bag 1 BAG IV SCH (10:22)
[2020-07-14] MEDS: Enoxaparin 40 MG/0.4 ML Syringe SUBCUT SCH (15:56)
[2020-07-15] MEDS: Albuterol/Ipratropium 4 GM Inhalation Spray INH SCH ×6 (01:06→22:57)
[2020-07-15] MEDS: Codeine/guaiFENesin 10-100 MG/5 ML Syrup 5 ML Cup PO PRN ×2 (01:06→09:02)
[2020-07-15] MEDS: Benzonatate 100 MG Cap PO PRN (05:07)
[2020-07-15 06:30] LABS: BLOOD UREA NITROGEN,BUN 18 mg/dL (7.0-18.0); CARBON DIOXIDE,CO2 27.3 mmol/L (21.0-32.0); CHLORIDE,CL 105 mmol/L (98-107); GLUCOSE RANDOM 90 mg/dL (74-106); POTASSIUM,K 4.1 mmol/L (3.5-5.1); SODIUM,NA 139 mmol/L (136-148)
[2020-07-15] MEDS: Pantoprazole 40 MG Tab.CR PO SCH (08:37)
[2020-07-15] MEDS: Cholecalciferol (Vitamin D3) 25 MCG Tab PO SCH (08:37)
--- NOTE | 2020-07-15 10:26 | PCM.PN ---
- General Info Date of Service: 07/15/20 Subjective Update: Patient denies any overnight complaints patient and was switched from heated high flow to nasal cannula 4 L this morning and is tolerating it well. Patient states that he feels fine denies fever, chills, nausea, vomiting, abdominal pain, chest pain, shortness of breath. - Review of Systems General: Denies: Fever, Chills Pulmonary: Denies: Shortness of Breath Cardiovascular: Denies: Chest Pain Gastrointestinal: Denies: Abdominal Pain Neurological: Denies: Confusion - Patient Data Vitals - Most Recent: Last Vital Signs Temp 97.4 F 07/15/20 08:00 Pulse 58 L 07/15/20 08:00 Resp 18 07/15/20 09:00 BP 121/84 07/15/20 09:00 Pulse Ox 93 L 07/15/20 09:00 Weight - Most Recent: 194 lb 12.8 oz I&O - Last 24 Hours: Intake & Output 07/14/20 07/15/20 07/15/20 22:59 06:59 14:59 Intake Total 880 550 Output Total 650 950 Balance 230 -400 Lab Results Last 24 Hours: Laboratory Results - last 24 hr 07/15/20 07/15/20 Range/Units 05:38 05:38 WBC 8.25 (4.0-11.0) K/uL RBC 4.53 (4.50-5.90) M/uL Hgb 14.0 (13.0-17.0) g/dL Hct 42.0 (38.0-50.0) % MCV 92.7 (80.0-98.0) fL MCH 30.9 (27.0-32.0) pg MCHC 33.3 (31.0-37.0) g/dL RDW Std Deviation 45.0 (28.0-62.0) fl RDW Coeff of Flakita 13 (11.0-15.0) % Plt Count 252 (150-400) K/uL MPV 11.30 (7.40-12.00) fL Add Manual Diff YES Neutrophils % (Manual) 60 (48.0-80.0) % Band Neutrophils % 3 % Lymphocytes % (Manual) 28 (16.0-40.0) % Monocytes % (Manual) 7 (0.0-15.0) % Eosinophils % (Manual) 2 (0.0-7.0) % Nucleated RBC % 0.0 /100WBC Absolute Seg Neuts 5.0 (1.4-5.7) Band Neutrophils # 0.2 Lymphocytes # (Manual) 2.3 (0.6-2.4) Monocytes # (Manual) 0.6 (0.0-0.8) Eosinophils # (Manual) 0.2 (0.0-0.7) Nucleated RBCs # 0 K/uL Sodium 139 (136-148) mmol/L Potassium 4.1 (3.5-5.1) mmol/L Chloride 105 (98-107) mmol/L Carbon Dioxide 27.3 (21.0-32.0) mmol/L BUN 18 (7.0-18.0) mg/dL Creatinine 0.8 (0.8-1.3) mg/dL Est Cr Clr Drug Dosing 98.23 mL/min Estimated GFR (MDRD) > 60.0 ml/min Glucose 90 (74-106) mg/dL Calcium 7.7 L (8.5-10.1) mg/dL Total Bilirubin 0.4 (0.2-1.0) mg/dL AST 24 (15-37) IU/L ALT 48 (14-63) IU/L Alkaline Phosphatase 63 (46-116) U/L Total Protein 6.4 (6.4-8.2) g/dL Albumin 2.4 L (3.4-5.0) g/dL Globulin 4.0 (2.6-4.0) g/dL Albumin/Globulin Ratio 0.6 L (0.9-1.6) Med Orders - Current: Current Medications Albuterol/Ipratropium (Combivent Respimat) 0 gm INH Q4HRRT [facility] Last Admin: 07/15/20 06:05 Dose: 1 puff Documented by: Benzonatate (Tessalon Perles) 200 mg PO TID PRN PRN Reason: Cough Last Admin: 07/15/20 05:07 Dose: 200 mg Documented by: Dexamethasone (Dexamethasone 4 Mg Tab) 6 mg PO Q24H [facility] Last Admin: 07/13/20 11:00 Dose: 6 mg Documented by: Docusate Sodium (Colace) 100 mg PO BID PRN PRN Reason: Constipation Last Admin: 07/09/20 18:19 Dose: 100 mg Documented by: Enoxaparin Sodium (Enoxaparin 40 Mg/0.4 Ml Syringe) 40 mg SUBCUT Q24H [facility] Last Admin: 07/14/20 15:56 Dose: 40 mg Documented by: Guaifenesin/Codeine Phosphate (Codeine/Guaifenesin 10-100 Mg/5 Ml Syrup 5 Ml Cup) 5 ml PO Q6H PRN PRN Reason: Cough Last Admin: 07/15/20 09:02 Dose: 5 ml Documented by: Levofloxacin/Dextrose 750 mg/ (Premix) 150 mls @ 100 mls/hr IV Q24H [facility] Last Admin: 07/14/20 10:22 Dose: 100 mls/hr Documented by: Lorazepam (Ativan) 1 mg IVPUSH Q6H PRN PRN Reason: Anxiety Last Admin: 07/09/20 18:16 Dose: 1 mg Documented by: Pantoprazole Sodium (Pantoprazole 40 Mg Tab.Cr) 40 mg PO DAILY [facility] Last Admin: 07/15/20 08:37 Dose: 40 mg Documented by: Sodium Chloride (Saline Flush) 10 ml FLUSH ASDIRECTED PRN PRN Reason: Keep Vein Open Last Admin: 07/06/20 21:31 Dose: 10 ml Documented by: Sodium Chloride (Saline Flush) 2.5 ml FLUSH ASDIRECTED PRN PRN Reason: Keep Vein Open Last Admin: 07/10/20 11:04 Dose: 2.5 ml Documented by: Discontinued Medications Acetaminophen (Tylenol) 650 mg PO NOW ONE Stop: 07/03/20 11:13 Last Admin: 07/03/20 11:17 Dose: 650 mg Documented by: Albuterol/Ipratropium (Combivent Respimat) 0 gm INH Q4H PRN PRN Reason: Dyspnea Albuterol/Ipratropium (Combivent Respimat) 0 gm INH Q4H [facility] Last Admin: 07/05/20 05:58 Dose: Not Given Documented by: Benzonatate (Tessalon Perles) 100 mg PO TID PRN PRN Reason: Cough Last Admin: 07/04/20 00:08 Dose: 100 mg Documented by: Dexamethasone (Decadron) 6 mg IVPUSH ONETIME ONE Stop: 07/03/20 12:37 Last Admin: 07/03/20 13:34 Dose: 6 mg Documented by: Furosemide (Lasix) 20 mg IVPUSH ONETIME ONE Stop: 07/08/20 11:11 Last Admin: 07/08/20 11:39 Dose: 20 mg Documented by: Furosemide (Lasix) 20 mg IVPUSH ONETIME ONE Stop: 07/09/20 13:27 Last Admin: 07/09/20 13:58 Dose: 20 mg Documented by: Furosemide (Lasix) 20 mg IVPUSH ONETIME ONE Stop: 07/10/20 11:07 Last Admin: 07/10/20 12:42 Dose: 20 mg Documented by: Remdesivir 200 mg/ Sodium (Chloride) 250 mls @ 250 mls/hr IV ONETIME ONE Stop: 07/03/20 13:02 Last Admin: 07/03/20 14:41 Dose: Not Given Documented by: Remdesivir 200 mg/ Sodium (Chloride) 250 mls @ 250 mls/hr IV ONETIME ONE Stop: 07/03/20 14:44 Last Admin: 07/03/20 14:21 Dose: 250 mls/hr Documented by: Remdesivir 100 mg/ Sodium (Chloride) 100 mls @ 100 mls/hr IV Q24H [facility] Stop: 07/07/20 14:59 Last Admin: 07/07/20 14:10 Dose: 100 mls/hr Documented by: Iodixanol (Visipaque 320) 100 ml IVPUSH ONETIME ONE Stop: 07/06/20 16:05 Last Admin: 07/06/20 16:05 Dose: 100 ml Documented by: Iopamidol (Isovue Multipack-370 (76%)) 100 ml IVPUSH ONETIME STA Stop: 07/06/20 16:01 Last Admin: 07/06/20 16:01 Dose: 100 ml Documented by: Iopamidol (Isovue Multipack-370 (76%)) 100 ml IVPUSH ONETIME ONE Stop: 07/08/20 12:59 Last Admin: 07/08/20 12:58 Dose: 100 ml Documented by: - Exam Quality Assessment: Supplemental Oxygen (N/C 4L) General: Alert, Oriented Lungs: Clear to Auscultation, Normal Respiratory Effort, Crackles (fine) Cardiovascular: Regular Rate, Regular Rhythm GI/Abdominal Exam: Normal Bowel Sounds Extremities: Normal Inspection Psy/Mental Status: Alert - Patient Data Lab Results Last 24 hrs: Laboratory Results - last 24 hr 07/15/20 07/15/20 Range/Units 05:38 05:38 WBC 8.25 (4.0-11.0) K/uL RBC 4.53 (4.50-5.90) M/uL Hgb 14.0 (13.0-17.0) g/dL Hct 42.0 (38.0-50.0) % MCV 92.7 (80.0-98.0) fL MCH 30.9 (27.0-32.0) pg MCHC 33.3 (31.0-37.0) g/dL RDW Std Deviation 45.0 (28.0-62.0) fl RDW Coeff of Flakita 13 (11.0-15.0) % Plt Count 252 (150-400) K/uL MPV 11.30 (7.40-12.00) fL Add Manual Diff YES Neutrophils % (Manual) 60 (48.0-80.0) % Band Neutrophils % 3 % Lymphocytes % (Manual) 28 (16.0-40.0) % Monocytes % (Manual) 7 (0.0-15.0) % Eosinophils % (Manual) 2 (0.0-7.0) % Nucleated RBC % 0.0 /100WBC Absolute Seg Neuts 5.0 (1.4-5.7) Band Neutrophils # 0.2 Lymphocytes # (Manual) 2.3 (0.6-2.4) Monocytes # (Manual) 0.6 (0.0-0.8) Eosinophils # (Manual) 0.2 (0.0-0.7) Nucleated RBCs # 0 K/uL Sodium 139 (136-148) mmol/L Potassium 4.1 (3.5-5.1) mmol/L Chloride 105 (98-107) mmol/L Carbon Dioxide 27.3 (21.0-32.0) mmol/L BUN 18 (7.0-18.0) mg/dL Creatinine 0.8 (0.8-1.3) mg/dL Est Cr Clr Drug Dosing 98.23 mL/min Estimated GFR (MDRD) > 60.0 ml/min Glucose 90 (74-106) mg/dL Calcium 7.7 L (8.5-10.1) mg/dL Total Bilirubin 0.4 (0.2-1.0) mg/dL AST 24 (15-37) IU/L ALT 48 (14-63) IU/L Alkaline Phosphatase 63 (46-116) U/L Total Protein 6.4 (6.4-8.2) g/dL Albumin 2.4 L (3.4-5.0) g/dL Globulin 4.0 (2.6-4.0) g/dL Albumin/Globulin Ratio 0.6 L (0.9-1.6) Result Diagrams: 07/15/20 05:38 07/15/20 05:38 Sepsis Event Note - Evaluation Sepsis Screening Result: No Definite Risk - Focused Exam Vital Signs: Vital Signs Temp Pulse Resp BP Pulse Ox Pulse Ox 07/15/20 09:00 18 121/84 93 L 07/15/20 08:00 97.4 F 58 L 21 H 119/65 89 L 07/15/20 07:00 23 H 108/61 91 L 07/15/20 06:22 91 L 07/15/20 06:00 21 H 118/60 91 L 07/15/20 05:00 98.4 F 26 H 107/76 88 L 07/15/20 04:00 22 H 98/54 L 92 L 07/15/20 03:00 20 99/52 L 92 L 07/15/20 02:00 20 93/56 L 92 L 07/15/20 01:00 23 H 94/46 L 92 L 07/14/20 23:59 97.8 F 19 105/71 92 L 07/14/20 23:00 20 130/65 92 L - Problem List & Annotations (1) Acute hypoxemic respiratory failure SNOMED Code(s): 071396151 Code(s): J96.01 - ACUTE RESPIRATORY FAILURE WITH HYPOXIA Status: Acute Current Visit: Yes (2) COVID-19 SNOMED Code(s): 823538905 Code(s): U07.1 - COVID-19 Status: Acute Current Visit: Yes (3) Hypoxia SNOMED Code(s): 589507630 Code(s): R09.02 - HYPOXEMIA Status: Acute Current Visit: Yes (4) Vitamin D deficiency SNOMED Code(s): 94857927 Code(s): E55.9 - VITAMIN D DEFICIENCY, UNSPECIFIED Status: Acute Current Visit: Yes - Problem List Review Problem List Initiated/Reviewed/Updated: Yes - My Orders Last 24 Hours: My Active Orders 07/14/20 17:46 RT Oxygen High Humidity High Flow [RESPCARE] Routine - Plan Plan:: Assessment and Plan: 1. Acute hypoxic respiratory failure secondary to COVID-19 pneumonia: - Patient transition to 4 L nasal cannula this morning and is tolerating it well with oxygen saturations between 90-91%. We will continue nasal cannula oxygen support till afternoon and downgrade patient to Med/Surg status if patient continues to maintain normal O2 saturations on nasal cannula. Continue chest physiotherapy, prone positioning, Combivent q4 YADY, Levaquin, incentive spirometer and acapella. Remdesivir 5-day course has been completed. Robitussin and Tessalon pearls PRN for cough. Repeat AM labs. Discontinue levofloxacin as patient is already received 7-day course. 2. Severe Vit D Deficiency- Level of 9, resume 6000iu VIT D3 daily
[2020-07-15] MEDS: Enoxaparin 40 MG/0.4 ML Syringe SUBCUT SCH (15:45)
[2020-07-16] MEDS: Albuterol/Ipratropium 4 GM Inhalation Spray INH SCH ×4 (02:54→14:35)
[2020-07-16 06:43] LABS: BLOOD UREA NITROGEN,BUN 15 mg/dL (7.0-18.0); CARBON DIOXIDE,CO2 27.1 mmol/L (21.0-32.0); CHLORIDE,CL 104 mmol/L (98-107); GLUCOSE RANDOM 116 mg/dL (74-106); POTASSIUM,K 4.4 mmol/L (3.5-5.1); SODIUM,NA 138 mmol/L (136-148)
[2020-07-16] MEDS: Pantoprazole 40 MG Tab.CR PO SCH (09:11)
[2020-07-16] MEDS: Cholecalciferol (Vitamin D3) 25 MCG Tab PO SCH (09:11)
--- NOTE | 2020-07-16 11:58 | PCM.DCSUM1 ---
<Naveed Bird - Last Filed: 07/16/20 12:55> Discharge Summary - Hospital Course Free Text/Narrative:: 41-year-old male admitted to the medical floor on July 03, 2020 after presenting to the ED with an 8-day history of cough. Patient was found to be Covid positive via testing and chest x-ray showed bilateral airspace opacities. Patient's admission course included heated high flow therapy, CPAP and BiPAP when patient was admitted to the ICU for decreasing oxygen saturations, and then back to heated high flow when patient was transferred to medical unit. Patient was eventually transitioned to 2 L nasal cannula at which time he was discharged with home oxygen. Patient was also treated with 10 days of dexamethasone 6 mg, Levaquin antibiotics for 7 days, remdesivir 5-day course, incentive spirometry, chest 50 therapy, Acapella. Patient was noted to be severely vitamin D deficie nt with a level of 9, started on 6000 IU vitamin D3 daily in the hospital and discharged home on 5000 IU daily for 30 days. Patient to follow-up with primary care provider for any other medical concerns. - Discharge Data Discharge Date: 07/16/20 Discharge Disposition: Home, Self-Care 01 Condition: Fair - Referral to Home Health Primary Care Physician: PCP None - Discharge Diagnosis/Problem(s) (1) Acute hypoxemic respiratory failure SNOMED Code(s): 837135430 ICD Code: J96.01 - ACUTE RESPIRATORY FAILURE WITH HYPOXIA Status: Acute (2) COVID-19 SNOMED Code(s): 955875763 ICD Code: U07.1 - COVID-19 Status: Acute (3) Hypoxia SNOMED Code(s): 206154036 ICD Code: R09.02 - HYPOXEMIA Status: Acute (4) Vitamin D deficiency SNOMED Code(s): 24710288 ICD Code: E55.9 - VITAMIN D DEFICIENCY, UNSPECIFIED Status: Acute - Patient Instructions Diet: Heart Healthy Diet Activity: As Tolerated Showering/Bathing: May Shower Notify Provider of: Fever, Increased Pain, Swelling and Redness, Nausea and/or Vomiting Other/Special Instructions: Patient to remain quarantined at home for 6 more days. Patient to use home oxygen - Discharge Plan *PRESCRIPTION DRUG MONITORING PROGRAM REVIEWED*: Not Applicable *COPY OF PRESCRIPTION DRUG MONITORING REPORT IN PATIENT EDUARDO: Not Applicable Prescriptions/Med Rec: Cholecalciferol (Vitamin D3) [Vitamin D3] 5,000 unit PO DAILY 30 Days #30 capsule Home Medications: Home Meds Cholecalciferol (Vitamin D3) [Vitamin D3] 5,000 unit PO DAILY 30 Days #30 capsule 07/16/20 [Rx] Patient Handouts: Calcium; Vitamin D oral tablets, COVID-19 Frequently Asked Questions, Home Oxygen Use, Adult, Prevent the Spread of COVID-19 if You Are Sick - [facility] Referrals: [facility] [Outside] Hortencia Long NP [Nurse Practitioner] - 07/19/20 12:30 pm (Call the clinic on Saturday and reschedule follow-up appointment on 07/26/20. (Needs to be on quarantine for 20 days, from the time get diagnosed with COVID-19.)) - Discharge Summary/Plan Comment DC Time >30 min.: Yes - General Info Date of Service: 07/16/20 Subjective Update: Patient denies fever, chills, nausea, vomiting, abdominal pain, chest pain, shortness of breath. Patient states that he feels much better and is ready to go home. - Review of Systems General: Denies: Fever, Chills Pulmonary: Denies: Shortness of Breath Cardiovascular: Denies: Chest Pain Gastrointestinal: Denies: Abdominal Pain, Nausea Neurological: Denies: Confusion Psychiatric: Denies: Confusion - Patient Data Vitals - Most Recent: Last Vital Signs Temp 96.8 F L 07/16/20 09:05 Pulse 89 07/16/20 09:05 Resp 18 07/16/20 09:05 BP 118/73 07/16/20 09:05 Pulse Ox 91 L 07/16/20 09:05 Weight - Most Recent: 88.36 kg I&O - Last 24 hours: Intake & Output 07/15/20 07/16/20 07/16/20 22:59 06:59 14:59 Intake Total 600 Output Total 650 Balance -50 Lab Results - Last 24 hrs: Laboratory Results - last 24 hr 07/16/20 07/16/20 Range/Units 06:03 06:03 WBC 8.06 (4.0-11.0) K/uL RBC 4.75 (4.50-5.90) M/uL Hgb 14.8 (13.0-17.0) g/dL Hct 44.1 (38.0-50.0) % MCV 92.8 (80.0-98.0) fL MCH 31.2 (27.0-32.0) pg MCHC 33.6 (31.0-37.0) g/dL RDW Std Deviation 46.1 (28.0-62.0) fl RDW Coeff of Flakita 14 (11.0-15.0) % Plt Count 256 (150-400) K/uL MPV 10.80 (7.40-12.00) fL Add Manual Diff YES Neutrophils % (Manual) 71 (48.0-80.0) % Band Neutrophils % 1 % Lymphocytes % (Manual) 17 (16.0-40.0) % Monocytes % (Manual) 9 (0.0-15.0) % Basophils % (Manual) 1 (0.0-1.5) % Metamyelocytes % 1 % Nucleated RBC % 0.0 /100WBC Absolute Seg Neuts 5.7 (1.4-5.7) Band Neutrophils # 0.1 Lymphocytes # (Manual) 1.4 (0.6-2.4) Monocytes # (Manual) 0.7 (0.0-0.8) Basophils # (Manual) 0.1 (0.0-0.1) Absolute Metamyelocyte 0.1 Nucleated RBCs # 0 K/uL Sodium 138 (136-148) mmol/L Potassium 4.4 (3.5-5.1) mmol/L Chloride 104 (98-107) mmol/L Carbon Dioxide 27.1 (21.0-32.0) mmol/L BUN 15 (7.0-18.0) mg/dL Creatinine 0.8 (0.8-1.3) mg/dL Est Cr Clr Drug Dosing 98.23 mL/min Estimated GFR (MDRD) > 60.0 ml/min Glucose 116 H (74-106) mg/dL Calcium 8.0 L (8.5-10.1) mg/dL Total Bilirubin 0.3 (0.2-1.0) mg/dL AST 25 (15-37) IU/L ALT 59 (14-63) IU/L Alkaline Phosphatase 62 (46-116) U/L Total Protein 6.7 (6.4-8.2) g/dL Albumin 2.5 L (3.4-5.0) g/dL Globulin 4.2 H (2.6-4.0) g/dL Albumin/Globulin Ratio 0.6 L (0.9-1.6) Med Orders - Current: Current Medications Albuterol/Ipratropium (Combivent Respimat) 0 gm INH Q4HRRT [facility] Last Admin: 07/16/20 09:57 Dose: 1 puff Documented by: Benzonatate (Benzonatate 100 Mg Cap) 200 mg PO TID PRN PRN Reason: Cough Last Admin: 07/15/20 05:07 Dose: 200 mg Documented by: Cholecalciferol (Cholecalciferol (Vitamin D3) 25 Mcg Tab) 150 mcg PO DAILY [facility] Last Admin: 07/16/20 09:11 Dose: 150 mcg Documented by: Docusate Sodium (Colace) 100 mg PO BID PRN PRN Reason: Constipation Last Admin: 07/09/20 18:19 Dose: 100 mg Documented by: Enoxaparin Sodium (Enoxaparin 40 Mg/0.4 Ml Syringe) 40 mg SUBCUT Q24H [facility] Last Admin: 07/15/20 15:45 Dose: 40 mg Documented by: Guaifenesin/Codeine Phosphate (Codeine/Guaifenesin 10-100 Mg/5 Ml Syrup 5 Ml Cup) 5 ml PO Q6H PRN PRN Reason: Cough Last Admin: 07/15/20 09:02 Dose: 5 ml Documented by: Lorazepam (Ativan) 1 mg IVPUSH Q6H PRN PRN Reason: Anxiety Last Admin: 07/09/20 18:16 Dose: 1 mg Documented by: Pantoprazole Sodium (Pantoprazole 40 Mg Tab.Cr) 40 mg PO DAILY [facility] Last Admin: 07/16/20 09:11 Dose: 40 mg Documented by: Polyethylene Glycol (Polyethylene Glycol 3350 Powder 17 Gm Packet) 17 gm PO BEDTIME PRN PRN Reason: Constipation Last Admin: 07/13/20 18:38 Dose: 17 gm Documented by: Sodium Chloride (Saline Flush) 10 ml FLUSH ASDIRECTED PRN PRN Reason: Keep Vein Open Last Admin: 07/06/20 21:31 Dose: 10 ml Documented by: Sodium Chloride (Saline Flush) 2.5 ml FLUSH ASDIRECTED PRN PRN Reason: Keep Vein Open Last Admin: 07/10/20 11:04 Dose: 2.5 ml Documented by: Discontinued Medications Acetaminophen (Tylenol) 650 mg PO NOW ONE Stop: 07/03/20 11:13 Last Admin: 07/03/20 11:17 Dose: 650 mg Documented by: Albuterol/Ipratropium (Combivent Respimat) 0 gm INH Q4H PRN PRN Reason: Dyspnea Albuterol/Ipratropium (Combivent Respimat) 0 gm INH Q4H YADY Last Admin: 07/05/20 05:58 Dose: Not Given Documented by: Benzonatate (Tessalon Perles) 100 mg PO TID PRN PRN Reason: Cough Last Admin: 07/04/20 00:08 Dose: 100 mg Documented by: Dexamethasone (Decadron) 6 mg IVPUSH ONETIME ONE Stop: 07/03/20 12:37 Last Admin: 07/03/20 13:34 Dose: 6 mg Documented by: Dexamethasone (Dexamethasone 4 Mg Tab) 6 mg PO Q24H YADY Last Admin: 07/13/20 11:00 Dose: 6 mg Documented by: Furosemide (Lasix) 20 mg IVPUSH ONETIME ONE Stop: 07/08/20 11:11 Last Admin: 07/08/20 11:39 Dose: 20 mg Documented by: Furosemide (Lasix) 20 mg IVPUSH ONETIME ONE Stop: 07/09/20 13:27 Last Admin: 07/09/20 13:58 Dose: 20 mg Documented by: Furosemide (Lasix) 20 mg IVPUSH ONETIME ONE Stop: 07/10/20 11:07 Last Admin: 07/10/20 12:42 Dose: 20 mg Documented by: Remdesivir 200 mg/ Sodium (Chloride) 250 mls @ 250 mls/hr IV ONETIME ONE Stop: 07/03/20 13:02 Last Admin: 07/03/20 14:41 Dose: Not Given Documented by: Remdesivir 200 mg/ Sodium (Chloride) 250 mls @ 250 mls/hr IV ONETIME ONE Stop: 07/03/20 14:44 Last Admin: 07/03/20 14:21 Dose: 250 mls/hr Documented by: Remdesivir 100 mg/ Sodium (Chloride) 100 mls @ 100 mls/hr IV Q24H YADY Stop: 07/07/20 14:59 Last Admin: 07/07/20 14:10 Dose: 100 mls/hr Documented by: Levofloxacin/Dextrose 750 mg/ (Premix) 150 mls @ 100 mls/hr IV Q24H [facility] Last Admin: 07/14/20 10:22 Dose: 100 mls/hr Documented by: Iodixanol (Visipaque 320) 100 ml IVPUSH ONETIME ONE Stop: 07/06/20 16:05 Last Admin: 07/06/20 16:05 Dose: 100 ml Documented by: Iopamidol (Isovue Multipack-370 (76%)) 100 ml IVPUSH ONETIME STA Stop: 07/06/20 16:01 Last Admin: 07/06/20 16:01 Dose: 100 ml Documented by: Iopamidol (Isovue Multipack-370 (76%)) 100 ml IVPUSH ONETIME ONE Stop: 07/08/20 12:59 Last Admin: 07/08/20 12:58 Dose: 100 ml Documented by: - Exam Quality Assessment: Reports: Supplemental Oxygen (N/C 2L) General: Reports: Alert, Oriented Lungs: Reports: Clear to Auscultation, Normal Respiratory Effort Cardiovascular: Reports: Regular Rate, Regular Rhythm GI/Abdominal Exam: Normal Bowel Sounds, Soft Extremities: No Pedal Edema Psy/Mental Status: Reports: Alert <Jagjit Fuentes - Last Filed: 07/16/20 20:37> Discharge Summary - Referral to Home Health Primary Care Physician: PCP None - Patient Data Vitals - Most Recent: Last Vital Signs Temp 35.9 C L 07/16/20 12:02 Pulse 115 H 07/16/20 12:02 Resp 18 07/16/20 12:02 BP 125/75 07/16/20 12:02 Pulse Ox 94 L 07/16/20 12:02 I&O - Last 24 hours: Intake & Output 07/16/20 07/16/20 07/16/20 06:59 14:59 22:59 Intake Total 600 Output Total 650 Balance -50 Lab Results - Last 24 hrs: Laboratory Results - last 24 hr 07/16/20 07/16/20 Range/Units 06:03 06:03 WBC 8.06 (4.0-11.0) K/uL RBC 4.75 (4.50-5.90) M/uL Hgb 14.8 (13.0-17.0) g/dL Hct 44.1 (38.0-50.0) % MCV 92.8 (80.0-98.0) fL MCH 31.2 (27.0-32.0) pg MCHC 33.6 (31.0-37.0) g/dL RDW Std Deviation 46.1 (28.0-62.0) fl RDW Coeff of Flakita 14 (11.0-15.0) % Plt Count 256 (150-400) K/uL MPV 10.80 (7.40-12.00) fL Add Manual Diff YES Neutrophils % (Manual) 71 (48.0-80.0) % Band Neutrophils % 1 % Lymphocytes % (Manual) 17 (16.0-40.0) % Monocytes % (Manual) 9 (0.0-15.0) % Basophils % (Manual) 1 (0.0-1.5) % Metamyelocytes % 1 % Nucleated RBC % 0.0 /100WBC Absolute Seg Neuts 5.7 (1.4-5.7) Band Neutrophils # 0.1 Lymphocytes # (Manual) 1.4 (0.6-2.4) Monocytes # (Manual) 0.7 (0.0-0.8) Basophils # (Manual) 0.1 (0.0-0.1) Absolute Metamyelocyte 0.1 Nucleated RBCs # 0 K/uL Sodium 138 (136-148) mmol/L Potassium 4.4 (3.5-5.1) mmol/L Chloride 104 (98-107) mmol/L Carbon Dioxide 27.1 (21.0-32.0) mmol/L BUN 15 (7.0-18.0) mg/dL Creatinine 0.8 (0.8-1.3) mg/dL Est Cr Clr Drug Dosing 98.23 mL/min Estimated GFR (MDRD) > 60.0 ml/min Glucose 116 H (74-106) mg/dL Calcium 8.0 L (8.5-10.1) mg/dL Total Bilirubin 0.3 (0.2-1.0) mg/dL AST 25 (15-37) IU/L ALT 59 (14-63) IU/L Alkaline Phosphatase 62 (46-116) U/L Total Protein 6.7 (6.4-8.2) g/dL Albumin 2.5 L (3.4-5.0) g/dL Globulin 4.2 H (2.6-4.0) g/dL Albumin/Globulin Ratio 0.6 L (0.9-1.6) Med Orders - Current: Current Medications Discontinued Medications Acetaminophen (Tylenol) 650 mg PO NOW ONE Stop: 07/03/20 11:13 Last Admin: 07/03/20 11:17 Dose: 650 mg Documented by: Albuterol/Ipratropium (Combivent Respimat) 0 gm INH Q4H PRN PRN Reason: Dyspnea Albuterol/Ipratropium (Combivent Respimat) 0 gm INH Q4H [facility] Last Admin: 07/05/20 05:58 Dose: Not Given Documented by: Albuterol/Ipratropium (Albuterol/Ipratropium 4 Gm Inhalation [place]) 0 gm INH Q4HRRT [facility] Last Admin: 07/16/20 14:35 Dose: 1 puff Documented by: Benzonatate (Tessalon Perles) 100 mg PO TID PRN PRN Reason: Cough Last Admin: 07/04/20 00:08 Dose: 100 mg Documented by: Benzonatate (Benzonatate 100 Mg Cap) 200 mg PO TID PRN PRN Reason: Cough Last Admin: 07/15/20 05:07 Dose: 200 mg Documented by: Cholecalciferol (Cholecalciferol (Vitamin D3) 25 Mcg Tab) 150 mcg PO DAILY [facility] Last Admin: 07/16/20 09:11 Dose: 150 mcg Documented by: Dexamethasone (Decadron) 6 mg IVPUSH ONETIME ONE Stop: 07/03/20 12:37 Last Admin: 07/03/20 13:34 Dose: 6 mg Documented by: Dexamethasone (Dexamethasone 4 Mg Tab) 6 mg PO Q24H [facility] Last Admin: 07/13/20 11:00 Dose: 6 mg Documented by: Docusate Sodium (Docusate Sodium 100 Mg Cap) 100 mg PO BID PRN PRN Reason: Constipation Last Admin: 07/09/20 18:19 Dose: 100 mg Documented by: Enoxaparin Sodium (Enoxaparin 40 Mg/0.4 Ml Syringe) 40 mg SUBCUT Q24H YADY Last Admin: 07/15/20 15:45 Dose: 40 mg Documented by: Furosemide (Lasix) 20 mg IVPUSH ONETIME ONE Stop: 07/08/20 11:11 Last Admin: 07/08/20 11:39 Dose: 20 mg Documented by: Furosemide (Lasix) 20 mg IVPUSH ONETIME ONE Stop: 07/09/20 13:27 Last Admin: 07/09/20 13:58 Dose: 20 mg Documented by: Furosemide (Lasix) 20 mg IVPUSH ONETIME ONE Stop: 07/10/20 11:07 Last Admin: 07/10/20 12:42 Dose: 20 mg Documented by: Guaifenesin/Codeine Phosphate (Codeine/Guaifenesin 10-100 Mg/5 Ml Syrup 5 Ml Cup) 5 ml PO Q6H PRN PRN Reason: Cough Last Admin: 07/16/20 12:00 Dose: 5 ml Documented by: Remdesivir 200 mg/ Sodium (Chloride) 250 mls @ 250 mls/hr IV ONETIME ONE Stop: 07/03/20 13:02 Last Admin: 07/03/20 14:41 Dose: Not Given Documented by: Remdesivir 200 mg/ Sodium (Chloride) 250 mls @ 250 mls/hr IV ONETIME ONE Stop: 07/03/20 14:44 Last Admin: 07/03/20 14:21 Dose: 250 mls/hr Documented by: Remdesivir 100 mg/ Sodium (Chloride) 100 mls @ 100 mls/hr IV Q24H YADY Stop: 07/07/20 14:59 Last Admin: 07/07/20 14:10 Dose: 100 mls/hr Documented by: Levofloxacin/Dextrose 750 mg/ (Premix) 150 mls @ 100 mls/hr IV Q24H [facility] Last Admin: 07/14/20 10:22 Dose: 100 mls/hr Documented by: Iodixanol (Visipaque 320) 100 ml IVPUSH ONETIME ONE Stop: 07/06/20 16:05 Last Admin: 07/06/20 16:05 Dose: 100 ml Documented by: Iopamidol (Isovue Multipack-370 (76%)) 100 ml IVPUSH ONETIME STA Stop: 07/06/20 16:01 Last Admin: 07/06/20 16:01 Dose: 100 ml Documented by: Iopamidol (Isovue Multipack-370 (76%)) 100 ml IVPUSH ONETIME ONE Stop: 07/08/20 12:59 Last Admin: 07/08/20 12:58 Dose: 100 ml Documented by: Lorazepam (Lorazepam 2 Mg/Ml Sdv) 1 mg IVPUSH Q6H PRN PRN Reason: Anxiety Last Admin: 07/09/20 18:16 Dose: 1 mg Documented by: Pantoprazole Sodium (Pantoprazole 40 Mg Tab.Cr) 40 mg PO DAILY YADY Last Admin: 07/16/20 09:11 Dose: 40 mg Documented by: Polyethylene Glycol (Polyethylene Glycol 3350 Powder 17 Gm Packet) 17 gm PO BEDTIME PRN PRN Reason: Constipation Last Admin: 07/13/20 18:38 Dose: 17 gm Documented by: Sodium Chloride (Sodium Chloride 0.9% 10 Ml Syringe) 10 ml FLUSH ASDIRECTED PRN PRN Reason: Keep Vein Open Last Admin: 07/06/20 21:31 Dose: 10 ml Documented by: Sodium Chloride (Sodium Chloride 0.9% 2.5 Ml Syringe) 2.5 ml FLUSH ASDIRECTED PRN PRN Reason: Keep Vein Open Last Admin: 07/10/20 11:04 Dose: 2.5 ml Documented by: - Free Text/Narrative Note: I have seen and evaluated the patient with the resident. I discussed findings and treatment plan with the resident. I agree with the assessment and plan outlined in the resident's note.
[2020-07-16] MEDS: Codeine/guaiFENesin 10-100 MG/5 ML Syrup 5 ML Cup PO PRN (12:00)
== END 2020-07-16 15:35 | disposition home or self-care (01) | DRG 177 ==
LOC: MW.ED 10:39 → MW.MS 13:02 → UNDOADMOB 13:12 → MW.ICU 07-10 16:00 → MW.MS 07-15 14:32
PROVIDERS: ADMIT Internal Medicine; ATTEND Internal Medicine
PROC: XW033E5 Introduction of Remdesivir Anti-infective into Peripheral Vein, Percutaneous Approach, New Technology Group 5 (ICD-10-PCS; 2020-07-03)
PROC: 5A0955A Assistance with Respiratory Ventilation, Greater than 96 Consecutive Hours, High Flow/Velocity Cannula (ICD-10-PCS; principal; 2020-07-07)
DX: U07.1 COVID-19 (principal); J96.01 Acute respiratory failure with hypoxia; J12.82 Pneumonia due to coronavirus disease 2019; E55.9 Vitamin D deficiency, unspecified; D69.6 Thrombocytopenia, unspecified; Z87.891 Personal history of nicotine dependence
CPT/HCPCS: 0240U; 36415; 36600; 71045; 71045-26; 71275; 71275-26; 80048; 80053; 82248; 82306; 82803; 83735; 83880; 84100; 84484; 85025; 93005; 93010; 94640; 94660; 94667; 94668; 99283; 99285-25; A9270-GY; J1100; J1650; J1940; J1956; J2060; J7050; J8540; Q9967

== ENCOUNTER 2023-11-08 19:35 | Emergency (ER) | payer SELFPAY ==
[2023-11-08] MEDS: Ketorolac 30 MG/ML SDV IVPUSH ONE (19:55)
[2023-11-08] MEDS: Sodium Chloride 0.9% 1,000 ML IV ONE (19:55)
[2023-11-08] MEDS: Sodium Chloride 0.9% 10 ML Syringe FLUSH PRN (19:55)
[2023-11-08] MEDS: Sodium Chloride 0.9% 2.5 ML Syringe FLUSH PRN (19:55)
[2023-11-08 20:24] LABS: BASOPHILS ABSOLUTE AUTO 0.07 K/uL (0.00-0.20); BASOPHILS PERCENT AUTO 0.6 % (0.0-1.0); EOSINOPHILS ABSOLUTE AUTO 0.26 K/uL (0.00-0.45); EOSINOPHILS PERCENT AUTO 2.3 % (0.0-6.0); HEMATOCRIT 46.8 % (42.0-52.0); HEMOGLOBIN 16.2 g/dL (14.0-18.0); IMMATURE GRAN ABSOLUTE AUTO 0.05 K/uL (0.00-0.05); IMMATURE GRAN PERCENT AUTO 0.4 % (0.0-0.4); LYMPHOCYTES ABSOLUTE AUTO 2.83 K/uL (1.00-4.80); LYMPHOCYTES PERCENT AUTO 24.5 % (24.0-44.0); MEAN CORPUSCULAR HEMOGLOBIN 32.2 pg (28.0-32.0); MEAN CORPUSCULAR HGB CONC 34.6 g/dL (32.0-36.0); MEAN PLATELET VOLUME 11.2 fL (9.4-12.4); MONOCYTES ABSOLUTE AUTO 1.25 K/uL (0.00-0.80); MONOCYTES PERCENT AUTO 10.8 % (0.0-8.0); NEUTROPHILS ABSOLUTE AUTO 7.09 K/uL (1.80-7.70); NEUTROPHILS PERCENT AUTO 61.4 % (41.0-71.0); PLATELET COUNT,PLT 166 K/uL (150-400); RED BLOOD CELL COUNT 5.03 M/uL (4.52-5.90); WHITE BLOOD CELL COUNT,WBC 11.55 K/uL (3.9-11.3)
[2023-11-08 20:49] LABS: A/G RATIO 0.9 (0.9-1.6); ALBUMIN 3.5 g/dL (3.4-5.0); BILIRUBIN TOTAL 0.3 mg/dL (0.2-1.0); CARBON DIOXIDE,CO2 25.6 mmol/L (21.0-32.0); CREATININE 0.8 mg/dL (0.8-1.3); EST CRCL DRUG DOSING (CG) 90.44 mL/min; PROTEIN TOTAL,TP 7.3 g/dL (6.4-8.2)
[2023-11-08 21:08] LABS: APPEARANCE,URINE CLEAR; BILIRUBIN,URINE NEGATIVE (NEGATIVE); COLOR,URINE YELLOW; GLUCOSE,URINE NEGATIVE (NEGATIVE); KETONES,URINE NEGATIVE (NEGATIVE); LEUKOCYTE ESTERASE,URINE NEGATIVE (NEGATIVE); NITRITE,URINE NEGATIVE (NEGATIVE); OCCULT BLOOD,URINE SMALL (NEGATIVE); PROTEIN,URINE NEGATIVE (NEGATIVE); UROBILINOGEN,URINE 0.2 EU/dL (<2.0)
[2023-11-08 21:12] LABS: BACTERIA,URINE RARE (NEGATIVE); EPITHELIAL CELLS,URINE RARE (NONE-FEW); WBC,URINE 0-2 (0-5/HPF)
[2023-11-08 23:24] LABS: C. TRACHOMATIS BY PCR NOT DETECTED; N. GONORRHOEAE BY PCR NOT DETECTED
== END 2023-11-09 01:05 | disposition home or self-care (01) ==
LOC: MW.ED 19:35
DX: R10.32 Left lower quadrant pain (principal)
CPT/HCPCS: 36415; 74176; 76870; 80053; 81001; 83690; 85025; 87491; 87591; 93976; 96361; 96374; 99284; J1885; J3490; J7030